=== PATIENT | female | born 1960 | race Caucasian/White ===

== ENCOUNTER 2017-08-11 00:04 | Emergency (ER) | payer MEDICAID ==
[~2017-08-11] VITALS: Ht 152.4 cm; Wt 43.5 kg
[~2017-08-11 00:04] MED LIST: FURO-150 PO; GLYB2.5T4 PO; INSU100C10 SQ; INSU100V9 SQ; LACT10SO PO; OXYB5TAB11 PO; PROP20TA6 PO; RIFA550T PO; SPIR50TA3 PO
[2017-08-11 00:32] VITALS: BP 148/92
== END 2017-08-11 01:18 | disposition left against medical advice (07) ==
LOC: ER 00:04
DX: M79.601 Pain in right arm (principal); Z53.21 Procedure and treatment not carried out due to patient leaving prior to being seen by health care provider
CPT/HCPCS: 82948

== ENCOUNTER 2017-08-17 10:17 | Day surgery (SDC) | payer MEDICAID ==
[2017-08-17] MEDS ORDERED: LIDOcaine 2% 5ml jelly ONE (11:03)
== END 2017-08-17 11:42 | disposition home or self-care (01) ==
LOC: WOUND CARE 10:17
PROVIDERS: ATTEND Surgery
DX: L98.491 Non-pressure chronic ulcer of skin of other sites limited to breakdown of skin (principal)
CPT/HCPCS: 97597; A6021; A6206; A6212

== ENCOUNTER 2017-08-20 11:16 | Day surgery (SDC) | payer MEDICAID ==
[2017-08-20] MEDS ORDERED: LIDOcaine 2% 5ml jelly ONE (12:01)
== END 2017-08-20 13:00 | disposition home or self-care (01) ==
LOC: WOUND CARE 11:16
PROVIDERS: ATTEND Surgery
DX: E11.622 Type 2 diabetes mellitus with other skin ulcer (principal); L98.491 Non-pressure chronic ulcer of skin of other sites limited to breakdown of skin; F17.200 Nicotine dependence, unspecified, uncomplicated
CPT/HCPCS: 36416; 82948; 97597; A6021; A6196; A6212; A6223

== ENCOUNTER 2017-08-24 10:18 | Outpatient (CLI) | payer MEDICAID ==
[2017-08-24] MEDS ORDERED: LIDOcaine 2% 5ml jelly ONE (11:26)
== END 2017-08-24 11:57 | disposition home or self-care (01) ==
LOC: WOUND CARE 10:18
PROVIDERS: ATTEND Surgery
DX: E11.622 Type 2 diabetes mellitus with other skin ulcer (principal); L98.491 Non-pressure chronic ulcer of skin of other sites limited to breakdown of skin; F17.200 Nicotine dependence, unspecified, uncomplicated
CPT/HCPCS: 36416; 82948; 99215; A6021; A6206; A6446

== ENCOUNTER 2017-08-31 10:43 | Day surgery (SDC) | payer MEDICAID ==
[2017-08-31] MEDS ORDERED: LIDOcaine 2% 5ml jelly ONE (11:14)
[2017-08-31] MEDS ORDERED: silver sulfadiazine cream 50gm TP ONE (11:29)
[2017-08-31] MEDS ORDERED: SILV20CR13 TOP (12:12)
== END 2017-08-31 12:35 | disposition home or self-care (01) ==
LOC: WOUND CARE 10:43
PROVIDERS: ATTEND Surgery
DX: E11.622 Type 2 diabetes mellitus with other skin ulcer (principal); L98.491 Non-pressure chronic ulcer of skin of other sites limited to breakdown of skin; L97.211 Non-pressure chronic ulcer of right calf limited to breakdown of skin; F17.200 Nicotine dependence, unspecified, uncomplicated
CPT/HCPCS: 17250; 36416; 82948; A6196; A6212; A6213

== ENCOUNTER 2017-09-14 20:43 | Emergency (ER) | payer MEDICAID ==
[~2017-09-14] VITALS: Ht 152.4 cm; Wt 43.0 kg
[~2017-09-14 20:43] MED LIST changes: +SILV20CR13 TOP
[2017-09-14] MEDS ORDERED: insulin regular, human 10 units/0.1 ml syringe SQ ONE (21:15)
[2017-09-14] MEDS ORDERED: normal saline 1000ML IV soln IVB ONE (21:15)
[2017-09-14 21:24] LABS: BASOPHILS % (AUTO) 0.7 % (0-1); EOSINOPHILS # (AUTO) 0.1 X10'3 (0-0.9); EOSINOPHILS % (AUTO) 1.5 % (0-6); HEMATOCRIT 39.7 % (35.0-45.0); HEMOGLOBIN 13.5 g/dl (12.0-16.0); LYMPHOCYTES % (AUTO) 21.3 % (21-51); MEAN CORPUSCULAR HEMOGLOBIN 28.8 PG (27.0-31.0); MEAN CORPUSCULAR HGB CONC 33.9 % (33.0-36.5); MEAN PLATELET VOLUME 9.8 FL (7.4-10.4); MONOCYTES # (AUTO) 0.2 X10'3 (0-0.9); MONOCYTES % (AUTO) 4.8 % (2-12); NEUTROPHILS # (AUTO) 3.3 X10'3 (1.8-7.7); NEUTROPHILS % (AUTO) 71.7 % (42-75); RED BLOOD COUNT 4.67 X10'6 (4.20-5.60); RED CELL DISTRIBUTION WIDTH 14.6 % (11.5-14.5); WHITE BLOOD COUNT 4.6 X10'3 (4.5-11.0)
[2017-09-14 21:32] LABS: PARTIAL THROMBOPLASTIN TIME 24 SECONDS (22-32); PROTHROMBIN TIME 10.4 SECONDS (9.0-12.0)
[2017-09-14 21:44] LABS: ALANINE AMINOTRANSFERASE 223 U/L (12-78); ALBUMIN 2.2 G/DL (3.4-5.0); ALBUMIN/GLOBULIN RATIO 0.4 (1.1-1.5); ALKALINE PHOSPHATASE 819 IU/L (46-116); ANION GAP 7 (8-16); ASPARTATE AMINO TRANSFERASE 159 U/L (10-37); BILIRUBIN,TOTAL 0.5 MG/DL (0.1-1.0); BLOOD UREA NITROGEN 18 MG/DL (7-18); BUN/CREATININE RATIO 23.4 (6.6-38.0); CALCIUM 8.8 MG/DL (8.5-10.1); CHLORIDE 95 MMOL/L (99-107); CREATININE 0.77 MG/DL (0.40-0.90); MAGNESIUM 1.5 MG/DL (1.5-2.4); POTASSIUM 4.6 MMOL/L (3.5-5.1); SODIUM 131 MMOL/L (135-145); TOTAL PROTEIN 7.4 G/DL (6.4-8.2); eGFR 77 ML/MIN
[2017-09-14 21:47] LABS: GLUCOSE 576 MG/DL (70-104)
[2017-09-14] MEDS ORDERED: metoclopramide 5 mg/ml inj IM ONE (22:55)
[2017-09-14 22:58] LABS: CLARITY,URINE CLEAR (Clear); COLOR,URINE YELLOW (Yellow); GLUCOSE, URINE >=1000 mg/dl (Neg); KETONES,URINE NEGATIVE (Neg); LEUKOCYTE ESTERASE ,URINE NEGATIVE (Neg); NITRITES, URINE NEGATIVE (Neg); OCCULT BLOOD,URINE TRACE-INTACT (Neg); PROTEIN,URINE 100 mg/dl (Neg)
[2017-09-14 23:00] LABS: UA COLLECTION TYPE CLN CATCH MIDSTREAM
[2017-09-14 23:03] VITALS: BP 152/95
[2017-09-14 23:04] LABS: BACTERIA,URINE 3+ /HPF (Neg); SQUAMOUS EPITHELIAL CELL,UR FEW /LPF (FEW); WBC,URINE 0-4 /HPF (0-4)
[2017-09-15 00:08] LABS: PLATELET COUNT 82 X10'3 (140-440)
== END 2017-09-14 23:47 | disposition home or self-care (01) ==
LOC: ER 20:44
DX: E11.65 Type 2 diabetes mellitus with hyperglycemia (principal); F15.90 Other stimulant use, unspecified, uncomplicated; R74.0 Nonspecific elevation of levels of transaminase and lactic acid dehydrogenase [LDH]; F17.200 Nicotine dependence, unspecified, uncomplicated; F11.10 Opioid abuse, uncomplicated; Z60.2 Problems related to living alone; Z56.0 Unemployment, unspecified; Z79.4 Long term (current) use of insulin
CPT/HCPCS: 36415; 71045; 80053; 81001; 82140; 82948; 83735; 85025; 85610; 85730; 96360; 96372; 99285; J1815; J2765; J7030

== ENCOUNTER 2017-12-05 16:53 | Emergency (ER) | payer MEDICAID ==
[~2017-12-05] VITALS: Ht 152.4 cm; Wt 60.9 kg
[2017-12-05 18:33] LABS: BASOPHILS % (AUTO) 0.4 % (0-1); EOSINOPHILS # (AUTO) 0.1 X10'3 (0-0.9); EOSINOPHILS % (AUTO) 1.6 % (0-6); HEMATOCRIT 38.2 % (35.0-45.0); HEMOGLOBIN 12.6 g/dl (12.0-16.0); LYMPHOCYTES # (AUTO) 0.9 X10'3 (1.1-4.8); LYMPHOCYTES % (AUTO) 10.5 % (21-51); MEAN CORPUSCULAR HEMOGLOBIN 26.9 PG (27.0-31.0); MEAN CORPUSCULAR HGB CONC 33.1 % (33.0-36.5); MEAN CORPUSCULAR VOLUME 81.4 FL (78-98); MEAN PLATELET VOLUME 7.7 FL (7.4-10.4); MONOCYTES # (AUTO) 0.2 X10'3 (0-0.9); MONOCYTES % (AUTO) 2.8 % (2-12); NEUTROPHILS % (AUTO) 84.7 % (42-75); PLATELET COUNT 241 X10'3 (140-440); RED BLOOD COUNT 4.69 X10'6 (4.20-5.60); WHITE BLOOD COUNT 8.3 X10'3 (4.5-11.0)
[2017-12-05 18:43] LABS: PARTIAL THROMBOPLASTIN TIME 24 SECONDS (22-32); PROTHROMBIN TIME 10.7 SECONDS (9.0-12.0)
[2017-12-05 19:00] LABS: ALANINE AMINOTRANSFERASE 48 U/L (12-78); ALBUMIN 2.2 G/DL (3.4-5.0); ALBUMIN/GLOBULIN RATIO 0.4 (1.1-1.5); ALKALINE PHOSPHATASE 439 IU/L (46-116); ANION GAP 8 (8-16); ASPARTATE AMINO TRANSFERASE 43 U/L (10-37); BILIRUBIN,TOTAL 0.4 MG/DL (0.1-1.0); BLOOD UREA NITROGEN 12 MG/DL (7-18); BUN/CREATININE RATIO 14.3 (6.6-38.0); CALCIUM 8.9 MG/DL (8.5-10.1); CHLORIDE 95 MMOL/L (99-107); CREATININE 0.84 MG/DL (0.40-0.90); LIPASE 238 U/L (73-393); POTASSIUM 3.7 MMOL/L (3.5-5.1); SODIUM 132 MMOL/L (135-145); TOTAL CARBON DIOXIDE 29.4 MMOL/L (24-32); TOTAL PROTEIN 7.7 G/DL (6.4-8.2); eGFR 70 ML/MIN
[2017-12-05 19:03] LABS: GLUCOSE 575 MG/DL (70-104)
[2017-12-05] MEDS ORDERED: albumin (human) 25% 100 ML IV solution IV ONE (19:45)
[2017-12-05] MEDS ORDERED: ketorolac tromethamine 15mg/ml inj. IM ONE (19:55)
[2017-12-05] MEDS ORDERED: BUPIVAcaine/PF 2.5 mg/ml (0.25%) 30ml vial IJ ONE (20:10)
[2017-12-05 20:45] LABS: BODY FLUID PH (NON-PLEURAL) 7.5
[2017-12-05 21:15] LABS: GLUCOSE,BODY FLUID 606 MG/DL
[2017-12-05 21:32] LABS: TOTAL PROTEIN,BODY FLUID < 2.0 G/DL
[2017-12-05 21:37] LABS: BFAPPEAR CLEAR
[2017-12-05 21:38] LABS: BF MESOTHELIAL CELLS FEW; BF RBC COUNT 64 /CU MM; BF WBC COUNT 130 /CU MM (0-1000); BFCOLOR STRAW; BFVOLUME 20 ML; LYMPHOCYTES,BODY FLUID 78 %; MONOCYTES,BODY FLUID 13 %; NEUTROPHILS,BODY FLUID 9 %
[2017-12-05] MEDS ORDERED: normal saline 1000ML IV soln IVB ONE (21:40)
[2017-12-05] MEDS ORDERED: insulin regular, human 10 units/0.1 ml syringe IV ONE (21:40)
[2017-12-06 00:09] VITALS: BP 151/78
== END 2017-12-06 00:16 | disposition home or self-care (01) ==
LOC: ER 16:54
DX: I10 Essential (primary) hypertension (principal); K74.69 Other cirrhosis of liver; B18.2 Chronic viral hepatitis C; E10.65 Type 1 diabetes mellitus with hyperglycemia; R18.8 Other ascites; F17.200 Nicotine dependence, unspecified, uncomplicated; F15.10 Other stimulant abuse, uncomplicated; F12.10 Cannabis abuse, uncomplicated; F11.10 Opioid abuse, uncomplicated; Z79.4 Long term (current) use of insulin; Z60.2 Problems related to living alone; Z56.0 Unemployment, unspecified; Z88.8 Allergy status to other drugs, medicaments and biological substances; Z79.899 Other long term (current) drug therapy
CPT/HCPCS: 36415; 49083; 80053; 82140; 82945; 82948; 83690; 83986; 84157; 85025; 85610; 85730; 87015; 87070; 89051; 96372; 96374; 96375; 99285; A6257; J1815; J1885; J3490; J7030; P9047

== ENCOUNTER 2017-12-27 15:51 | Inpatient (IN) | payer MEDICAID ==
[~2017-12-27] VITALS: Ht 152.4 cm; Wt 58.4 kg
[2017-12-27 16:34] LABS: BASOPHILS # (AUTO) 0.1 X10'3 (0-0.2); BASOPHILS % (AUTO) 0.7 % (0-1); EOSINOPHILS # (AUTO) 0.2 X10'3 (0-0.9); EOSINOPHILS % (AUTO) 2.1 % (0-6); HEMATOCRIT 23.2 % (35.0-45.0); HEMOGLOBIN 7.3 g/dl (12.0-16.0); LYMPHOCYTES % (AUTO) 27.8 % (21-51); MEAN CORPUSCULAR HEMOGLOBIN 24.3 PG (27.0-31.0); MEAN CORPUSCULAR HGB CONC 31.5 % (33.0-36.5); MEAN PLATELET VOLUME 8.4 FL (7.4-10.4); MONOCYTES # (AUTO) 0.4 X10'3 (0-0.9); MONOCYTES % (AUTO) 5.3 % (2-12); NEUTROPHILS # (AUTO) 4.6 X10'3 (1.8-7.7); NEUTROPHILS % (AUTO) 64.1 % (42-75); PLATELET COUNT 153 X10'3 (140-440); RED BLOOD COUNT 3.02 X10'6 (4.20-5.60); RED CELL DISTRIBUTION WIDTH 16.9 % (11.5-14.5); WHITE BLOOD COUNT 7.1 X10'3 (4.5-11.0)
[2017-12-27 16:43] LABS: PROTHROMBIN TIME 10.8 SECONDS (9.0-12.0)
[2017-12-27 16:58] LABS: ALANINE AMINOTRANSFERASE 52 U/L (12-78); ALBUMIN 2.1 G/DL (3.4-5.0); ALBUMIN/GLOBULIN RATIO 0.4 (1.1-1.5); ALKALINE PHOSPHATASE 309 IU/L (46-116); ANION GAP 7 (8-16); ASPARTATE AMINO TRANSFERASE 49 U/L (10-37); BILIRUBIN,TOTAL 0.3 MG/DL (0.1-1.0); BLOOD UREA NITROGEN 8 MG/DL (7-18); BUN/CREATININE RATIO 10.7 (6.6-38.0); CALCIUM 8.1 MG/DL (8.5-10.1); CHLORIDE 99 MMOL/L (99-107); CREATININE 0.75 MG/DL (0.40-0.90); MAGNESIUM 1.8 MG/DL (1.5-2.4); SODIUM 136 MMOL/L (135-145); TOTAL CARBON DIOXIDE 29.6 MMOL/L (24-32); TOTAL PROTEIN 7.1 G/DL (6.4-8.2); eGFR 79 ML/MIN
[2017-12-27 17:08] LABS: GLUCOSE 487 MG/DL (70-104)
[2017-12-27] MEDS ORDERED: pantoprazole 40 MG vial IV ONE (17:20)
[2017-12-27] MEDS ORDERED: normal saline 1000ML IV soln IVB ONE (17:20)
[2017-12-27] MEDS ORDERED: furosemide 10 MG/1 ML 10ml inj IV ONE (17:20)
[2017-12-27] MEDS ORDERED: lactulose 20gm/30ml cup PO PRN (17:30)
[2017-12-27] MEDS ORDERED: metoclopramide 5 mg/ml inj IV PRN (17:35)
[2017-12-27] MEDS ORDERED: diphenhydrAMINE 25mg capsule PO PRN (17:35)
[2017-12-27] MEDS ORDERED: mag hydrox/Alum hydrox/simeth 30ml oral suspension PO PRN (17:35)
[2017-12-27] MEDS ORDERED: ondansetron/PF 4mg/2ml inj IV PRN (17:35)
[2017-12-27] MEDS ORDERED: bisacodyl 10mg suppository rectal RC PRN (17:35)
[2017-12-27] MEDS ORDERED: magnesium hydroxide 30ml (MOM) UD suspension PO PRN (17:35)
[2017-12-27] MEDS ORDERED: diphenhydrAMINE 50 mg/ml inj IV PRN (17:35)
[2017-12-27] MEDS ORDERED: morphine 4 MG/ML inj SYRINge IV PRN ×2 (17:35)
[2017-12-27] MEDS ORDERED: acetaminophen 325mg tablet PO PRN ×2 (17:35)
[2017-12-27] MEDS ORDERED: acetaminophen 650mg rectal suppository RC PRN (17:35)
[2017-12-27] MEDS ORDERED: HYDROmorphone 1 mg/ml syringe IV PRN ×2 (17:35)
[2017-12-27] MEDS ORDERED: insulin Lispro (HumaLOG) vial - multi-dose SQ SCH (17:40)
[2017-12-27] MEDS ORDERED: dextrose ORAL solution 15 GM/59 ML bottle PO PRN (17:40)
[2017-12-27] MEDS ORDERED: MESSAGE TO PHARMACY PO ONE (17:40)
[2017-12-27] MEDS ORDERED: dextrose 50%-water 50ml dispensing syringe IV PRN ×2 (17:40)
[2017-12-27] MEDS ORDERED: glucagon, human recombinant 1mg kit SUBCUT PRN (17:40)
[2017-12-27 18:10] LABS: HEMOGLOBIN A1C 12.9 % (4.5-6.2)
[2017-12-27 18:20] LABS: LIPASE 190 U/L (73-393); PHOSPHORUS 3.2 MG/DL (2.3-4.5)
[2017-12-27] MEDS: CefTRIAXone/D5W-Rocephin 1gm 50 ML IV SCH (18:45)
[2017-12-27] MEDS: pantoprazole 40 MG vial IV SCH (18:45)
[2017-12-27] MEDS: spironolactone 50 MG tablet PO SCH (19:13)
[2017-12-27] MEDS: furosemide 10 MG/1 ML 10ml inj IV SCH (19:53)
[2017-12-27] MEDS: docusate sod 100mg capsule PO SCH (19:54)
[2017-12-27] MEDS: oxybutynin 5mg tablet PO SCH (19:54)
[2017-12-27] MEDS: rifaximin 550mg tablet PO SCH (19:54)
[2017-12-27] MEDS: propranolol 10mg tablet PO SCH (20:00)
[2017-12-27] MEDS ORDERED: temazepam 15mg capsule PO PRN (21:00)
[2017-12-27 21:10] VITALS: BP 126/79
[2017-12-27] MEDS ORDERED: insulin Lispro (HumaLOG) vial - multi-dose SQ ONE (21:55)
[2017-12-27 22:00] VITALS: BP 126/79
[2017-12-27] MEDS: insulin glargine (Lantus) pen - multi-dose SQ SCH (22:16)
[2017-12-27] MEDS: HYDROcodone/acetaminophen 10/325mg tab PO PRN (23:08)
[2017-12-27 23:23] VITALS: BP 128/76
[2017-12-27 23:38] LABS: CLARITY,URINE SLIGHTLY CLOUDY (Clear); COLOR,URINE STRAW (Yellow); GLUCOSE, URINE >=1000 mg/dl (Neg); KETONES,URINE NEGATIVE (Neg); LEUKOCYTE ESTERASE ,URINE LARGE (Neg); NITRITES, URINE NEGATIVE (Neg); OCCULT BLOOD,URINE TRACE-INTACT (Neg); PH,URINE 6.5 (4.8-8.0); PROTEIN,URINE NEGATIVE (Neg); UROBILINOGEN,URINE 0.2 E.U/dL (0.2-1.0)
[2017-12-27 23:45] VITALS: BP 125/73
[2017-12-27 23:47] LABS: UA COLLECTION TYPE CLN CATCH MIDSTREAM; URINE AMPHETAMINE SCREEN POSITIVE (Neg); URINE BARBITUATE SCREEN NEGATIVE (Neg); URINE BENZODIAZEPINES SCREEN NEGATIVE (Neg); URINE CANNABINOID SCREEN NEGATIVE (Neg); URINE COCAINE SCREEN NEGATIVE (Neg); URINE METHADONE SCREEN NEGATIVE (Neg); URINE OPIATE SCREEN POSITIVE (Neg); URINE PHENCYCLIDINE SCREEN NEGATIVE (Neg); WBC,URINE 30-50 /HPF (0-4)
[2017-12-27 23:48] LABS: BACTERIA,URINE 4+ /HPF (Neg); RBC,URINE 0-2 /HPF (0-2); SQUAMOUS EPITHELIAL CELL,UR NONE SEEN /LPF (FEW)
[2017-12-28] VITALS (17 sets, daily range): BP systolic 94–120; BP diastolic 43–76
[2017-12-28] MEDS: dextrose ORAL solution 15 GM/59 ML bottle PO PRN ×2 (04:23→04:39)
[2017-12-28 05:21] LABS: BASOPHILS # (AUTO) 0.1 X10'3 (0-0.2); BASOPHILS % (AUTO) 0.7 % (0-1); EOSINOPHILS # (AUTO) 0.5 X10'3 (0-0.9); EOSINOPHILS % (AUTO) 4.5 % (0-6); HEMATOCRIT 30.9 % (35.0-45.0); HEMOGLOBIN 9.9 g/dl (12.0-16.0); LYMPHOCYTES # (AUTO) 2.3 X10'3 (1.1-4.8); LYMPHOCYTES % (AUTO) 19.3 % (21-51); MEAN CORPUSCULAR HEMOGLOBIN 24.8 PG (27.0-31.0); MEAN CORPUSCULAR HGB CONC 32.1 % (33.0-36.5); MEAN CORPUSCULAR VOLUME 77.1 FL (78-98); MEAN PLATELET VOLUME 6.9 FL (7.4-10.4); MONOCYTES # (AUTO) 0.6 X10'3 (0-0.9); NEUTROPHILS # (AUTO) 8.2 X10'3 (1.8-7.7); NEUTROPHILS % (AUTO) 70.5 % (42-75); PLATELET COUNT 283 X10'3 (140-440); RED BLOOD COUNT 4.01 X10'6 (4.20-5.60); RED CELL DISTRIBUTION WIDTH 15.6 % (11.5-14.5); WHITE BLOOD COUNT 11.7 X10'3 (4.5-11.0)
[2017-12-28 05:49] LABS: ALANINE AMINOTRANSFERASE 49 U/L (12-78); ALBUMIN 1.9 G/DL (3.4-5.0); ALBUMIN/GLOBULIN RATIO 0.4 (1.1-1.5); ALKALINE PHOSPHATASE 253 IU/L (46-116); ANION GAP 6 (8-16); ASPARTATE AMINO TRANSFERASE 60 U/L (10-37); BILIRUBIN,TOTAL 0.6 MG/DL (0.1-1.0); BLOOD UREA NITROGEN 9 MG/DL (7-18); BUN/CREATININE RATIO 14.1 (6.6-38.0); CHLORIDE 102 MMOL/L (99-107); CREATININE 0.64 MG/DL (0.40-0.90); GLUCOSE 93 MG/DL (70-104); POTASSIUM 3.3 MMOL/L (3.5-5.1); SODIUM 138 MMOL/L (135-145); TOTAL CARBON DIOXIDE 29.6 MMOL/L (24-32); TOTAL PROTEIN 6.8 G/DL (6.4-8.2); eGFR > 90 ML/MIN
[2017-12-28] MEDS: pantoprazole 40 MG vial IV SCH (07:30)
[2017-12-28] MEDS: CefTRIAXone/D5W-Rocephin 1gm 50 ML IV SCH (07:30)
[2017-12-28] MEDS: oxybutynin 5mg tablet PO SCH ×2 (07:31→20:21)
[2017-12-28] MEDS: propranolol 10mg tablet PO SCH ×2 (07:31→20:21)
[2017-12-28] MEDS: furosemide 10 MG/1 ML 10ml inj IV SCH ×2 (07:31→20:21)
[2017-12-28] MEDS: rifaximin 550mg tablet PO SCH ×2 (07:31→20:21)
[2017-12-28] MEDS: spironolactone 50 MG tablet PO SCH (07:31)
[2017-12-28] MEDS: docusate sod 100mg capsule PO SCH ×2 (07:31→20:21)
[2017-12-28] MEDS: K and/or MAG REPLACEMENT MC SCH (09:40)
[2017-12-28] MEDS ORDERED: potassium Cl 20 mEq SR tablet PO PRN (09:40)
[2017-12-28] MEDS ORDERED: potassium Cl 40MEQ/NS 500ml 500 ML IV PRN ×2 (09:40)
[2017-12-28] MEDS: HYDROcodone/acetaminophen 10/325mg tab PO PRN ×2 (10:54→14:57)
[2017-12-28] MEDS: potassium Cl 20 mEq SR tablet PO PRN ×3 (10:54→20:24)
[2017-12-28] MEDS ORDERED: LIDOcaine 0.5% (5mg/ml) 50ml vial ONE (11:25)
[2017-12-28] MEDS ORDERED: albumin (human) 25% 100 ML IV solution IV ONE (12:30)
[2017-12-28] MEDS: insulin glargine (Lantus) pen - multi-dose SQ SCH (21:47)
[2017-12-28] MEDS: HYDROcodone/acetaminophen 5mg/325mg tablet PO PRN (22:23)
[2017-12-29 02:00] VITALS: BP 104/57
[2017-12-29 06:00] VITALS: BP 142/67
[2017-12-29 06:37] LABS: BASOPHILS # (AUTO) 0.1 X10'3 (0-0.2); BASOPHILS % (AUTO) 0.6 % (0-1); EOSINOPHILS # (AUTO) 0.3 X10'3 (0-0.9); EOSINOPHILS % (AUTO) 2.8 % (0-6); HEMATOCRIT 31.1 % (35.0-45.0); HEMOGLOBIN 9.8 g/dl (12.0-16.0); LYMPHOCYTES % (AUTO) 27.7 % (21-51); MEAN CORPUSCULAR HEMOGLOBIN 24.4 PG (27.0-31.0); MEAN CORPUSCULAR HGB CONC 31.6 % (33.0-36.5); MEAN CORPUSCULAR VOLUME 77.4 FL (78-98); MEAN PLATELET VOLUME 6.9 FL (7.4-10.4); MONOCYTES # (AUTO) 0.8 X10'3 (0-0.9); MONOCYTES % (AUTO) 7.1 % (2-12); NEUTROPHILS # (AUTO) 6.7 X10'3 (1.8-7.7); NEUTROPHILS % (AUTO) 61.8 % (42-75); PLATELET COUNT 314 X10'3 (140-440); RED BLOOD COUNT 4.02 X10'6 (4.20-5.60); RED CELL DISTRIBUTION WIDTH 16.5 % (11.5-14.5); WHITE BLOOD COUNT 10.8 X10'3 (4.5-11.0)
[2017-12-29 07:02] LABS: ALANINE AMINOTRANSFERASE 39 U/L (12-78); ALBUMIN 2.1 G/DL (3.4-5.0); ALBUMIN/GLOBULIN RATIO 0.5 (1.1-1.5); ALKALINE PHOSPHATASE 219 IU/L (46-116); ANION GAP 7 (8-16); ASPARTATE AMINO TRANSFERASE 48 U/L (10-37); BILIRUBIN,TOTAL 0.4 MG/DL (0.1-1.0); BLOOD UREA NITROGEN 15 MG/DL (7-18); BUN/CREATININE RATIO 23.1 (6.6-38.0); CHLORIDE 103 MMOL/L (99-107); CREATININE 0.65 MG/DL (0.40-0.90); POTASSIUM 3.5 MMOL/L (3.5-5.1); SODIUM 139 MMOL/L (135-145); TOTAL CARBON DIOXIDE 29.5 MMOL/L (24-32); TOTAL PROTEIN 6.6 G/DL (6.4-8.2); eGFR > 90 ML/MIN
[2017-12-29 07:04] LABS: GLUCOSE 46 MG/DL (70-104)
[2017-12-29] MEDS: K and/or MAG REPLACEMENT MC SCH (08:00)
[2017-12-29 10:00] VITALS: BP 114/66
[2017-12-29] MEDS: pantoprazole 40 MG vial IV SCH (10:06)
[2017-12-29] MEDS: furosemide 10 MG/1 ML 10ml inj IV SCH (10:06)
[2017-12-29] MEDS: docusate sod 100mg capsule PO SCH ×2 (10:07→20:26)
[2017-12-29] MEDS: spironolactone 50 MG tablet PO SCH (10:07)
[2017-12-29] MEDS: rifaximin 550mg tablet PO SCH ×2 (10:07→20:26)
[2017-12-29] MEDS: propranolol 10mg tablet PO SCH ×2 (10:07→20:26)
[2017-12-29] MEDS: oxybutynin 5mg tablet PO SCH ×2 (10:07→20:26)
[2017-12-29] MEDS: CefTRIAXone/D5W-Rocephin 1gm 50 ML IV SCH ×2 (10:07→20:25)
[2017-12-29] MEDS: HYDROcodone/acetaminophen 10/325mg tab PO PRN (10:08)
[2017-12-29] MEDS: HYDROcodone/acetaminophen 5mg/325mg tablet PO PRN ×2 (17:09→22:18)
[2017-12-29 18:00] VITALS: BP 125/76
[2017-12-29 22:00] VITALS: BP 125/71
[2017-12-29 22:09] LABS: CLARITY,URINE CLEAR (Clear); COLOR,URINE YELLOW (Yellow); GLUCOSE, URINE NEGATIVE (Neg); KETONES,URINE NEGATIVE (Neg); LEUKOCYTE ESTERASE ,URINE SMALL (Neg); NITRITES, URINE NEGATIVE (Neg); OCCULT BLOOD,URINE NEGATIVE (Neg); PH,URINE 7.5 (4.8-8.0); PROTEIN,URINE TRACE mg/dl (Neg)
[2017-12-29 22:10] LABS: UA COLLECTION TYPE CLN CATCH MIDSTREAM
[2017-12-29 22:23] LABS: BACTERIA,URINE FEW /HPF (Neg); MUCUS STRANDS FEW /LPF (Neg); SQUAMOUS EPITHELIAL CELL,UR FEW /LPF (FEW)
[2017-12-29 22:24] LABS: RBC,URINE NONE SEEN /HPF (0-2)
[2017-12-30] MEDS: HYDROcodone/acetaminophen 5mg/325mg tablet PO PRN ×2 (02:13→08:44)
[2017-12-30 06:00] VITALS: BP 113/52
[2017-12-30 06:32] LABS: BASOPHILS % (AUTO) 0.6 % (0-1); EOSINOPHILS # (AUTO) 0.1 X10'3 (0-0.9); EOSINOPHILS % (AUTO) 2.1 % (0-6); HEMATOCRIT 29.4 % (35.0-45.0); HEMOGLOBIN 9.4 g/dl (12.0-16.0); LYMPHOCYTES # (AUTO) 1.5 X10'3 (1.1-4.8); LYMPHOCYTES % (AUTO) 33.1 % (21-51); MEAN CORPUSCULAR HEMOGLOBIN 24.7 PG (27.0-31.0); MEAN CORPUSCULAR HGB CONC 32.2 % (33.0-36.5); MEAN CORPUSCULAR VOLUME 76.8 FL (78-98); MEAN PLATELET VOLUME 7.3 FL (7.4-10.4); MONOCYTES # (AUTO) 0.4 X10'3 (0-0.9); MONOCYTES % (AUTO) 7.9 % (2-12); NEUTROPHILS # (AUTO) 2.6 X10'3 (1.8-7.7); NEUTROPHILS % (AUTO) 56.3 % (42-75); PLATELET COUNT 169 X10'3 (140-440); RED BLOOD COUNT 3.82 X10'6 (4.20-5.60); RED CELL DISTRIBUTION WIDTH 16.5 % (11.5-14.5); WHITE BLOOD COUNT 4.6 X10'3 (4.5-11.0)
[2017-12-30 06:58] LABS: ALANINE AMINOTRANSFERASE 26 U/L (12-78); ALBUMIN 1.8 G/DL (3.4-5.0); ALBUMIN/GLOBULIN RATIO 0.4 (1.1-1.5); ALKALINE PHOSPHATASE 227 IU/L (46-116); ANION GAP 7 (8-16); ASPARTATE AMINO TRANSFERASE 38 U/L (10-37); BILIRUBIN,TOTAL 0.3 MG/DL (0.1-1.0); BLOOD UREA NITROGEN 18 MG/DL (7-18); BUN/CREATININE RATIO 21.2 (6.6-38.0); CALCIUM 7.8 MG/DL (8.5-10.1); CHLORIDE 100 MMOL/L (99-107); CREATININE 0.85 MG/DL (0.40-0.90); GLUCOSE 382 MG/DL (70-104); SODIUM 133 MMOL/L (135-145); TOTAL CARBON DIOXIDE 26.4 MMOL/L (24-32); TOTAL PROTEIN 6.1 G/DL (6.4-8.2); eGFR 69 ML/MIN
[2017-12-30] MEDS ORDERED: pantoprazole 40mg Tablet.DR PO SCH (07:30)
[2017-12-30] MEDS: K and/or MAG REPLACEMENT MC SCH (08:00)
[2017-12-30] MEDS ORDERED: NUT.TX.GLUC.INTOLER,LAC-FR,REG (BOOST GLUCOSE CONTROL) 237 ML PO SCH (08:00)
[2017-12-30] MEDS: propranolol 10mg tablet PO SCH (08:43)
[2017-12-30] MEDS: docusate sod 100mg capsule PO SCH (08:43)
[2017-12-30] MEDS: spironolactone 50 MG tablet PO SCH (08:43)
[2017-12-30] MEDS: rifaximin 550mg tablet PO SCH (08:44)
[2017-12-30] MEDS: CefTRIAXone/D5W-Rocephin 1gm 50 ML IV SCH (08:44)
[2017-12-30] MEDS: oxybutynin 5mg tablet PO SCH (08:44)
[2018-01-02 10:55] LABS: OCCULT BLOOD STOOL NEGATIVE (Neg)
== END 2017-12-30 12:44 | disposition home or self-care (01) ==
LOC: ER 15:52 → ED HOLD 17:35 → ORTHO 4S 20:48
PROVIDERS: ADMIT Family Medicine; ATTEND Family Medicine
PROC: 30233N1 Transfusion of Nonautologous Red Blood Cells into Peripheral Vein, Percutaneous Approach (ICD-10-PCS; 2017-12-27)
PROC: 0W9G3ZZ Drainage of Peritoneal Cavity, Percutaneous Approach (ICD-10-PCS; principal; 2017-12-28)
DX: K74.60 Unspecified cirrhosis of liver (principal); K76.6 Portal hypertension; R18.8 Other ascites; K72.90 Hepatic failure, unspecified without coma; E11.65 Type 2 diabetes mellitus with hyperglycemia; B19.20 Unspecified viral hepatitis C without hepatic coma; D64.9 Anemia, unspecified; N39.0 Urinary tract infection, site not specified; F11.90 Opioid use, unspecified, uncomplicated; F15.10 Other stimulant abuse, uncomplicated; Z87.11 Personal history of peptic ulcer disease; Z91.14 Patient's other noncompliance with medication regimen; Z87.01 Personal history of pneumonia (recurrent); Z88.8 Allergy status to other drugs, medicaments and biological substances; Z79.899 Other long term (current) drug therapy
CPT/HCPCS: 36415; 49083; 71045; 80053; 80305; 81001; 82140; 82272; 82948; 83036; 83605; 83690; 83735; 83880; 84100; 84443; 84484; 85025; 85610; 86885; 86900; 86901; 86920; 87040; 87070; 93005; 96374; 99285; A6212; C9113; J0696; J1815; J1940; J2001; J2270; J7030; P9016; P9047

== ENCOUNTER 2018-01-24 12:25 | Inpatient (IN) | payer MEDICAID ==
[~2018-01-24] VITALS: Ht 165.1 cm; Wt 48.5 kg
[2018-01-24] VITALS (8 sets, daily range): BP systolic 105–117; BP diastolic 40–69
[2018-01-24] MEDS: insulin glargine (Lantus) pen - multi-dose SQ SCH (00:40)
[~2018-01-24 12:25] MED LIST changes: -SPIR50TA3 PO; +SPIR50TA5 PO
[2018-01-24 13:34] LABS: BASOPHILS % (AUTO) 0.2 % (0-1); EOSINOPHILS % (AUTO) 0 % (0-6); LYMPHOCYTES % (AUTO) 19.2 % (21-51); MEAN CORPUSCULAR HGB CONC 32.2 % (33.0-36.5); MEAN CORPUSCULAR VOLUME 71.3 FL (78-98); MEAN PLATELET VOLUME 8.6 FL (7.4-10.4); MONOCYTES # (AUTO) 0.1 X10'3 (0-0.9); MONOCYTES % (AUTO) 1.8 % (2-12); NEUTROPHILS # (AUTO) 4.2 X10'3 (1.8-7.7); NEUTROPHILS % (AUTO) 78.8 % (42-75); PLATELET COUNT 230 X10'3 (140-440); RED CELL DISTRIBUTION WIDTH 19.1 % (11.5-14.5); WHITE BLOOD COUNT 5.3 X10'3 (4.5-11.0)
[2018-01-24 13:39] LABS: HEMATOCRIT 19.2 % (35.0-45.0); HEMOGLOBIN 6.2 g/dl (12.0-16.0)
[2018-01-24 13:44] LABS: INR 1.2 INR; PARTIAL THROMBOPLASTIN TIME 28 SECONDS (22-32); PROTHROMBIN TIME 11.9 SECONDS (9.0-12.0)
[2018-01-24 14:11] LABS: ALANINE AMINOTRANSFERASE 24 U/L (12-78); ALBUMIN 1.9 G/DL (3.4-5.0); ALBUMIN/GLOBULIN RATIO 0.4 (1.1-1.5); ALKALINE PHOSPHATASE 304 IU/L (46-116); ANION GAP 8 (8-16); ASPARTATE AMINO TRANSFERASE 31 U/L (10-37); BILIRUBIN,TOTAL 0.8 MG/DL (0.1-1.0); BLOOD UREA NITROGEN 17 MG/DL (7-18); BUN/CREATININE RATIO 16.5 (6.6-38.0); CALCIUM 7.8 MG/DL (8.5-10.1); CHLORIDE 94 MMOL/L (99-107); CREATININE 1.03 MG/DL (0.40-0.90); POTASSIUM 3.8 MMOL/L (3.5-5.1); SODIUM 127 MMOL/L (135-145); TOTAL CARBON DIOXIDE 24.7 MMOL/L (24-32); TOTAL PROTEIN 7.2 G/DL (6.4-8.2); eGFR 55 ML/MIN
[2018-01-24 14:14] LABS: GLUCOSE 499 MG/DL (70-104)
[2018-01-24] MEDS ORDERED: normal saline 1000ML IV soln IVB ONE (14:15)
[2018-01-24] MEDS ORDERED: vancomycin/NS 1 GM ADD-VANTAGE 250 ML X 1 DOSE IV ONE (14:25)
[2018-01-24] MEDS ORDERED: pantoprazole IV 80 MG in normal saline 100ml IV soln 100 ML IV ONE (15:20)
[2018-01-24] MEDS ORDERED: ondansetron/PF 4mg/2ml inj IV ONE (15:20)
[2018-01-24] MEDS ORDERED: pantoprazole 40 MG vial IV ONE (15:25)
[2018-01-24] MEDS: piperacillin/tazo 4.5gm/100ml 100 ML IV SCH ×2 (15:46→16:00)
[2018-01-24] MEDS: pantoprazole 40MG/NS 100ML BAG 100 ML IV SCH ×2 (16:00→20:33)
[2018-01-24] MEDS ORDERED: iohexol 300mg/ml 100ml inj. ONE (16:31)
[2018-01-24 17:32] LABS: CLARITY,URINE Cloudy (Clear); COLOR,URINE Yellow (Yellow); GLUCOSE, URINE >=1000 mg/dl (Neg); KETONES,URINE Negative (Neg); LEUKOCYTE ESTERASE ,URINE Trace (Neg); NITRITES, URINE Positive (Neg); OCCULT BLOOD,URINE Trace (Neg); PROTEIN,URINE 100 mg/dl (Neg); URINE AMPHETAMINE SCREEN POSITIVE (Neg); URINE BARBITUATE SCREEN NEGATIVE (Neg); URINE BENZODIAZEPINES SCREEN NEGATIVE (Neg); URINE CANNABINOID SCREEN POSITIVE (Neg); URINE COCAINE SCREEN NEGATIVE (Neg); URINE METHADONE SCREEN NEGATIVE (Neg); URINE OPIATE SCREEN NEGATIVE (Neg); URINE PHENCYCLIDINE SCREEN NEGATIVE (Neg)
[2018-01-24 17:34] LABS: UA COLLECTION TYPE CLN CATCH MIDSTREAM
[2018-01-24 17:40] LABS: BACTERIA,URINE 3+ /HPF (Neg); SQUAMOUS EPITHELIAL CELL,UR FEW /LPF (FEW); WBC CLUMPS,URINE FEW /HPF (NEGATIVE); WBC,URINE 50-100 /HPF (0-4)
[2018-01-24 17:41] LABS: RBC,URINE 0-2 /HPF (0-2)
[2018-01-24] MEDS ORDERED: LIDOcaine 1.5% w/epinephrine 1:200,000 5ml ampul IJ ONE (17:55)
[2018-01-24] MEDS ORDERED: octreotide inj. 1,250 MCG in normal saline 250ml IV soln 250 ML IV ONE (18:05)
[2018-01-24] MEDS ORDERED: insulin regular, human 10 units/0.1 ml syringe IV ONE (18:10)
[2018-01-24] MEDS ORDERED: acetaminophen 325mg tablet PO ONE (18:15)
[2018-01-24 18:51] LABS: ABG BASE EXCESS -2.8 mmol/L (-2.0-3.0); ABG HCO3 19.3 mmol/L (22.0-26.0); ABG OXYGEN SATURATION 91.1 % (95-98); ABG PCO2 (T) 24.2 mmHg (32.0-45.0); ABG PO2 (T) 57.3 mmHg (83-108); FCOHb 1.7 % (0.5-1.5); FMetHb 0.3 % (0.3-1.12); FO2Hb 89.3 % (94-100); PATIENT TEMPERATURE 37.5; RESPIRATORY RATE (OBSERVED) 24 b/min; TOTAL HEMOGLOBIN 7.6 G/dl (12.0-16.0)
[2018-01-24 19:24] LABS: CREATINE KINASE 125 U/L (26-192)
[2018-01-24 19:56] LABS: LYMPHOCYTES,BODY FLUID 77 %; MONOCYTES,BODY FLUID 11 %; NEUTROPHILS,BODY FLUID 12 %
[2018-01-24 19:57] LABS: BF MESOTHELIAL CELLS OCCASIONAL; BF RBC COUNT 153 /CU MM; BF WBC COUNT 23 /CU MM (0-1000); BFAPPEAR CLEAR; BFCOLOR STRAW; BFVOLUME 45 ML
[2018-01-24] MEDS ORDERED: dextrose 50%-water 50ml dispensing syringe IV PRN ×2 (20:55)
[2018-01-24] MEDS ORDERED: magnesium hydroxide 30ml (MOM) UD suspension PO PRN (20:55)
[2018-01-24] MEDS ORDERED: ondansetron/PF 4mg/2ml inj IV PRN (20:55)
[2018-01-24] MEDS ORDERED: dextrose ORAL solution 15 GM/59 ML bottle PO PRN ×2 (20:55)
[2018-01-24] MEDS ORDERED: MESSAGE TO PHARMACY PO ONE (20:55)
[2018-01-24] MEDS ORDERED: acetaminophen 650mg rectal suppository RC PRN (20:55)
[2018-01-24] MEDS ORDERED: acetaminophen 325mg tablet PO PRN ×2 (20:55)
[2018-01-24] MEDS ORDERED: potassium Cl 40MEQ/250ML bag 250 ML IV PRN ×2 (20:55)
[2018-01-24] MEDS ORDERED: glucagon, human recombinant 1mg kit SUBCUT PRN (20:55)
[2018-01-24] MEDS ORDERED: octreotide inj. 1,250 MCG in normal saline 250ml IV soln 243.75 ML IV SCH (21:15)
[2018-01-24] MEDS ORDERED: octreotide inj. 1,250 MCG in normal saline 250ml IV soln 250 ML IV SCH (21:32)
[2018-01-24] MEDS ORDERED: lactulose 20gm/30ml cup PO PRN (21:35)
[2018-01-24 22:31] LABS: BASOPHILS % (AUTO) 0.1 % (0-1); EOSINOPHILS % (AUTO) 0 % (0-6); HEMATOCRIT 25.5 % (35.0-45.0); HEMOGLOBIN 8.3 g/dl (12.0-16.0); LYMPHOCYTES # (AUTO) 0.9 X10'3 (1.1-4.8); LYMPHOCYTES % (AUTO) 20.9 % (21-51); MEAN CORPUSCULAR HEMOGLOBIN 25.2 PG (27.0-31.0); MEAN CORPUSCULAR HGB CONC 32.5 % (33.0-36.5); MEAN CORPUSCULAR VOLUME 77.3 FL (78-98); MEAN PLATELET VOLUME 7.5 FL (7.4-10.4); MONOCYTES # (AUTO) 0.1 X10'3 (0-0.9); MONOCYTES % (AUTO) 1.4 % (2-12); NEUTROPHILS # (AUTO) 3.2 X10'3 (1.8-7.7); NEUTROPHILS % (AUTO) 77.6 % (42-75); PLATELET COUNT 186 X10'3 (140-440); RED CELL DISTRIBUTION WIDTH 21.9 % (11.5-14.5); WHITE BLOOD COUNT 4.2 X10'3 (4.5-11.0)
[2018-01-24] MEDS ORDERED: vancomycin/NS 1 GM ADD-VANTAGE 250 ML IV SCH (23:00)
[2018-01-24 23:06] LABS: OCCULT BLOOD STOOL NEGATIVE (Neg)
[2018-01-24 23:12] LABS: ANISOCYTOSIS 3+; PLATELET ESTIMATE NORMAL
[2018-01-24 23:15] LABS: LARGE PLATELETS FEW; MICROCYTOSIS 2+; POLYCHROMASIA 1+
[2018-01-24] MEDS: normal saline 1000ml 1,000 ML IV SCH (23:31)
[2018-01-25] VITALS (25 sets, daily range): BP systolic 88–119; BP diastolic 43–75
[2018-01-25] MEDS ORDERED: morphine 2 MG/ML inj. syringe IV ONE (00:10)
[2018-01-25] MEDS ORDERED: insulin Lispro (HumaLOG) vial - multi-dose SQ ONE (00:17)
[2018-01-25] MEDS ORDERED: insulin glargine (Lantus) pen - multi-dose SQ ONE (00:18)
[2018-01-25] MEDS: TAZO IV ONE ×2 (00:19→00:23)
[2018-01-25] MEDS: PIPERACILLIN IV ONE ×2 (00:19→00:23)
[2018-01-25] MEDS: pantoprazole 40MG/NS 100ML BAG 100 ML IV SCH ×2 (00:30→06:04)
[2018-01-25] MEDS: piperacillin/tazo 3.375gm/50ml 50 ML IV SCH ×4 (00:41→19:49)
[2018-01-25] MEDS ORDERED: pantoprazole 40MG/NS 100ML BAG 100 ML IV SCH (01:00)
[2018-01-25 04:00] LABS: OXYGEN SATURATION (MIXED VEN) 63.4 % (60-80); PO2 MIXED VENOUS (TEMP COR) 32.4 mmHg (35-46)
[2018-01-25 05:55] LABS: INR 1.3 INR; PARTIAL THROMBOPLASTIN TIME 27 SECONDS (22-32); PROTHROMBIN TIME 13.5 SECONDS (9.0-12.0)
[2018-01-25 06:04] LABS: ALANINE AMINOTRANSFERASE 25 U/L (12-78); ALBUMIN 1.4 G/DL (3.4-5.0); ALBUMIN/GLOBULIN RATIO 0.3 (1.1-1.5); ALKALINE PHOSPHATASE 195 IU/L (46-116); ANION GAP 9 (8-16); ASPARTATE AMINO TRANSFERASE 58 U/L (10-37); BLOOD UREA NITROGEN 17 MG/DL (7-18); CALCIUM 7.1 MG/DL (8.5-10.1); CHLORIDE 103 MMOL/L (99-107); CREATININE 0.74 MG/DL (0.40-0.90); GLUCOSE 167 MG/DL (70-104); MAGNESIUM 1.4 MG/DL (1.5-2.4); PHOSPHORUS 2.6 MG/DL (2.3-4.5); POTASSIUM 3.1 MMOL/L (3.5-5.1); SODIUM 135 MMOL/L (135-145); TOTAL CARBON DIOXIDE 23.1 MMOL/L (24-32); TOTAL PROTEIN 5.9 G/DL (6.4-8.2); eGFR 81 ML/MIN
[2018-01-25 06:13] LABS: BASOPHILS % (AUTO) 0.2 % (0-1); EOSINOPHILS % (AUTO) 0.1 % (0-6); HEMATOCRIT 26.4 % (35.0-45.0); HEMOGLOBIN 8.4 g/dl (12.0-16.0); LYMPHOCYTES # (AUTO) 1.1 X10'3 (1.1-4.8); LYMPHOCYTES % (AUTO) 20.5 % (21-51); MEAN CORPUSCULAR HEMOGLOBIN 25.2 PG (27.0-31.0); MEAN CORPUSCULAR HGB CONC 31.9 % (33.0-36.5); MEAN PLATELET VOLUME 8.4 FL (7.4-10.4); MONOCYTES # (AUTO) 0.3 X10'3 (0-0.9); MONOCYTES % (AUTO) 4.7 % (2-12); NEUTROPHILS % (AUTO) 74.5 % (42-75); PLATELET COUNT 165 X10'3 (140-440); RED BLOOD COUNT 3.34 X10'6 (4.20-5.60); RED CELL DISTRIBUTION WIDTH 20.4 % (11.5-14.5); WHITE BLOOD COUNT 5.4 X10'3 (4.5-11.0)
[2018-01-25] MEDS: normal saline 1000ml 1,000 ML IV SCH ×2 (07:00→20:30)
[2018-01-25 09:13] LABS: HEMATOCRIT 28.1 % (35.0-45.0); HEMOGLOBIN 9.1 g/dl (12.0-16.0); MEAN CORPUSCULAR HEMOGLOBIN 25.6 PG (27.0-31.0); MEAN CORPUSCULAR HGB CONC 32.5 % (33.0-36.5); MEAN PLATELET VOLUME 8.3 FL (7.4-10.4); PLATELET COUNT 153 X10'3 (140-440); RED BLOOD COUNT 3.56 X10'6 (4.20-5.60); RED CELL DISTRIBUTION WIDTH 20.3 % (11.5-14.5); WHITE BLOOD COUNT 6.2 X10'3 (4.5-11.0)
[2018-01-25] MEDS ORDERED: fentaNYL/PF 50MCG/1 ML 2ML syringe ONE (09:14)
[2018-01-25] MEDS ORDERED: LIDOcaine Viscous 15ml cup ONE (09:15)
[2018-01-25] MEDS ORDERED: MIDAZolam 5mg/5ml vial ONE (09:15)
[2018-01-25 09:57] LABS: ANISOCYTOSIS 2+; PLATELET ESTIMATE NORMAL; TOTAL CELLS COUNTED 100
[2018-01-25 09:58] LABS: POLYCHROMASIA 2+
[2018-01-25] MEDS ORDERED: HYDROmorphone 2mg tablet PO ONE (14:25)
[2018-01-25] MEDS: pantoprazole 40mg Tablet.DR PO SCH ×2 (14:33→19:50)
[2018-01-25] MEDS: octreotide 100mcg/1 ml ampule SQ SCH (16:33)
[2018-01-25 16:59] LABS: HEMATOCRIT 28.5 % (35.0-45.0); HEMOGLOBIN 9.2 g/dl (12.0-16.0); MEAN CORPUSCULAR HEMOGLOBIN 25.1 PG (27.0-31.0); MEAN CORPUSCULAR HGB CONC 32.3 % (33.0-36.5); MEAN CORPUSCULAR VOLUME 77.9 FL (78-98); MEAN PLATELET VOLUME 8.3 FL (7.4-10.4); PLATELET COUNT 166 X10'3 (140-440); RED BLOOD COUNT 3.66 X10'6 (4.20-5.60); RED CELL DISTRIBUTION WIDTH 21.3 % (11.5-14.5); WHITE BLOOD COUNT 6.2 X10'3 (4.5-11.0)
[2018-01-25] MEDS: HYDROmorphone 2mg tablet PO PRN (19:50)
[2018-01-25] MEDS: insulin glargine (Lantus) pen - multi-dose SQ SCH ×2 (20:45→20:49)
[2018-01-25] MEDS: insulin Lispro (HumaLOG) vial - multi-dose SQ SCH ×2 (20:45→20:47)
[2018-01-25 21:46] LABS: HEMATOCRIT 27.8 % (35.0-45.0); MEAN CORPUSCULAR HEMOGLOBIN 25.3 PG (27.0-31.0); MEAN CORPUSCULAR HGB CONC 32.5 % (33.0-36.5); MEAN CORPUSCULAR VOLUME 77.7 FL (78-98); MEAN PLATELET VOLUME 8.2 FL (7.4-10.4); PLATELET COUNT 198 X10'3 (140-440); RED BLOOD COUNT 3.58 X10'6 (4.20-5.60); RED CELL DISTRIBUTION WIDTH 20.4 % (11.5-14.5); WHITE BLOOD COUNT 7.3 X10'3 (4.5-11.0)
[2018-01-26] VITALS (23 sets, daily range): BP systolic 93–119; BP diastolic 55–75
[2018-01-26] MEDS: octreotide 100mcg/1 ml ampule SQ SCH ×3 (00:26→16:05)
[2018-01-26] MEDS: normal saline 1000ml 1,000 ML IV SCH ×2 (02:53→12:53)
[2018-01-26] MEDS: piperacillin/tazo 3.375gm/50ml 50 ML IV SCH ×2 (03:06→07:41)
[2018-01-26] MEDS: pantoprazole 40mg Tablet.DR PO SCH ×2 (07:40→19:44)
[2018-01-26] MEDS: furosemide 20MG tablet PO SCH (07:40)
[2018-01-26] MEDS: HYDROmorphone 2mg tablet PO PRN ×3 (07:41→19:44)
[2018-01-26] MEDS: insulin Lispro (HumaLOG) vial - multi-dose SQ SCH ×3 (07:41→21:00)
[2018-01-26] MEDS ORDERED: glimepiride 1 MG tablet PO SCH (08:00)
[2018-01-26 09:19] LABS: BASOPHILS % (AUTO) 0.1 % (0-1); EOSINOPHILS % (AUTO) 0.4 % (0-6); HEMATOCRIT 26.1 % (35.0-45.0); HEMOGLOBIN 8.4 g/dl (12.0-16.0); LYMPHOCYTES # (AUTO) 1.1 X10'3 (1.1-4.8); MEAN CORPUSCULAR HGB CONC 32.4 % (33.0-36.5); MEAN CORPUSCULAR VOLUME 77.2 FL (78-98); MEAN PLATELET VOLUME 7.7 FL (7.4-10.4); MONOCYTES # (AUTO) 0.3 X10'3 (0-0.9); MONOCYTES % (AUTO) 3.4 % (2-12); NEUTROPHILS # (AUTO) 6.6 X10'3 (1.8-7.7); NEUTROPHILS % (AUTO) 82.1 % (42-75); PLATELET COUNT 204 X10'3 (140-440); RED BLOOD COUNT 3.38 X10'6 (4.20-5.60); RED CELL DISTRIBUTION WIDTH 21.6 % (11.5-14.5)
[2018-01-26 09:28] LABS: INR 1.2 INR; PARTIAL THROMBOPLASTIN TIME 31 SECONDS (22-32); PROTHROMBIN TIME 12.5 SECONDS (9.0-12.0)
[2018-01-26 09:32] LABS: ALANINE AMINOTRANSFERASE 39 U/L (12-78); ALBUMIN 1.2 G/DL (3.4-5.0); ALBUMIN/GLOBULIN RATIO 0.2 (1.1-1.5); ALKALINE PHOSPHATASE 211 IU/L (46-116); ANION GAP 5 (8-16); ASPARTATE AMINO TRANSFERASE 98 U/L (10-37); BLOOD UREA NITROGEN 13 MG/DL (7-18); BUN/CREATININE RATIO 19.4 (6.6-38.0); CHLORIDE 101 MMOL/L (99-107); CREATININE 0.67 MG/DL (0.40-0.90); GLUCOSE 199 MG/DL (70-104); MAGNESIUM 1.5 MG/DL (1.5-2.4); PHOSPHORUS 2.1 MG/DL (2.3-4.5); POTASSIUM 3.7 MMOL/L (3.5-5.1); SODIUM 132 MMOL/L (135-145); TOTAL CARBON DIOXIDE 25.8 MMOL/L (24-32); TOTAL PROTEIN 6.3 G/DL (6.4-8.2); VANCOMYCIN,RANDOM 3.9 UG/ML; eGFR 90 ML/MIN
[2018-01-26] MEDS: levoFLOXACIN-Levaquin 500mg/D5 100 ML IV SCH (11:32)
[2018-01-26] MEDS: vancomycin inj. 750 MG in normal saline 250ml IV soln 250 ML IV SCH (16:29)
[2018-01-26] MEDS: lactobacillus rhamnosus 10,000 MMU CELLS/CAPSULE PO SCH (19:43)
[2018-01-26] MEDS: insulin glargine (Lantus) pen - multi-dose SQ SCH ×2 (19:48→21:00)
[2018-01-27] VITALS (7 sets, daily range): BP systolic 108–113; BP diastolic 53–66
[2018-01-27] MEDS: octreotide 100mcg/1 ml ampule SQ SCH ×2 (00:14→08:05)
[2018-01-27] MEDS: vancomycin inj. 750 MG in normal saline 250ml IV soln 250 ML IV SCH ×2 (01:11→13:43)
[2018-01-27 05:44] LABS: BASOPHILS % (AUTO) 0.1 % (0-1); EOSINOPHILS # (AUTO) 0.1 X10'3 (0-0.9); EOSINOPHILS % (AUTO) 0.4 % (0-6); HEMATOCRIT 26.6 % (35.0-45.0); HEMOGLOBIN 8.6 g/dl (12.0-16.0); LYMPHOCYTES # (AUTO) 1.2 X10'3 (1.1-4.8); LYMPHOCYTES % (AUTO) 9.9 % (21-51); MEAN CORPUSCULAR HEMOGLOBIN 24.8 PG (27.0-31.0); MEAN CORPUSCULAR HGB CONC 32.3 % (33.0-36.5); MEAN CORPUSCULAR VOLUME 76.9 FL (78-98); MEAN PLATELET VOLUME 7.6 FL (7.4-10.4); MONOCYTES # (AUTO) 0.3 X10'3 (0-0.9); MONOCYTES % (AUTO) 2.2 % (2-12); NEUTROPHILS # (AUTO) 10.7 X10'3 (1.8-7.7); NEUTROPHILS % (AUTO) 87.4 % (42-75); PLATELET COUNT 222 X10'3 (140-440); RED BLOOD COUNT 3.46 X10'6 (4.20-5.60); WHITE BLOOD COUNT 12.2 X10'3 (4.5-11.0)
[2018-01-27 05:48] LABS: INR 1.2 INR; PROTHROMBIN TIME 12.2 SECONDS (9.0-12.0)
[2018-01-27 05:59] LABS: ALANINE AMINOTRANSFERASE 43 U/L (12-78); ALBUMIN 1.2 G/DL (3.4-5.0); ALBUMIN/GLOBULIN RATIO 0.2 (1.1-1.5); ALKALINE PHOSPHATASE 322 IU/L (46-116); ANION GAP 8 (8-16); ASPARTATE AMINO TRANSFERASE 88 U/L (10-37); BILIRUBIN,TOTAL 0.9 MG/DL (0.1-1.0); BLOOD UREA NITROGEN 14 MG/DL (7-18); BUN/CREATININE RATIO 23.7 (6.6-38.0); CALCIUM 7.4 MG/DL (8.5-10.1); CHLORIDE 101 MMOL/L (99-107); CREATININE 0.59 MG/DL (0.40-0.90); GLUCOSE 134 MG/DL (70-104); MAGNESIUM 1.5 MG/DL (1.5-2.4); PHOSPHORUS 2.5 MG/DL (2.3-4.5); POTASSIUM 3.6 MMOL/L (3.5-5.1); SODIUM 133 MMOL/L (135-145); TOTAL CARBON DIOXIDE 24.5 MMOL/L (24-32); TOTAL PROTEIN 6.1 G/DL (6.4-8.2); eGFR > 90 ML/MIN
[2018-01-27] MEDS: insulin Lispro (HumaLOG) vial - multi-dose SQ SCH ×3 (08:00→21:00)
[2018-01-27] MEDS: levoFLOXACIN-Levaquin 500mg/D5 100 ML IV SCH (08:08)
[2018-01-27] MEDS: furosemide 20MG tablet PO SCH (08:08)
[2018-01-27] MEDS: lactobacillus rhamnosus 10,000 MMU CELLS/CAPSULE PO SCH ×2 (08:09→19:33)
[2018-01-27] MEDS: pantoprazole 40mg Tablet.DR PO SCH ×2 (08:09→19:33)
[2018-01-27] MEDS: HYDROmorphone 2mg tablet PO PRN (11:41)
[2018-01-27] MEDS ORDERED: albuterol 2.5 MG/3 ML nebule NEB PRN (12:05)
[2018-01-27 12:50] LABS: ABG BASE EXCESS 1.2 mmol/L (-2.0-3.0); ABG HCO3 25.5 mmol/L (22.0-26.0); ABG PCO2 (T) 38.8 mmHg (32.0-45.0); ABG PH (T) 7.435 (7.350-7.450); ABG PO2 (T) 48.9 mmHg (83-108); ALLEN'S TEST Positive; FCOHb 0.8 % (0.5-1.5); FLOW 6 L/min; FMetHb 0.3 % (0.3-1.12); FO2Hb 85.1 % (94-100); TOTAL HEMOGLOBIN 9.5 G/dl (12.0-16.0)
[2018-01-27] MEDS: spironolactone 25 MG tablet PO SCH ×2 (13:43→19:33)
[2018-01-27] MEDS: furosemide 40mg/4ml inj IV SCH ×3 (13:43→19:33)
[2018-01-27] MEDS: insulin glargine (Lantus) pen - multi-dose SQ SCH ×2 (20:58→21:00)
[2018-01-28] MEDS ORDERED: VANCOMYCIN LEVEL IV ONE (01:30)
[2018-01-28] MEDS: furosemide 40mg/4ml inj IV SCH ×3 (02:11→13:47)
[2018-01-28] MEDS: vancomycin inj. 750 MG in normal saline 250ml IV soln 250 ML IV SCH (02:15)
[2018-01-28 03:11] VITALS: BP 109/61
[2018-01-28] MEDS: HYDROmorphone 2mg tablet PO PRN ×2 (05:49→19:01)
[2018-01-28 06:52] VITALS: BP 114/67
[2018-01-28] MEDS: insulin Lispro (HumaLOG) vial - multi-dose SQ SCH ×4 (08:00→13:49)
[2018-01-28] MEDS: pantoprazole 40mg Tablet.DR PO SCH ×2 (08:40→18:59)
[2018-01-28] MEDS: levoFLOXACIN-Levaquin 500mg/D5 100 ML IV SCH (08:40)
[2018-01-28] MEDS: furosemide 20MG tablet PO SCH (08:40)
[2018-01-28] MEDS: spironolactone 25 MG tablet PO SCH ×2 (08:40→13:47)
[2018-01-28] MEDS: lactobacillus rhamnosus 10,000 MMU CELLS/CAPSULE PO SCH ×2 (08:40→18:59)
[2018-01-28 11:52] VITALS: BP 100/60
[2018-01-28] MEDS ORDERED: vancomycin/NS 1 GM ADD-VANTAGE 250 ML IV SCH (14:00)
[2018-01-28] MEDS ORDERED: LACT1CAP26 PO (14:28)
[2018-01-28] MEDS ORDERED: HYDR2TAB7 PO (14:28)
[2018-01-28] MEDS ORDERED: VANC1PLA9 IV (14:28)
[2018-01-28] MEDS ORDERED: ALBU2.5V7 NEB (14:28)
[2018-01-28] MEDS ORDERED: SPIR25TA PO (14:28)
[2018-01-28] MEDS ORDERED: PANT40TA4 PO (14:28)
[2018-01-28] MEDS ORDERED: FURO20TA4 PO (14:28)
[2018-01-28] MEDS ORDERED: LEVO500T2 PO (14:28)
[2018-01-28 16:54] VITALS: BP 117/70
[2018-01-28] MEDS ORDERED: furosemide 20MG tablet PO SCH (20:00)
[2018-01-30] MEDS ORDERED: VANCOMYCIN LEVEL IV ONE (01:30)
== END 2018-01-28 19:35 | DRG 720 ==
LOC: ER 12:26 → ED HOLD 20:53 → CICU 2S 23:05 → PCU 3S 01-26 22:06
PROVIDERS: ADMIT Internal Medicine Critical Care Medicine; ATTEND Internal Medicine Critical Care Medicine
PROC: 30233N1 Transfusion of Nonautologous Red Blood Cells into Peripheral Vein, Percutaneous Approach (ICD-10-PCS; principal; 2018-01-24)
PROC: BQ2R1ZZ Computerized Tomography (CT Scan) of Right Lower Extremity using Low Osmolar Contrast (ICD-10-PCS; 2018-01-24)
PROC: 0W9G3ZZ Drainage of Peritoneal Cavity, Percutaneous Approach (ICD-10-PCS; 2018-01-24)
PROC: 02HV33Z Insertion of Infusion Device into Superior Vena Cava, Percutaneous Approach (ICD-10-PCS; 2018-01-24)
PROC: B548ZZA Ultrasonography of Superior Vena Cava, Guidance (ICD-10-PCS; 2018-01-24)
PROC: 0DJ08ZZ Inspection of Upper Intestinal Tract, Via Natural or Artificial Opening Endoscopic (ICD-10-PCS; 2018-01-25)
DX: A41.51 Sepsis due to Escherichia coli [E. coli] (principal); I85.00 Esophageal varices without bleeding; R18.8 Other ascites; E46 Unspecified protein-calorie malnutrition; K76.6 Portal hypertension; E11.65 Type 2 diabetes mellitus with hyperglycemia; D50.0 Iron deficiency anemia secondary to blood loss (chronic); F15.10 Other stimulant abuse, uncomplicated; N39.0 Urinary tract infection, site not specified; K74.60 Unspecified cirrhosis of liver; F12.90 Cannabis use, unspecified, uncomplicated; Z68.1 Body mass index [BMI] 19.9 or less, adult; K92.2 Gastrointestinal hemorrhage, unspecified; L03.115 Cellulitis of right lower limb; K31.89 Other diseases of stomach and duodenum; B19.20 Unspecified viral hepatitis C without hepatic coma; F11.90 Opioid use, unspecified, uncomplicated; Z60.2 Problems related to living alone; B96.20 Unspecified Escherichia coli [E. coli] as the cause of diseases classified elsewhere; Z88.8 Allergy status to other drugs, medicaments and biological substances; Z87.11 Personal history of peptic ulcer disease; Z56.0 Unemployment, unspecified; Z79.4 Long term (current) use of insulin; Z79.899 Other long term (current) drug therapy
CPT/HCPCS: 36415; 36600; 71045; 73701; 80053; 80202; 80305; 81001; 82140; 82272; 82550; 82803; 82810; 82948; 83605; 83735; 84100; 84145; 85018; 85025; 85027; 85610; 85730; 86885; 86900; 86901; 86920; 87040; 87070; 87077; 87088; 87186; 89051; 93005; 93926; 93971; 94760; 97110; 97162; 97530; A4353; A4620; A6213; A6257; A6449; C1751; C1758; C9113; G0500; J1815; J1940; J1956; J2250; J2270; J2354; J2405; J2543; J3010; J3370; J3480; J3490; J7030; P9016; Q9967

== ENCOUNTER 2018-02-13 04:03 | Emergency (ER) | payer MEDICAID ==
[~2018-02-13] VITALS: Ht 152.4 cm; Wt 44.5 kg
[~2018-02-13 04:03] MED LIST changes: +ALBU2.5V7 NEB; -FURO-150 PO; +FURO20TA4 PO; +HYDR2TAB7 PO; +LACT1CAP26 PO; -OXYB5TAB11 PO; +PANT40TA4 PO; -PROP20TA6 PO; -RIFA550T PO; -SILV20CR13 TOP; +SPIR25TA PO; -SPIR50TA5 PO; +VANC1PLA9 IV
[2018-02-13 07:31] VITALS: BP 127/73
== END 2018-02-13 07:36 | disposition left against medical advice (07) ==
LOC: ER 04:06
DX: R18.8 Other ascites (principal); E11.65 Type 2 diabetes mellitus with hyperglycemia; F17.200 Nicotine dependence, unspecified, uncomplicated; F15.90 Other stimulant use, unspecified, uncomplicated; F11.90 Opioid use, unspecified, uncomplicated; Z79.4 Long term (current) use of insulin; Z79.899 Other long term (current) drug therapy; Z88.8 Allergy status to other drugs, medicaments and biological substances; Z60.2 Problems related to living alone; Z56.0 Unemployment, unspecified
CPT/HCPCS: 82948; 99284

== ENCOUNTER 2018-02-26 22:14 | Emergency (ER) | payer MEDICAID ==
[~2018-02-26] VITALS: Ht 152.4 cm; Wt 41.6 kg
[~2018-02-26 22:14] MED LIST changes: +HYDR-3965 PO
[2018-02-26 23:09] LABS: BASOPHILS # (AUTO) 0.1 X10'3 (0-0.2); BASOPHILS % (AUTO) 0.9 % (0-1); EOSINOPHILS # (AUTO) 0.1 X10'3 (0-0.9); EOSINOPHILS % (AUTO) 1.7 % (0-6); HEMOGLOBIN 8.4 g/dl (12.0-16.0); LYMPHOCYTES # (AUTO) 1.5 X10'3 (1.1-4.8); LYMPHOCYTES % (AUTO) 24.6 % (21-51); MEAN CORPUSCULAR HEMOGLOBIN 22.1 PG (27.0-31.0); MEAN CORPUSCULAR HGB CONC 31.1 % (33.0-36.5); MEAN CORPUSCULAR VOLUME 71.1 FL (78-98); MEAN PLATELET VOLUME 7.1 FL (7.4-10.4); MONOCYTES # (AUTO) 0.4 X10'3 (0-0.9); NEUTROPHILS # (AUTO) 4.1 X10'3 (1.8-7.7); NEUTROPHILS % (AUTO) 65.8 % (42-75); PLATELET COUNT 317 X10'3 (140-440); RED CELL DISTRIBUTION WIDTH 20.3 % (11.5-14.5); WHITE BLOOD COUNT 6.3 X10'3 (4.5-11.0)
[2018-02-26 23:20] LABS: PROTHROMBIN TIME 10.6 SECONDS (9.0-12.0)
[2018-02-26 23:24] LABS: ALANINE AMINOTRANSFERASE 28 U/L (12-78); ALBUMIN/GLOBULIN RATIO 0.3 (1.1-1.5); ALKALINE PHOSPHATASE 482 IU/L (46-116); ANION GAP 8 (8-16); ASPARTATE AMINO TRANSFERASE 36 U/L (10-37); BILIRUBIN,TOTAL 0.2 MG/DL (0.1-1.0); BLOOD UREA NITROGEN 14 MG/DL (7-18); CHLORIDE 96 MMOL/L (99-107); GLUCOSE 419 MG/DL (70-104); POTASSIUM 3.6 MMOL/L (3.5-5.1); SODIUM 130 MMOL/L (135-145); TOTAL CARBON DIOXIDE 26.3 MMOL/L (24-32); TOTAL PROTEIN 8.2 G/DL (6.4-8.2); eGFR 86 ML/MIN
[2018-02-26 23:30] LABS: ANISOCYTOSIS 2+; HYPOCHROMASIA 1+; MICROCYTOSIS 1+; PLATELET ESTIMATE NORMAL; POLYCHROMASIA 1+
[2018-02-26 23:33] VITALS: BP 140/81
[2018-02-27] MEDS ORDERED: morphine 4 MG/ML inj SYRINge IM ONE (01:35)
== END 2018-02-27 02:10 | disposition home or self-care (01) ==
LOC: ER 22:14
DX: R18.8 Other ascites (principal); E11.65 Type 2 diabetes mellitus with hyperglycemia; F17.200 Nicotine dependence, unspecified, uncomplicated; F15.90 Other stimulant use, unspecified, uncomplicated; F11.90 Opioid use, unspecified, uncomplicated; Z88.8 Allergy status to other drugs, medicaments and biological substances; Z79.4 Long term (current) use of insulin; Z79.899 Other long term (current) drug therapy; Z56.0 Unemployment, unspecified; Z60.2 Problems related to living alone
CPT/HCPCS: 36415; 80053; 85025; 85610; 96372; 99284; J2270

== ENCOUNTER 2018-03-03 23:57 | Emergency (ER) | payer MEDICAID ==
[~2018-03-03] VITALS: Ht 152.4 cm; Wt 42.2 kg
[2018-03-04] MEDS ORDERED: LIDOcaine 1.5% w/epinephrine 1:200,000 5ml ampul IJ ONE (02:50)
[2018-03-04 02:56] VITALS: BP 129/70
[2018-03-04 02:56] LABS: BASOPHILS % (AUTO) 0.6 % (0-1); EOSINOPHILS # (AUTO) 0.1 X10'3 (0-0.9); EOSINOPHILS % (AUTO) 2.2 % (0-6); HEMOGLOBIN 8.4 g/dl (12.0-16.0); LYMPHOCYTES # (AUTO) 1.7 X10'3 (1.1-4.8); LYMPHOCYTES % (AUTO) 26.2 % (21-51); MEAN CORPUSCULAR HEMOGLOBIN 21.5 PG (27.0-31.0); MEAN CORPUSCULAR HGB CONC 31.3 % (33.0-36.5); MEAN CORPUSCULAR VOLUME 68.7 FL (78-98); MEAN PLATELET VOLUME 6.5 FL (7.4-10.4); MONOCYTES # (AUTO) 0.3 X10'3 (0-0.9); MONOCYTES % (AUTO) 4.4 % (2-12); NEUTROPHILS # (AUTO) 4.4 X10'3 (1.8-7.7); NEUTROPHILS % (AUTO) 66.6 % (42-75); PLATELET COUNT 329 X10'3 (140-440); RED BLOOD COUNT 3.93 X10'6 (4.20-5.60); RED CELL DISTRIBUTION WIDTH 19.5 % (11.5-14.5); WHITE BLOOD COUNT 6.6 X10'3 (4.5-11.0)
[2018-03-04 03:09] LABS: ALANINE AMINOTRANSFERASE 32 U/L (12-78); ALBUMIN 2.1 G/DL (3.4-5.0); ALBUMIN/GLOBULIN RATIO 0.4 (1.1-1.5); ALKALINE PHOSPHATASE 367 IU/L (46-116); ANION GAP 2 (8-16); ASPARTATE AMINO TRANSFERASE 41 U/L (10-37); BILIRUBIN,TOTAL 0.3 MG/DL (0.1-1.0); BLOOD UREA NITROGEN 9 MG/DL (7-18); BUN/CREATININE RATIO 12.9 (6.6-38.0); CALCIUM 8.2 MG/DL (8.5-10.1); CHLORIDE 98 MMOL/L (99-107); GLUCOSE 416 MG/DL (70-104); POTASSIUM 3.5 MMOL/L (3.5-5.1); SODIUM 129 MMOL/L (135-145); TOTAL CARBON DIOXIDE 28.6 MMOL/L (24-32); eGFR 86 ML/MIN
[2018-03-04 04:35] LABS: ANISOCYTOSIS 2+; HYPOCHROMASIA 1+; MICROCYTOSIS 2+; PLATELET ESTIMATE NORMAL; POLYCHROMASIA FEW; ROULEAUX 1+
== END 2018-03-04 04:10 | disposition home or self-care (01) ==
LOC: ER 23:58
DX: R18.8 Other ascites (principal); D64.9 Anemia, unspecified; R10.84 Generalized abdominal pain; E11.9 Type 2 diabetes mellitus without complications; F15.90 Other stimulant use, unspecified, uncomplicated; F11.90 Opioid use, unspecified, uncomplicated; Z86.19 Personal history of other infectious and parasitic diseases; Z60.2 Problems related to living alone; Z56.0 Unemployment, unspecified; Z88.8 Allergy status to other drugs, medicaments and biological substances; Z79.4 Long term (current) use of insulin; Z79.899 Other long term (current) drug therapy
CPT/HCPCS: 36415; 49083; 80053; 85025; 99285; J3490

== ENCOUNTER 2018-03-11 20:13 | Inpatient (IN) | payer MEDICAID ==
[~2018-03-11] VITALS: Ht 152.4 cm; Wt 44.6 kg
[~2018-03-11 20:13] MED LIST changes: +etomidate 2mg/ml inj. ONE; +rocuronium bromide 100mg/10ml (10mg/ml) injection IV ONE
[2018-03-11] MEDS ORDERED: normal saline 1000ML IV soln IVB ONE (20:50)
[2018-03-11] MEDS ORDERED: pantoprazole 40 MG vial IV ONE (21:00)
[2018-03-11] MEDS ORDERED: tranexamic acid inj. 500 MG in normal saline 100ml IV soln 95 ML IV ONE (21:00)
[2018-03-11 21:02] LABS: BASOPHILS % (AUTO) 0.5 % (0-1); EOSINOPHILS # (AUTO) 0.1 X10'3 (0-0.9); EOSINOPHILS % (AUTO) 1.7 % (0-6); LYMPHOCYTES # (AUTO) 1.4 X10'3 (1.1-4.8); LYMPHOCYTES % (AUTO) 25.8 % (21-51); MEAN CORPUSCULAR HEMOGLOBIN 21.4 PG (27.0-31.0); MEAN CORPUSCULAR HGB CONC 31.7 % (33.0-36.5); MEAN CORPUSCULAR VOLUME 67.5 FL (78-98); MEAN PLATELET VOLUME 7.8 FL (7.4-10.4); MONOCYTES # (AUTO) 0.4 X10'3 (0-0.9); MONOCYTES % (AUTO) 7.8 % (2-12); NEUTROPHILS # (AUTO) 3.4 X10'3 (1.8-7.7); NEUTROPHILS % (AUTO) 64.2 % (42-75); PLATELET COUNT 151 X10'3 (140-440); RED BLOOD COUNT 2.52 X10'6 (4.20-5.60); RED CELL DISTRIBUTION WIDTH 18.9 % (11.5-14.5); WHITE BLOOD COUNT 5.3 X10'3 (4.5-11.0)
[2018-03-11 21:06] LABS: HEMOGLOBIN 5.4 g/dl (12.0-16.0)
[2018-03-11 21:11] LABS: INR 1.1 INR; PROTHROMBIN TIME 11.8 SECONDS (9.0-12.0)
[2018-03-11 21:24] LABS: ALANINE AMINOTRANSFERASE 29 U/L (12-78); ALBUMIN 1.6 G/DL (3.4-5.0); ALBUMIN/GLOBULIN RATIO 0.4 (1.1-1.5); ALKALINE PHOSPHATASE 292 IU/L (46-116); ANION GAP 4 (8-16); ASPARTATE AMINO TRANSFERASE 40 U/L (10-37); BILIRUBIN,TOTAL 0.2 MG/DL (0.1-1.0); BLOOD UREA NITROGEN 37 MG/DL (7-18); CALCIUM 7.4 MG/DL (8.5-10.1); CHLORIDE 100 MMOL/L (99-107); CREATININE 0.74 MG/DL (0.40-0.90); MAGNESIUM 1.4 MG/DL (1.5-2.4); POTASSIUM 4.6 MMOL/L (3.5-5.1); SODIUM 132 MMOL/L (135-145); TOTAL PROTEIN 5.9 G/DL (6.4-8.2); eGFR 81 ML/MIN
[2018-03-11 21:30] LABS: GLUCOSE 476 MG/DL (70-104)
[2018-03-11] MEDS ORDERED: midazolam 2 mg/2 ml injection IV PRN (21:40)
[2018-03-11] MEDS ORDERED: fentaNYL/PF 50MCG/1 ML 2ML syringe IV PRN (21:40)
[2018-03-11] MEDS ORDERED: rocuronium 10mg/ml inj IV STA (21:48)
[2018-03-11] MEDS ORDERED: etomidate 2mg/ml inj. IV STA (21:48)
[2018-03-11] MEDS ORDERED: pantoprazole 40MG/NS 100ML BAG 100 ML IV ONE (21:50)
[2018-03-11] MEDS ORDERED: FENTANYL-0.9 % NACL/PF 100 ML IV PRN ×2 (21:50→22:19)
[2018-03-11] MEDS ORDERED: octreotide 100mcg/1 ml ampule IV ONE (21:50)
[2018-03-11] MEDS: octreotide inj. 1,250 MCG in normal saline 250ml IV soln 243.75 ML IV SCH (22:10)
[2018-03-11] MEDS ORDERED: MIDAZolam 5mg/5ml vial ONE ×2 (22:11)
[2018-03-11] MEDS ORDERED: fentaNYL/PF 50MCG/1 ML 2ML syringe ONE (22:11)
[2018-03-11] MEDS ORDERED: midazolam 100mg in NS 100ml 100 ML IV PRN (22:19)
[2018-03-11] MEDS: midazolam 100mg in NS 100ml 100 ML IV SCH (22:19)
[2018-03-11] MEDS ORDERED: potassium Cl 20 mEq SR tablet PO PRN ×2 (22:20)
[2018-03-11] MEDS ORDERED: morphine 4 MG/ML inj SYRINge IV PRN ×2 (22:20)
[2018-03-11] MEDS ORDERED: ondansetron/PF 4mg/2ml inj IV PRN (22:20)
[2018-03-11] MEDS ORDERED: ipratropium/albuterol 3ml nebule NEB PRN (22:20)
[2018-03-11] MEDS ORDERED: potassium Cl 40MEQ/250ML bag 250 ML IV SCH (22:20)
[2018-03-11] MEDS: K, MAG and/or Phos replacement - Verify level? MC SCH (22:20)
[2018-03-11] MEDS ORDERED: acetaminophen 325mg tablet PO PRN ×2 (22:20)
[2018-03-11] MEDS ORDERED: potassium Cl 40MEQ/250ML bag 250 ML IV PRN (22:20)
[2018-03-11 22:26] LABS: PO2 MIXED VENOUS (TEMP COR) 41.8 mmHg (35-46)
[2018-03-11 22:26] LABS: ABG BASE EXCESS -5.2 mmol/L (-2.0-3.0); ABG OXYGEN SATURATION 97.6 % (95-98); ABG PCO2 (T) 43.6 mmHg (32.0-45.0); ABG PH (T) 7.297 (7.350-7.450); ABG PO2 (T) 113.8 mmHg (83-108); ALLEN'S TEST Positive; FCOHb 2.5 % (0.5-1.5); FMetHb 0.3 % (0.3-1.12); FO2Hb 94.9 % (94-100); MINUTE VOLUME 5 L/min; PATIENT TEMPERATURE 36.3; PEEP 5 cm H2O; RESPIRATORY RATE 16 b/min; RESPIRATORY RATE (OBSERVED) 16 b/min; TIDAL VOLUME 350 mL; TOTAL HEMOGLOBIN 6.3 G/dl (12.0-16.0)
[2018-03-11 22:39] VITALS: BP 154/97
[2018-03-11 22:59] VITALS: BP 137/85
[2018-03-12] VITALS (27 sets, daily range): BP systolic 95–154; BP diastolic 59–95
[2018-03-12] MEDS ORDERED: calcium gluconate inj. 1 GM in normal saline 100ml IV soln 90 ML IV ONE (00:50)
[2018-03-12] MEDS ORDERED: dextrose 50%-water 50ml dispensing syringe IV PRN (00:55)
[2018-03-12] MEDS ORDERED: glucagon, human recombinant 1mg kit SUBCUT PRN (00:55)
[2018-03-12] MEDS: normal saline 1000ml 1,000 ML IV SCH ×2 (01:33→16:00)
[2018-03-12] MEDS: piperacillin/tazo 3.375gm/50ml 50 ML IV SCH ×3 (01:36→16:47)
[2018-03-12] MEDS: insulin regular, human vial - multi-dose SQ PRN ×3 (02:15→21:06)
[2018-03-12] MEDS: pantoprazole 40MG/NS 100ML BAG 100 ML IV SCH ×5 (02:42→23:26)
[2018-03-12 02:56] LABS: ABG BASE EXCESS -2.2 mmol/L (-2.0-3.0); ABG HCO3 22.7 mmol/L (22.0-26.0); ABG OXYGEN SATURATION 98.5 % (95-98); ABG PO2 (T) 127.8 mmHg (83-108); ALLEN'S TEST Positive; FCOHb 1.2 % (0.5-1.5); FMetHb 0.2 % (0.3-1.12); FO2Hb 97.1 % (94-100); MINUTE VOLUME 8 L/min; PATIENT TEMPERATURE 36.1; PEEP 5 cm H2O; RESPIRATORY RATE 20 b/min; RESPIRATORY RATE (OBSERVED) 20 b/min; TIDAL VOLUME 350 mL; TOTAL HEMOGLOBIN 11.2 G/dl (12.0-16.0)
[2018-03-12 05:17] LABS: BASOPHILS % (AUTO) 0.4 % (0-1); EOSINOPHILS # (AUTO) 0.2 X10'3 (0-0.9); EOSINOPHILS % (AUTO) 3.1 % (0-6); HEMATOCRIT 35.7 % (35.0-45.0); HEMOGLOBIN 11.9 g/dl (12.0-16.0); LYMPHOCYTES # (AUTO) 1.7 X10'3 (1.1-4.8); LYMPHOCYTES % (AUTO) 29.2 % (21-51); MEAN CORPUSCULAR HEMOGLOBIN 25.4 PG (27.0-31.0); MEAN CORPUSCULAR HGB CONC 33.3 % (33.0-36.5); MEAN CORPUSCULAR VOLUME 76.4 FL (78-98); MEAN PLATELET VOLUME 7.5 FL (7.4-10.4); MONOCYTES # (AUTO) 0.3 X10'3 (0-0.9); MONOCYTES % (AUTO) 4.6 % (2-12); NEUTROPHILS # (AUTO) 3.6 X10'3 (1.8-7.7); NEUTROPHILS % (AUTO) 62.7 % (42-75); PLATELET COUNT 167 X10'3 (140-440); RED BLOOD COUNT 4.67 X10'6 (4.20-5.60); RED CELL DISTRIBUTION WIDTH 20.6 % (11.5-14.5); WHITE BLOOD COUNT 5.7 X10'3 (4.5-11.0)
[2018-03-12 05:41] LABS: ALANINE AMINOTRANSFERASE 34 U/L (12-78); ALBUMIN/GLOBULIN RATIO 0.4 (1.1-1.5); ALKALINE PHOSPHATASE 265 IU/L (46-116); ANION GAP 7 (8-16); ASPARTATE AMINO TRANSFERASE 52 U/L (10-37); BILIRUBIN,TOTAL 1.9 MG/DL (0.1-1.0); BLOOD UREA NITROGEN 33 MG/DL (7-18); BUN/CREATININE RATIO 57.9 (6.6-38.0); CALCIUM 7.6 MG/DL (8.5-10.1); CHLORIDE 103 MMOL/L (99-107); CREATININE 0.57 MG/DL (0.40-0.90); GLUCOSE 342 MG/DL (70-104); MAGNESIUM 1.5 MG/DL (1.5-2.4); POTASSIUM 3.9 MMOL/L (3.5-5.1); SODIUM 134 MMOL/L (135-145); TOTAL CARBON DIOXIDE 24.3 MMOL/L (24-32); TOTAL PROTEIN 6.7 G/DL (6.4-8.2); eGFR > 90 ML/MIN
[2018-03-12 05:58] LABS: ANISOCYTOSIS 3+; HYPOCHROMASIA 1+; MICROCYTOSIS 1+; PLATELET ESTIMATE NORMAL
[2018-03-12] MEDS: K, MAG and/or Phos replacement - Verify level? MC SCH (07:08)
[2018-03-12 11:00] LABS: HEMATOCRIT 33.2 % (35.0-45.0); HEMOGLOBIN 11.1 g/dl (12.0-16.0); MEAN CORPUSCULAR HEMOGLOBIN 25.4 PG (27.0-31.0); MEAN CORPUSCULAR HGB CONC 33.5 % (33.0-36.5); MEAN CORPUSCULAR VOLUME 75.8 FL (78-98); MEAN PLATELET VOLUME 7.7 FL (7.4-10.4); PLATELET COUNT 133 X10'3 (140-440); RED BLOOD COUNT 4.38 X10'6 (4.20-5.60); WHITE BLOOD COUNT 5.7 X10'3 (4.5-11.0)
[2018-03-12] MEDS ORDERED: racepinephrine 11.25mg/0.5ml nebule NEB PRN (15:40)
[2018-03-12] MEDS ORDERED: ipratropium/albuterol 3ml nebule NEB PRN (15:40)
[2018-03-12 16:34] LABS: HEMATOCRIT 35.8 % (35.0-45.0); MEAN CORPUSCULAR HEMOGLOBIN 25.2 PG (27.0-31.0); MEAN CORPUSCULAR HGB CONC 33.5 % (33.0-36.5); MEAN CORPUSCULAR VOLUME 75.1 FL (78-98); MEAN PLATELET VOLUME 6.9 FL (7.4-10.4); PLATELET COUNT 185 X10'3 (140-440); RED BLOOD COUNT 4.77 X10'6 (4.20-5.60); RED CELL DISTRIBUTION WIDTH 20.2 % (11.5-14.5); WHITE BLOOD COUNT 6.9 X10'3 (4.5-11.0)
[2018-03-12] MEDS: midazolam 100mg in NS 100ml 100 ML IV SCH ×2 (19:20→19:22)
[2018-03-12] MEDS: mineral oil/petrolatum ophthal oint EACHEYE SCH (19:22)
[2018-03-12] MEDS: lactobacillus rhamnosus 10,000 MMU CELLS/CAPSULE PO SCH (20:00)
[2018-03-12] MEDS: ipratropium/albuterol 3ml nebule NEB SCH (20:56)
[2018-03-12] MEDS: insulin glargine (Lantus) pen - multi-dose SQ SCH (21:07)
[2018-03-12] MEDS: morphine 2 MG/ML inj. syringe IV PRN (21:28)
[2018-03-12 21:49] LABS: HEMATOCRIT 32.8 % (35.0-45.0); HEMOGLOBIN 10.7 g/dl (12.0-16.0); MEAN CORPUSCULAR HGB CONC 32.7 % (33.0-36.5); MEAN CORPUSCULAR VOLUME 76.3 FL (78-98); PLATELET COUNT 117 X10'3 (140-440); RED CELL DISTRIBUTION WIDTH 20.5 % (11.5-14.5); WHITE BLOOD COUNT 6.6 X10'3 (4.5-11.0)
[2018-03-12] MEDS: octreotide inj. 1,250 MCG in normal saline 250ml IV soln 243.75 ML IV SCH (22:50)
[2018-03-13] VITALS (23 sets, daily range): BP systolic 120–158; BP diastolic 67–98
[2018-03-13] MEDS ORDERED: octreotide inj. 1,250 MCG in normal saline 250ml IV soln 243.75 ML IV SCH (00:15)
[2018-03-13] MEDS: piperacillin/tazo 3.375gm/50ml 50 ML IV SCH ×3 (00:50→18:30)
[2018-03-13] MEDS: normal saline 1000ml 1,000 ML IV SCH (00:59)
[2018-03-13] MEDS: octreotide inj. 1,250 MCG in normal saline 250ml IV soln 243.75 ML IV SCH (01:20)
[2018-03-13] MEDS: morphine 2 MG/ML inj. syringe IV PRN ×7 (01:21→23:43)
[2018-03-13 03:44] LABS: BASOPHILS % (AUTO) 0.5 % (0-1); EOSINOPHILS # (AUTO) 0.2 X10'3 (0-0.9); EOSINOPHILS % (AUTO) 2.3 % (0-6); HEMATOCRIT 26.3 % (35.0-45.0); HEMOGLOBIN 8.6 g/dl (12.0-16.0); LYMPHOCYTES # (AUTO) 1.9 X10'3 (1.1-4.8); LYMPHOCYTES % (AUTO) 26.9 % (21-51); MEAN CORPUSCULAR HGB CONC 32.7 % (33.0-36.5); MEAN CORPUSCULAR VOLUME 76.4 FL (78-98); MEAN PLATELET VOLUME 6.4 FL (7.4-10.4); MONOCYTES # (AUTO) 0.4 X10'3 (0-0.9); MONOCYTES % (AUTO) 5.6 % (2-12); NEUTROPHILS # (AUTO) 4.6 X10'3 (1.8-7.7); NEUTROPHILS % (AUTO) 64.7 % (42-75); PLATELET COUNT 177 X10'3 (140-440); RED BLOOD COUNT 3.44 X10'6 (4.20-5.60); WHITE BLOOD COUNT 7.1 X10'3 (4.5-11.0)
[2018-03-13 03:59] LABS: ALANINE AMINOTRANSFERASE 35 U/L (12-78); ALBUMIN 1.5 G/DL (3.4-5.0); ALBUMIN/GLOBULIN RATIO 0.4 (1.1-1.5); ALKALINE PHOSPHATASE 223 IU/L (46-116); ANION GAP 8 (8-16); ASPARTATE AMINO TRANSFERASE 66 U/L (10-37); BILIRUBIN,TOTAL 0.6 MG/DL (0.1-1.0); BLOOD UREA NITROGEN 20 MG/DL (7-18); BUN/CREATININE RATIO 51.3 (6.6-38.0); CALCIUM 6.5 MG/DL (8.5-10.1); CHLORIDE 110 MMOL/L (99-107); CREATININE 0.39 MG/DL (0.40-0.90); MAGNESIUM 1.2 MG/DL (1.5-2.4); SODIUM 141 MMOL/L (135-145); TOTAL CARBON DIOXIDE 22.8 MMOL/L (24-32); TOTAL PROTEIN 5.4 G/DL (6.4-8.2); eGFR > 90 ML/MIN
[2018-03-13 04:05] LABS: GLUCOSE 43 MG/DL (70-104); POTASSIUM 2.6 MMOL/L (3.5-5.1)
[2018-03-13] MEDS: pantoprazole 40MG/NS 100ML BAG 100 ML IV SCH ×4 (05:16→20:22)
[2018-03-13] MEDS: ipratropium/albuterol 3ml nebule NEB SCH ×4 (05:16→21:01)
[2018-03-13] MEDS: lactobacillus rhamnosus 10,000 MMU CELLS/CAPSULE PO SCH ×2 (08:00→20:00)
[2018-03-13] MEDS: K, MAG and/or Phos replacement - Verify level? MC SCH (08:00)
[2018-03-13] MEDS: mineral oil/petrolatum ophthal oint EACHEYE SCH ×3 (08:00→20:00)
[2018-03-13] MEDS: dextrose 50%-water 50ml dispensing syringe IV PRN ×3 (08:17→15:39)
[2018-03-13] MEDS ORDERED: potassium Cl 20mEq/100mL bag 100 ML IV PRN ×3 (10:45)
[2018-03-13] MEDS: dextrose 5%-1/2 normal saline 1,000 ML IV SCH (11:15)
[2018-03-13] MEDS: spironolactone 25 MG tablet PO SCH ×2 (12:07→20:09)
[2018-03-13] MEDS ORDERED: INSULIN LISPRO 15 UNIT SQ SCH (13:00)
[2018-03-13] MEDS ORDERED: vancomycin/NS 1 GM ADD-VANTAGE 250 ML IV SCH (13:35)
[2018-03-13] MEDS ORDERED: lactulose 20gm/30ml cup PO PRN (14:00)
[2018-03-13] MEDS: VANCOMYCIN 750MG IV in NS 250 ML IV SCH (14:00)
[2018-03-13] MEDS ORDERED: LIDOcaine Viscous 15ml cup ONE (15:16)
[2018-03-13] MEDS ORDERED: MIDAZolam 5mg/5ml vial ONE (15:16)
[2018-03-13] MEDS ORDERED: fentaNYL/PF 50MCG/1 ML 2ML syringe ONE (15:16)
[2018-03-13] MEDS ORDERED: normal saline 1000ml 1,000 ML IV SCH (17:11)
[2018-03-13] MEDS ORDERED: MIDAZolam 5mg/5ml vial IV PRN (17:15)
[2018-03-13] MEDS ORDERED: fentaNYL/PF 50MCG/1 ML 2ML syringe IV PRN (17:15)
[2018-03-13] MEDS ORDERED: simethicone 40mg/0.6ml oral drops 30ml MC ONE (17:15)
[2018-03-13] MEDS ORDERED: LIDOcaine Viscous 15ml cup PO ONE (17:15)
[2018-03-13] MEDS ORDERED: pantoprazole 40mg Tablet.DR PO SCH (20:00)
[2018-03-13] MEDS: furosemide 20MG tablet PO SCH (20:00)
[2018-03-13] MEDS: propranolol 10mg tablet PO SCH (20:09)
[2018-03-13] MEDS: insulin glargine (Lantus) pen - multi-dose SQ SCH (20:09)
[2018-03-13 20:16] LABS: HEMOGLOBIN 11.4 g/dl (12.0-16.0); MEAN CORPUSCULAR HEMOGLOBIN 25.1 PG (27.0-31.0); MEAN CORPUSCULAR HGB CONC 32.7 % (33.0-36.5); MEAN CORPUSCULAR VOLUME 76.7 FL (78-98); MEAN PLATELET VOLUME 6.4 FL (7.4-10.4); PLATELET COUNT 200 X10'3 (140-440); RED BLOOD COUNT 4.56 X10'6 (4.20-5.60); RED CELL DISTRIBUTION WIDTH 20.4 % (11.5-14.5); WHITE BLOOD COUNT 5.2 X10'3 (4.5-11.0)
[2018-03-13 20:25] LABS: MAGNESIUM 1.4 MG/DL (1.5-2.4); POTASSIUM 3.7 MMOL/L (3.5-5.1)
[2018-03-13] MEDS ORDERED: INSULIN GLARGINE HUM REC ANLOG 30 UNIT SQ SCH (21:00)
[2018-03-13] MEDS: magnesium 4gm in 100ml NS 100 ML IV PRN ×2 (21:15→21:23)
[2018-03-14] VITALS (10 sets, daily range): BP systolic 131–162; BP diastolic 66–93
[2018-03-14] MEDS: piperacillin/tazo 3.375gm/50ml 50 ML IV SCH ×3 (00:01→17:49)
[2018-03-14] MEDS: dextrose 5%-1/2 normal saline 1,000 ML IV SCH ×2 (00:15→14:00)
[2018-03-14] MEDS: octreotide inj. 1,250 MCG in normal saline 250ml IV soln 243.75 ML IV SCH (01:09)
[2018-03-14] MEDS: mineral oil/petrolatum ophthal oint EACHEYE SCH ×4 (02:00→19:56)
[2018-03-14] MEDS: ipratropium/albuterol 3ml nebule NEB SCH ×2 (02:31→08:27)
[2018-03-14] MEDS: VANCOMYCIN 750MG IV in NS 250 ML IV SCH ×2 (02:44→13:54)
[2018-03-14] MEDS: morphine 2 MG/ML inj. syringe IV PRN ×3 (02:45→22:29)
[2018-03-14] MEDS: pantoprazole 40MG/NS 100ML BAG 100 ML IV SCH ×4 (02:47→13:55)
[2018-03-14 03:43] LABS: ALANINE AMINOTRANSFERASE 36 U/L (12-78); ALBUMIN 1.6 G/DL (3.4-5.0); ALBUMIN/GLOBULIN RATIO 0.4 (1.1-1.5); ALKALINE PHOSPHATASE 295 IU/L (46-116); ANION GAP 5 (8-16); ASPARTATE AMINO TRANSFERASE 80 U/L (10-37); BILIRUBIN,TOTAL 0.8 MG/DL (0.1-1.0); BLOOD UREA NITROGEN 14 MG/DL (7-18); BUN/CREATININE RATIO 25.9 (6.6-38.0); CHLORIDE 106 MMOL/L (99-107); CREATININE 0.54 MG/DL (0.40-0.90); GLUCOSE 94 MG/DL (70-104); MAGNESIUM 2.4 MG/DL (1.5-2.4); POTASSIUM 3.7 MMOL/L (3.5-5.1); SODIUM 136 MMOL/L (135-145); TOTAL PROTEIN 5.9 G/DL (6.4-8.2); eGFR > 90 ML/MIN
[2018-03-14 04:01] LABS: BASOPHILS % (AUTO) 0.9 % (0-1); EOSINOPHILS # (AUTO) 0.1 X10'3 (0-0.9); EOSINOPHILS % (AUTO) 2.5 % (0-6); HEMATOCRIT 33.7 % (35.0-45.0); HEMOGLOBIN 10.9 g/dl (12.0-16.0); LYMPHOCYTES # (AUTO) 1.4 X10'3 (1.1-4.8); LYMPHOCYTES % (AUTO) 26.1 % (21-51); MEAN CORPUSCULAR HEMOGLOBIN 24.7 PG (27.0-31.0); MEAN CORPUSCULAR HGB CONC 32.2 % (33.0-36.5); MEAN CORPUSCULAR VOLUME 76.7 FL (78-98); MEAN PLATELET VOLUME 6.9 FL (7.4-10.4); MONOCYTES # (AUTO) 0.3 X10'3 (0-0.9); MONOCYTES % (AUTO) 6.4 % (2-12); NEUTROPHILS # (AUTO) 3.4 X10'3 (1.8-7.7); NEUTROPHILS % (AUTO) 64.1 % (42-75); PLATELET COUNT 181 X10'3 (140-440); RED CELL DISTRIBUTION WIDTH 21.1 % (11.5-14.5); WHITE BLOOD COUNT 5.3 X10'3 (4.5-11.0)
[2018-03-14] MEDS: K, MAG and/or Phos replacement - Verify level? MC SCH (08:00)
[2018-03-14] MEDS: furosemide 20MG tablet PO SCH ×2 (08:00→20:25)
[2018-03-14] MEDS: propranolol 10mg tablet PO SCH ×3 (08:00→20:26)
[2018-03-14] MEDS: spironolactone 25 MG tablet PO SCH ×3 (08:00→20:26)
[2018-03-14] MEDS ORDERED: non-formulary drug (Glyburide 1 TAB) PO SCH (08:00)
[2018-03-14] MEDS: lactobacillus rhamnosus 10,000 MMU CELLS/CAPSULE PO SCH ×2 (08:00→20:25)
[2018-03-14] MEDS ORDERED: iohexol 300mg/ml 100ml inj. ONE (13:16)
[2018-03-14 14:05] LABS: HEMOGLOBIN A1C 8.5 % (4.5-6.2)
[2018-03-14] MEDS ORDERED: metoclopramide 5 mg/ml inj IV ONE (14:25)
[2018-03-14] MEDS ORDERED: MIDAZolam 5mg/5ml vial ONE (14:50)
[2018-03-14] MEDS ORDERED: fentaNYL/PF 50MCG/1 ML 2ML syringe ONE (14:50)
[2018-03-14] MEDS ORDERED: LIDOcaine Viscous 15ml cup ONE (14:51)
[2018-03-14] MEDS: pantoprazole 40 MG vial IV SCH (20:25)
[2018-03-14] MEDS: insulin glargine (Lantus) pen - multi-dose SQ SCH (21:00)
[2018-03-15] VITALS (13 sets, daily range): BP systolic 108–143; BP diastolic 50–72
[2018-03-15] MEDS: piperacillin/tazo 3.375gm/50ml 50 ML IV SCH ×3 (00:45→15:56)
[2018-03-15] MEDS ORDERED: VANCOMYCIN LEVEL IV NR (01:30)
[2018-03-15] MEDS: mineral oil/petrolatum ophthal oint EACHEYE SCH ×2 (02:00→08:00)
[2018-03-15] MEDS: morphine 2 MG/ML inj. syringe IV PRN ×6 (02:17→20:41)
[2018-03-15 02:44] LABS: BASOPHILS % (AUTO) 0.4 % (0-1); EOSINOPHILS # (AUTO) 0.1 X10'3 (0-0.9); EOSINOPHILS % (AUTO) 1.5 % (0-6); HEMATOCRIT 35.3 % (35.0-45.0); HEMOGLOBIN 11.7 g/dl (12.0-16.0); LYMPHOCYTES # (AUTO) 1.2 X10'3 (1.1-4.8); LYMPHOCYTES % (AUTO) 23.5 % (21-51); MEAN CORPUSCULAR HEMOGLOBIN 25.2 PG (27.0-31.0); MEAN CORPUSCULAR HGB CONC 33.2 % (33.0-36.5); MEAN CORPUSCULAR VOLUME 75.7 FL (78-98); MEAN PLATELET VOLUME 6.8 FL (7.4-10.4); MONOCYTES # (AUTO) 0.4 X10'3 (0-0.9); MONOCYTES % (AUTO) 7.5 % (2-12); NEUTROPHILS # (AUTO) 3.4 X10'3 (1.8-7.7); NEUTROPHILS % (AUTO) 67.1 % (42-75); PLATELET COUNT 202 X10'3 (140-440); RED BLOOD COUNT 4.66 X10'6 (4.20-5.60); RED CELL DISTRIBUTION WIDTH 21.1 % (11.5-14.5); WHITE BLOOD COUNT 5.1 X10'3 (4.5-11.0)
[2018-03-15 03:00] LABS: ALANINE AMINOTRANSFERASE 37 U/L (12-78); ALBUMIN 1.7 G/DL (3.4-5.0); ALBUMIN/GLOBULIN RATIO 0.4 (1.1-1.5); ALKALINE PHOSPHATASE 307 IU/L (46-116); ANION GAP 5 (8-16); ASPARTATE AMINO TRANSFERASE 53 U/L (10-37); BILIRUBIN,TOTAL 0.8 MG/DL (0.1-1.0); BLOOD UREA NITROGEN 12 MG/DL (7-18); BUN/CREATININE RATIO 15.2 (6.6-38.0); CALCIUM 7.2 MG/DL (8.5-10.1); CHLORIDE 100 MMOL/L (99-107); CREATININE 0.79 MG/DL (0.40-0.90); MAGNESIUM 1.5 MG/DL (1.5-2.4); POTASSIUM 4.2 MMOL/L (3.5-5.1); SODIUM 131 MMOL/L (135-145); TOTAL CARBON DIOXIDE 25.7 MMOL/L (24-32); TOTAL PROTEIN 6.4 G/DL (6.4-8.2); VANCOMYCIN,TROUGH 8.3 UG/ML (6.0-14.0); eGFR 75 ML/MIN
[2018-03-15 03:11] LABS: GLUCOSE 473 MG/DL (70-104)
[2018-03-15] MEDS: insulin regular, human vial - multi-dose SQ PRN (03:49)
[2018-03-15] MEDS: VANCOMYCIN 750MG IV in NS 250 ML IV SCH (05:39)
[2018-03-15] MEDS: propranolol 10mg tablet PO SCH ×3 (07:31→20:41)
[2018-03-15] MEDS: lactobacillus rhamnosus 10,000 MMU CELLS/CAPSULE PO SCH ×2 (07:31→20:41)
[2018-03-15] MEDS: furosemide 20MG tablet PO SCH ×2 (07:39→20:41)
[2018-03-15] MEDS: pantoprazole 40 MG vial IV SCH (07:39)
[2018-03-15] MEDS: K, MAG and/or Phos replacement - Verify level? MC SCH (08:00)
[2018-03-15] MEDS: insulin Lispro (HumaLOG) vial - multi-dose SQ SCH ×3 (08:15→18:29)
[2018-03-15] MEDS: ipratropium/albuterol 3ml nebule NEB SCH ×3 (09:00→21:00)
[2018-03-15] MEDS: spironolactone 25 MG tablet PO SCH ×3 (09:09→20:41)
[2018-03-15] MEDS ORDERED: albumin (human) 25% 100 ML IV solution IV ONE (10:20)
[2018-03-15] MEDS: pantoprazole 40mg Tablet.DR PO SCH ×2 (15:20→20:41)
[2018-03-15] MEDS: vancomycin/NS 1 GM ADD-VANTAGE 250 ML IV SCH (16:53)
[2018-03-15] MEDS: insulin glargine (Lantus) pen - multi-dose SQ SCH (21:44)
[2018-03-16] MEDS: piperacillin/tazo 3.375gm/50ml 50 ML IV SCH ×3 (00:37→15:56)
[2018-03-16] MEDS: ipratropium/albuterol 3ml nebule NEB SCH ×4 (02:43→21:00)
[2018-03-16 03:00] VITALS: BP 118/60
[2018-03-16 04:59] LABS: BASOPHILS % (AUTO) 0.7 % (0-1); EOSINOPHILS # (AUTO) 0.1 X10'3 (0-0.9); EOSINOPHILS % (AUTO) 1.8 % (0-6); HEMATOCRIT 37.2 % (35.0-45.0); HEMOGLOBIN 12.3 g/dl (12.0-16.0); LYMPHOCYTES # (AUTO) 1.3 X10'3 (1.1-4.8); LYMPHOCYTES % (AUTO) 28.9 % (21-51); MEAN CORPUSCULAR HEMOGLOBIN 25.5 PG (27.0-31.0); MEAN CORPUSCULAR HGB CONC 32.9 % (33.0-36.5); MEAN CORPUSCULAR VOLUME 77.2 FL (78-98); MEAN PLATELET VOLUME 7.3 FL (7.4-10.4); MONOCYTES # (AUTO) 0.4 X10'3 (0-0.9); MONOCYTES % (AUTO) 8.9 % (2-12); NEUTROPHILS # (AUTO) 2.8 X10'3 (1.8-7.7); NEUTROPHILS % (AUTO) 59.7 % (42-75); PLATELET COUNT 172 X10'3 (140-440); RED BLOOD COUNT 4.82 X10'6 (4.20-5.60); RED CELL DISTRIBUTION WIDTH 20.2 % (11.5-14.5); WHITE BLOOD COUNT 4.6 X10'3 (4.5-11.0)
[2018-03-16] MEDS: vancomycin/NS 1 GM ADD-VANTAGE 250 ML IV SCH ×2 (05:22→17:08)
[2018-03-16 05:31] LABS: ALANINE AMINOTRANSFERASE 35 U/L (12-78); ALBUMIN/GLOBULIN RATIO 0.4 (1.1-1.5); ALKALINE PHOSPHATASE 284 IU/L (46-116); ANION GAP 4 (8-16); ASPARTATE AMINO TRANSFERASE 48 U/L (10-37); BILIRUBIN,TOTAL 0.5 MG/DL (0.1-1.0); BLOOD UREA NITROGEN 18 MG/DL (7-18); BUN/CREATININE RATIO 24.7 (6.6-38.0); CALCIUM 7.6 MG/DL (8.5-10.1); CHLORIDE 94 MMOL/L (99-107); CREATININE 0.73 MG/DL (0.40-0.90); GLUCOSE 329 MG/DL (70-104); MAGNESIUM 1.2 MG/DL (1.5-2.4); POTASSIUM 3.6 MMOL/L (3.5-5.1); SODIUM 128 MMOL/L (135-145); TOTAL CARBON DIOXIDE 30.5 MMOL/L (24-32); TOTAL PROTEIN 6.5 G/DL (6.4-8.2); eGFR 82 ML/MIN
[2018-03-16 07:59] VITALS: BP 138/73
[2018-03-16] MEDS: K, MAG and/or Phos replacement - Verify level? MC SCH (08:00)
[2018-03-16] MEDS: insulin Lispro (HumaLOG) vial - multi-dose SQ SCH ×3 (08:40→18:40)
[2018-03-16] MEDS: propranolol 10mg tablet PO SCH ×3 (08:44→20:36)
[2018-03-16] MEDS: pantoprazole 40mg Tablet.DR PO SCH ×2 (08:45→20:36)
[2018-03-16] MEDS: lactobacillus rhamnosus 10,000 MMU CELLS/CAPSULE PO SCH ×2 (08:45→20:36)
[2018-03-16] MEDS: spironolactone 25 MG tablet PO SCH ×3 (08:45→20:36)
[2018-03-16] MEDS: furosemide 20MG tablet PO SCH ×2 (08:46→20:36)
[2018-03-16] MEDS: morphine 2 MG/ML inj. syringe IV PRN ×5 (08:47→20:44)
[2018-03-16] MEDS ORDERED: magnesium 4gm in 100ml NS 100 ML IV PRN (09:15)
[2018-03-16] MEDS: magnesium Cl slow-release 64mg tablet PO PRN ×2 (10:26→20:36)
[2018-03-16 10:37] LABS: CLARITY,URINE Clear (Clear); COLOR,URINE Yellow (Yellow); GLUCOSE, URINE >=1000 mg/dl (Neg); KETONES,URINE Negative (Neg); LEUKOCYTE ESTERASE ,URINE Trace (Neg); NITRITES, URINE Negative (Neg); OCCULT BLOOD,URINE Small (Neg); PROTEIN,URINE 100 mg/dl (Neg)
[2018-03-16 10:42] LABS: UA COLLECTION TYPE NON-SPECIFIED
[2018-03-16 11:00] VITALS: BP 95/54
[2018-03-16 11:08] LABS: WBC,URINE 0-4 /HPF (0-4)
[2018-03-16 11:09] LABS: BACTERIA,URINE FEW /HPF (Neg); MUCUS STRANDS NONE SEEN /LPF (Neg); SQUAMOUS EPITHELIAL CELL,UR NONE SEEN /LPF (FEW); TRANSITIONAL EPI CELLS,URINE FEW /HPF; YEAST MODERATE /HPF (NEGATIVE)
[2018-03-16 15:00] VITALS: BP 109/70
[2018-03-16 19:00] VITALS: BP 106/60
[2018-03-16] MEDS: insulin glargine (Lantus) pen - multi-dose SQ SCH (20:40)
[2018-03-16 23:00] VITALS: BP 138/76
[2018-03-17] MEDS: piperacillin/tazo 3.375gm/50ml 50 ML IV SCH ×2 (00:07→07:16)
[2018-03-17] MEDS: morphine 2 MG/ML inj. syringe IV PRN ×3 (02:58→11:01)
[2018-03-17 03:00] VITALS: BP 87/55
[2018-03-17] MEDS: ipratropium/albuterol 3ml nebule NEB SCH ×3 (03:00→15:00)
[2018-03-17] MEDS ORDERED: VANCOMYCIN LEVEL IV ONE (04:30)
[2018-03-17] MEDS: vancomycin/NS 1 GM ADD-VANTAGE 250 ML IV SCH (05:19)
[2018-03-17 05:24] LABS: BASOPHILS % (AUTO) 0.3 % (0-1); EOSINOPHILS # (AUTO) 0.1 X10'3 (0-0.9); EOSINOPHILS % (AUTO) 1.7 % (0-6); HEMATOCRIT 37.1 % (35.0-45.0); HEMOGLOBIN 12.2 g/dl (12.0-16.0); LYMPHOCYTES # (AUTO) 1.4 X10'3 (1.1-4.8); LYMPHOCYTES % (AUTO) 22.9 % (21-51); MEAN CORPUSCULAR HEMOGLOBIN 25.3 PG (27.0-31.0); MEAN CORPUSCULAR HGB CONC 32.9 % (33.0-36.5); MEAN PLATELET VOLUME 7.6 FL (7.4-10.4); MONOCYTES # (AUTO) 0.3 X10'3 (0-0.9); MONOCYTES % (AUTO) 4.5 % (2-12); NEUTROPHILS # (AUTO) 4.3 X10'3 (1.8-7.7); NEUTROPHILS % (AUTO) 70.6 % (42-75); PLATELET COUNT 162 X10'3 (140-440); RED BLOOD COUNT 4.82 X10'6 (4.20-5.60); RED CELL DISTRIBUTION WIDTH 20.5 % (11.5-14.5); WHITE BLOOD COUNT 6.1 X10'3 (4.5-11.0)
[2018-03-17 05:42] LABS: ALANINE AMINOTRANSFERASE 39 U/L (12-78); ALBUMIN/GLOBULIN RATIO 0.4 (1.1-1.5); ALKALINE PHOSPHATASE 329 IU/L (46-116); ANION GAP 4 (8-16); ASPARTATE AMINO TRANSFERASE 70 U/L (10-37); BILIRUBIN,TOTAL 0.3 MG/DL (0.1-1.0); BLOOD UREA NITROGEN 22 MG/DL (7-18); BUN/CREATININE RATIO 37.9 (6.6-38.0); CHLORIDE 98 MMOL/L (99-107); CREATININE 0.58 MG/DL (0.40-0.90); GLUCOSE 167 MG/DL (70-104); POTASSIUM 3.9 MMOL/L (3.5-5.1); SODIUM 133 MMOL/L (135-145); TOTAL CARBON DIOXIDE 31.3 MMOL/L (24-32); TOTAL PROTEIN 6.6 G/DL (6.4-8.2); eGFR > 90 ML/MIN
[2018-03-17 05:46] LABS: MAGNESIUM 1.6 MG/DL (1.5-2.4); VANCOMYCIN,TROUGH 17.2 UG/ML (6.0-14.0)
[2018-03-17 07:00] VITALS: BP 105/61
[2018-03-17] MEDS: spironolactone 25 MG tablet PO SCH ×2 (07:12→12:49)
[2018-03-17] MEDS: pantoprazole 40mg Tablet.DR PO SCH (07:13)
[2018-03-17] MEDS: propranolol 10mg tablet PO SCH ×2 (07:13→12:50)
[2018-03-17] MEDS: lactobacillus rhamnosus 10,000 MMU CELLS/CAPSULE PO SCH (07:13)
[2018-03-17] MEDS: furosemide 20MG tablet PO SCH (07:13)
[2018-03-17] MEDS: K, MAG and/or Phos replacement - Verify level? MC SCH (08:00)
[2018-03-17] MEDS: insulin Lispro (HumaLOG) vial - multi-dose SQ SCH (08:27)
[2018-03-17 11:00] VITALS: BP 107/61
[2018-03-17] MEDS ORDERED: INSU100C10 SQ (14:29)
[2018-03-17] MEDS ORDERED: PROP10TA10 PO (14:29)
[2018-03-17] MEDS ORDERED: CEPH-572 PO (14:33)
[2018-03-17 15:00] VITALS: BP 106/58
== END 2018-03-17 16:50 | disposition home or self-care (01) | DRG 133 ==
LOC: ER 20:13 → ED HOLD 22:19 → ICU 2S 23:43 → PCU 3S 03-13 22:23
PROVIDERS: ADMIT Internal Medicine Critical Care Medicine; ATTEND Internal Medicine Critical Care Medicine
PROC: 0BH17EZ Insertion of Endotracheal Airway into Trachea, Via Natural or Artificial Opening (ICD-10-PCS; principal; 2018-03-11)
PROC: 5A1935Z Respiratory Ventilation, Less than 24 Consecutive Hours (ICD-10-PCS; 2018-03-11)
PROC: 30233L1 Transfusion of Nonautologous Fresh Plasma into Peripheral Vein, Percutaneous Approach (ICD-10-PCS; 2018-03-11)
PROC: 30233N1 Transfusion of Nonautologous Red Blood Cells into Peripheral Vein, Percutaneous Approach (ICD-10-PCS; 2018-03-11)
PROC: 30233K1 Transfusion of Nonautologous Frozen Plasma into Peripheral Vein, Percutaneous Approach (ICD-10-PCS; 2018-03-11)
PROC: 05H533Z Insertion of Infusion Device into Right Subclavian Vein, Percutaneous Approach (ICD-10-PCS; 2018-03-11)
PROC: 0DJ08ZZ Inspection of Upper Intestinal Tract, Via Natural or Artificial Opening Endoscopic (ICD-10-PCS; 2018-03-11)
PROC: 0DJ08ZZ Inspection of Upper Intestinal Tract, Via Natural or Artificial Opening Endoscopic (ICD-10-PCS; 2018-03-13)
PROC: BW211ZZ Computerized Tomography (CT Scan) of Abdomen and Pelvis using Low Osmolar Contrast (ICD-10-PCS; 2018-03-14)
PROC: 0DJ08ZZ Inspection of Upper Intestinal Tract, Via Natural or Artificial Opening Endoscopic (ICD-10-PCS; 2018-03-14)
PROC: 0W9G3ZZ Drainage of Peritoneal Cavity, Percutaneous Approach (ICD-10-PCS; 2018-03-15)
DX: J96.00 Acute respiratory failure, unspecified whether with hypoxia or hypercapnia (principal); I85.00 Esophageal varices without bleeding; R18.8 Other ascites; K92.2 Gastrointestinal hemorrhage, unspecified; K76.6 Portal hypertension; L02.414 Cutaneous abscess of left upper limb; E11.9 Type 2 diabetes mellitus without complications; K74.60 Unspecified cirrhosis of liver; Z60.2 Problems related to living alone; K31.89 Other diseases of stomach and duodenum; F11.90 Opioid use, unspecified, uncomplicated; D64.9 Anemia, unspecified; F15.90 Other stimulant use, unspecified, uncomplicated; B19.20 Unspecified viral hepatitis C without hepatic coma; Z87.11 Personal history of peptic ulcer disease; Z88.8 Allergy status to other drugs, medicaments and biological substances; Z68.1 Body mass index [BMI] 19.9 or less, adult; Z79.4 Long term (current) use of insulin; Z56.0 Unemployment, unspecified
CPT/HCPCS: 36415; 36556; 36600; 49083; 71045; 74177; 80053; 80202; 81001; 82140; 82803; 82810; 82948; 83036; 83605; 83735; 83880; 84132; 84484; 85018; 85025; 85027; 85610; 86301; 86885; 86900; 86901; 86920; 87070; 87075; 87088; 87102; 92616; 93005; 94002; 94003; 94640; 94760; 96365; 96375; 99291; A4620; A4649; A6209; A6212; A6213; A6250; A6258; A6266; C1751; C1758; C1894; C9113; G0500; J0610; J1815; J2250; J2270; J2354; J2543; J2765; J3010; J3370; J3475; J3480; J3490; J7030; P9016; P9047; P9059; Q9967

== ENCOUNTER 2018-03-21 10:33 | Day surgery (SDC) | payer MEDICAID ==
[~2018-03-21 10:33] MED LIST changes: -ALBU2.5V7 NEB; +CEPH-572 PO; -GLYB2.5T4 PO; -HYDR-3965 PO; -HYDR2TAB7 PO; -INSU100V9 SQ; +PROP10TA10 PO; -VANC1PLA9 IV; -etomidate 2mg/ml inj. ONE; -rocuronium bromide 100mg/10ml (10mg/ml) injection IV ONE
== END 2018-03-21 13:00 | disposition home or self-care (01) ==
LOC: WOUND CARE 10:33
PROVIDERS: ATTEND Surgery
DX: E11.622 Type 2 diabetes mellitus with other skin ulcer (principal); L98.492 Non-pressure chronic ulcer of skin of other sites with fat layer exposed; E11.65 Type 2 diabetes mellitus with hyperglycemia; F17.200 Nicotine dependence, unspecified, uncomplicated; F11.90 Opioid use, unspecified, uncomplicated; F15.10 Other stimulant abuse, uncomplicated; F12.90 Cannabis use, unspecified, uncomplicated; Z79.4 Long term (current) use of insulin; Z86.19 Personal history of other infectious and parasitic diseases; Z79.899 Other long term (current) drug therapy
CPT/HCPCS: 97597; A6021; A6206; A6212

== ENCOUNTER 2018-03-28 10:40 | Outpatient (CLI) | payer MEDICAID ==
[~2018-03-28 10:40] MED LIST changes: -CEPH-572 PO
[2018-03-28] MEDS ORDERED: LIDOcaine 2% 5ml jelly ONE (11:43)
[2018-04-01] MEDS ORDERED: PANT40TA4 PO (12:33)
[2018-04-01] MEDS ORDERED: FURO40TA4 PO (12:33)
[2018-04-01] MEDS ORDERED: SPIR50TA5 PO (12:33)
[2018-04-01] MEDS ORDERED: LACT10SO PO (12:33)
[2018-04-01] MEDS ORDERED: PROP10TA10 PO (12:33)
[2018-04-01] MEDS ORDERED: INSU100V11 SQ (12:34)
== END 2018-03-28 12:26 | disposition home or self-care (01) ==
LOC: WOUND CARE 10:40
PROVIDERS: ATTEND Surgery
DX: T81.89XD Other complications of procedures, not elsewhere classified, subsequent encounter (principal); E11.622 Type 2 diabetes mellitus with other skin ulcer; L98.492 Non-pressure chronic ulcer of skin of other sites with fat layer exposed; E11.65 Type 2 diabetes mellitus with hyperglycemia; F17.200 Nicotine dependence, unspecified, uncomplicated; F11.90 Opioid use, unspecified, uncomplicated; F15.10 Other stimulant abuse, uncomplicated; F12.90 Cannabis use, unspecified, uncomplicated; Z79.4 Long term (current) use of insulin; Z86.19 Personal history of other infectious and parasitic diseases; Z79.899 Other long term (current) drug therapy; Y83.8 Other surgical procedures as the cause of abnormal reaction of the patient, or of later complication, without mention of misadventure at the time of the procedure
CPT/HCPCS: 99215; A6212

== ENCOUNTER 2018-04-23 12:23 | Emergency (ER) | payer MEDICAID ==
[~2018-04-23] VITALS: Ht 154.9 cm; Wt 49.0 kg
[~2018-04-23 12:23] MED LIST changes: -FURO20TA4 PO; +FURO40TA4 PO; -INSU100C10 SQ; +INSU100V11 SQ; -SPIR25TA PO; +SPIR50TA5 PO
[2018-04-23 12:27] VITALS: BP 162/95
[2018-04-23] MEDS ORDERED: ondansetron 4mg rapidly disintigrating tab PO ONE (13:50)
[2018-04-23] MEDS ORDERED: HYDROmorphone 1 mg/ml syringe IM ONE (13:50)
[2018-04-23] MEDS ORDERED: HYDR-565 PO (14:55)
== END 2018-04-23 15:36 | disposition home or self-care (01) ==
LOC: ER 12:24
DX: R18.8 Other ascites (principal); E11.9 Type 2 diabetes mellitus without complications; F15.90 Other stimulant use, unspecified, uncomplicated; F11.90 Opioid use, unspecified, uncomplicated; Z88.8 Allergy status to other drugs, medicaments and biological substances; Z79.4 Long term (current) use of insulin; Z79.899 Other long term (current) drug therapy; Z60.2 Problems related to living alone; Z56.0 Unemployment, unspecified
CPT/HCPCS: 96372; 99283; J1170

== ENCOUNTER 2018-04-25 08:14 | Day surgery (SDC) | payer MEDICAID ==
[~2018-04-25] VITALS: Ht 152.4 cm; Wt 43.0 kg
[~2018-04-25 08:14] MED LIST changes: +HYDR-565 PO
[2018-04-25 08:30] VITALS: BP 147/89
[2018-04-25] MEDS ORDERED: HYDR-565 PO (08:36)
[2018-04-25] MEDS ORDERED: GABA-532 PO (08:37)
[2018-04-25] MEDS ORDERED: normal saline 1000ml 1,000 ML IV PRN (08:40)
[2018-04-25] MEDS ORDERED: albumin (human) 25% 100 ML IV solution IV PRN (08:40)
[2018-04-25] MEDS ORDERED: LIDOcaine 1% (10mg/ml)w/preservative injection 20ml MDV SQ ONE (08:40)
[2018-04-25 09:14] VITALS: BP 150/95
[2018-04-25 09:16] VITALS: BP 145/89
[2018-04-25 09:30] VITALS: BP 134/84
[2018-04-25 09:40] VITALS: BP 153/94
[2018-04-25 10:00] VITALS: BP 146/83
== END 2018-04-25 10:10 | disposition home or self-care (01) ==
LOC: SSTAY O 08:14
PROVIDERS: ATTEND Radiology Diagnostic Radiology
DX: R18.8 Other ascites (principal); E11.9 Type 2 diabetes mellitus without complications; F17.210 Nicotine dependence, cigarettes, uncomplicated; F32.9 Major depressive disorder, single episode, unspecified; F41.8 Other specified anxiety disorders; F15.21 Other stimulant dependence, in remission; Z90.49 Acquired absence of other specified parts of digestive tract; Z87.440 Personal history of urinary (tract) infections; Z98.51 Tubal ligation status; Z87.01 Personal history of pneumonia (recurrent); Z87.11 Personal history of peptic ulcer disease; Z86.19 Personal history of other infectious and parasitic diseases; Z79.891 Long term (current) use of opiate analgesic; Z79.4 Long term (current) use of insulin; Z98.890 Other specified postprocedural states; Z79.899 Other long term (current) drug therapy; Z88.8 Allergy status to other drugs, medicaments and biological substances
CPT/HCPCS: 49083; A6257; J2001; J7030

== ENCOUNTER 2018-05-02 14:59 | Emergency (ER) | payer MEDICAID ==
[~2018-05-02] VITALS: Ht 152.4 cm; Wt 46.0 kg
[~2018-05-02 14:59] MED LIST changes: +GABA-532 PO; -LACT1CAP26 PO; -PANT40TA4 PO; -PROP10TA10 PO
[2018-05-02 15:33] LABS: BASOPHILS % (AUTO) 0.4 % (0-1); EOSINOPHILS # (AUTO) 0.1 X10'3 (0-0.9); EOSINOPHILS % (AUTO) 1.8 % (0-6); HEMATOCRIT 32.7 % (35.0-45.0); HEMOGLOBIN 10.9 g/dl (12.0-16.0); LYMPHOCYTES # (AUTO) 1.1 X10'3 (1.1-4.8); LYMPHOCYTES % (AUTO) 17.6 % (21-51); MEAN CORPUSCULAR HEMOGLOBIN 27.7 PG (27.0-31.0); MEAN CORPUSCULAR HGB CONC 33.5 % (33.0-36.5); MEAN CORPUSCULAR VOLUME 82.6 FL (78-98); MEAN PLATELET VOLUME 7.1 FL (7.4-10.4); MONOCYTES # (AUTO) 0.3 X10'3 (0-0.9); MONOCYTES % (AUTO) 4.3 % (2-12); NEUTROPHILS # (AUTO) 4.8 X10'3 (1.8-7.7); NEUTROPHILS % (AUTO) 75.9 % (42-75); PLATELET COUNT 233 X10'3 (140-440); RED BLOOD COUNT 3.95 X10'6 (4.20-5.60); RED CELL DISTRIBUTION WIDTH 16.4 % (11.5-14.5); WHITE BLOOD COUNT 6.3 X10'3 (4.5-11.0)
[2018-05-02] MEDS ORDERED: LIDOcaine 1.5% w/epinephrine 1:200,000 5ml ampul IJ ONE (15:35)
[2018-05-02 15:42] LABS: PROTHROMBIN TIME 10.7 SECONDS (9.0-12.0)
[2018-05-02 15:47] LABS: ALANINE AMINOTRANSFERASE 55 U/L (12-78); ALBUMIN/GLOBULIN RATIO 0.4 (1.1-1.5); ALKALINE PHOSPHATASE 512 IU/L (46-116); ANION GAP 6 (8-16); ASPARTATE AMINO TRANSFERASE 60 U/L (10-37); BILIRUBIN,TOTAL 0.5 MG/DL (0.1-1.0); BLOOD UREA NITROGEN 23 MG/DL (7-18); BUN/CREATININE RATIO 34.3 (6.6-38.0); CALCIUM 8.2 MG/DL (8.5-10.1); CHLORIDE 100 MMOL/L (99-107); CREATININE 0.67 MG/DL (0.40-0.90); POTASSIUM 4.1 MMOL/L (3.5-5.1); SODIUM 133 MMOL/L (135-145); TOTAL CARBON DIOXIDE 26.6 MMOL/L (24-32); TOTAL PROTEIN 6.7 G/DL (6.4-8.2); eGFR 90 ML/MIN
[2018-05-02 15:49] LABS: GLUCOSE 454 MG/DL (70-104)
[2018-05-02] MEDS ORDERED: fentaNYL/PF 50MCG/1 ML 2ML syringe IM ONE ×2 (16:05→16:50)
[2018-05-02] MEDS ORDERED: insulin regular, human 10 units/0.1 ml syringe SQ ONE (16:05)
[2018-05-02] MEDS ORDERED: fentaNYL/PF 50MCG/1 ML 2ML syringe IV ONE (16:35)
[2018-05-02 16:56] VITALS: BP 155/78
[2018-05-02 17:15] LABS: LYMPHOCYTES,BODY FLUID 70 %; MONOCYTES,BODY FLUID 26 %; NEUTROPHILS,BODY FLUID 4 %
[2018-05-02 17:16] LABS: BF RBC COUNT 3975 /CU MM; BF WBC COUNT 93 /CU MM (0-1000); BFAPPEAR CLOUDY; BFCOLOR YELLOW; BFVOLUME 20 ML
== END 2018-05-02 16:59 | disposition home or self-care (01) ==
LOC: ER 15:00
DX: R18.8 Other ascites (principal); E11.65 Type 2 diabetes mellitus with hyperglycemia; F15.90 Other stimulant use, unspecified, uncomplicated; F11.90 Opioid use, unspecified, uncomplicated; Z60.2 Problems related to living alone; Z56.0 Unemployment, unspecified; Z86.19 Personal history of other infectious and parasitic diseases; Z88.8 Allergy status to other drugs, medicaments and biological substances; Z79.4 Long term (current) use of insulin; Z79.899 Other long term (current) drug therapy
CPT/HCPCS: 36415; 49083; 80053; 85025; 85610; 87070; 89051; 96372; 99285; J3010; J3490; 99284; J7030

== ENCOUNTER 2018-05-06 08:03 | Day surgery (SDC) | payer MEDICAID ==
[~2018-05-06] VITALS: Ht 152.4 cm; Wt 43.3 kg
[~2018-05-06 08:03] MED LIST changes: +LIDOcaine 1% (10mg/ml)w/preservative injection 20ml MDV SQ ONE
[2018-05-06 08:31] VITALS: BP 170/97
[2018-05-06] MEDS ORDERED: normal saline 1000ml 1,000 ML IV PRN (08:40)
[2018-05-06] MEDS ORDERED: albumin (human) 25% 100 ML IV solution IV PRN (08:40)
[2018-05-06] MEDS ORDERED: CEPH500C5 PO (11:10)
== END 2018-05-06 09:05 | disposition home or self-care (01) ==
LOC: SSTAY O 08:03
PROVIDERS: ATTEND Radiology Diagnostic Radiology
DX: R18.8 Other ascites (principal); E11.9 Type 2 diabetes mellitus without complications; F17.210 Nicotine dependence, cigarettes, uncomplicated; F32.9 Major depressive disorder, single episode, unspecified; F41.8 Other specified anxiety disorders; F15.11 Other stimulant abuse, in remission; Z98.51 Tubal ligation status; Z79.2 Long term (current) use of antibiotics; Z79.4 Long term (current) use of insulin; Z87.01 Personal history of pneumonia (recurrent); Z87.11 Personal history of peptic ulcer disease; Z86.19 Personal history of other infectious and parasitic diseases; Z79.891 Long term (current) use of opiate analgesic; Z90.49 Acquired absence of other specified parts of digestive tract; Z98.890 Other specified postprocedural states; Z79.899 Other long term (current) drug therapy; Z88.8 Allergy status to other drugs, medicaments and biological substances
CPT/HCPCS: 76705; A6257; J2001; J7030

== ENCOUNTER 2018-05-06 09:12 | Emergency (ER) | payer MEDICAID ==
[~2018-05-06] VITALS: Ht 157.5 cm; Wt 43.2 kg
[~2018-05-06 09:12] MED LIST changes: -LIDOcaine 1% (10mg/ml)w/preservative injection 20ml MDV SQ ONE
[2018-05-06] MEDS ORDERED: normal saline 1000ML IV soln IVB ONE (09:25)
[2018-05-06] MEDS ORDERED: morphine 4 MG/ML inj SYRINge IM ONE (10:05)
[2018-05-06 10:16] LABS: CLARITY,URINE SLIGHTLY CLOUDY (Clear); COLOR,URINE YELLOW (Yellow); GLUCOSE, URINE >=1000 mg/dl (Neg); KETONES,URINE NEGATIVE (Neg); LEUKOCYTE ESTERASE ,URINE NEGATIVE (Neg); NITRITES, URINE POSITIVE (Neg); OCCULT BLOOD,URINE MODERATE (Neg); PROTEIN,URINE 30 mg/dl (Neg); UROBILINOGEN,URINE 0.2 E.U/dL (0.2-1.0)
[2018-05-06 10:28] LABS: UA COLLECTION TYPE STRAIGHT CATH
[2018-05-06 10:29] LABS: WBC,URINE 50-100 /HPF (0-4)
[2018-05-06 10:30] LABS: BACTERIA,URINE 4+ /HPF (Neg); SQUAMOUS EPITHELIAL CELL,UR NONE SEEN /LPF (FEW)
[2018-05-06 10:31] LABS: WBC CLUMPS,URINE MODERATE /HPF (NEGATIVE)
[2018-05-06 10:38] LABS: BASOPHILS # (AUTO) 0.1 X10'3 (0-0.2); BASOPHILS % (AUTO) 1.4 % (0-1); EOSINOPHILS # (AUTO) 0.1 X10'3 (0-0.9); EOSINOPHILS % (AUTO) 2.4 % (0-6); HEMATOCRIT 37.6 % (35.0-45.0); HEMOGLOBIN 12.3 g/dl (12.0-16.0); LYMPHOCYTES % (AUTO) 23.6 % (21-51); MEAN CORPUSCULAR HEMOGLOBIN 27.1 PG (27.0-31.0); MEAN CORPUSCULAR HGB CONC 32.7 % (33.0-36.5); MEAN CORPUSCULAR VOLUME 83.1 FL (78-98); MEAN PLATELET VOLUME 7.3 FL (7.4-10.4); MONOCYTES # (AUTO) 0.3 X10'3 (0-0.9); MONOCYTES % (AUTO) 6.4 % (2-12); NEUTROPHILS # (AUTO) 2.9 X10'3 (1.8-7.7); NEUTROPHILS % (AUTO) 66.2 % (42-75); PLATELET COUNT 210 X10'3 (140-440); RED BLOOD COUNT 4.52 X10'6 (4.20-5.60); RED CELL DISTRIBUTION WIDTH 16.5 % (11.5-14.5); WHITE BLOOD COUNT 4.4 X10'3 (4.5-11.0)
[2018-05-06 10:47] LABS: ALANINE AMINOTRANSFERASE 61 U/L (12-78); ALBUMIN 2.1 G/DL (3.4-5.0); ALBUMIN/GLOBULIN RATIO 0.4 (1.1-1.5); ALKALINE PHOSPHATASE 667 IU/L (46-116); ANION GAP 7 (8-16); ASPARTATE AMINO TRANSFERASE 61 U/L (10-37); BILIRUBIN,TOTAL 0.4 MG/DL (0.1-1.0); BLOOD UREA NITROGEN 19 MG/DL (7-18); BUN/CREATININE RATIO 30.6 (6.6-38.0); CALCIUM 8.5 MG/DL (8.5-10.1); CHLORIDE 101 MMOL/L (99-107); CREATININE 0.62 MG/DL (0.40-0.90); GLUCOSE 392 MG/DL (70-104); POTASSIUM 4.4 MMOL/L (3.5-5.1); SODIUM 135 MMOL/L (135-145); TOTAL CARBON DIOXIDE 27.5 MMOL/L (24-32); TOTAL PROTEIN 7.5 G/DL (6.4-8.2); eGFR > 90 ML/MIN
[2018-05-06] MEDS ORDERED: cephalexin 500mg capsule PO ONE (11:05)
[2018-05-06] MEDS ORDERED: CEPH500C5 PO (11:10)
[2018-05-06 11:27] VITALS: BP 160/94
== END 2018-05-06 11:30 | disposition home or self-care (01) ==
LOC: ER 09:12
DX: R33.9 Retention of urine, unspecified (principal); N39.0 Urinary tract infection, site not specified; R18.8 Other ascites; E11.9 Type 2 diabetes mellitus without complications; F15.90 Other stimulant use, unspecified, uncomplicated; F11.90 Opioid use, unspecified, uncomplicated; Z88.8 Allergy status to other drugs, medicaments and biological substances; Z79.4 Long term (current) use of insulin; Z79.2 Long term (current) use of antibiotics; Z79.899 Other long term (current) drug therapy; Z56.0 Unemployment, unspecified; Z60.2 Problems related to living alone
CPT/HCPCS: 36415; 51702; 80053; 81001; 85025; 87088; 96372; 99284; A6258; J2270; 87186

== ENCOUNTER 2018-06-03 08:04 | Day surgery (SDC) | payer MEDICAID ==
[~2018-06-03] VITALS: Ht 152.4 cm; Wt 49.8 kg
[~2018-06-03 08:04] MED LIST changes: +CEPH500C5 PO; -HYDR-565 PO; +LIDOcaine 1% 30ml preserv. free vial SQ STA
[2018-06-03] MEDS ORDERED: albumin (human) 25% 100 ML IV solution IV PRN (08:20)
[2018-06-03] MEDS ORDERED: normal saline 1000ml 1,000 ML IV PRN (08:20)
[2018-06-03 08:23] VITALS: BP 148/102
[2018-06-03 08:45] VITALS: BP 158/90
[2018-06-03 08:50] VITALS: BP 152/90
[2018-06-03 09:00] VITALS: BP_SYST 152; BP_SYST 158; BP_SYST 161; BP_DIAS 89; BP_DIAS 90
[2018-06-03 09:15] VITALS: BP_SYST 161; BP_SYST 162; BP_DIAS 89; BP_DIAS 93
== END 2018-06-03 09:23 | disposition home or self-care (01) ==
LOC: SSTAY O 08:04
PROVIDERS: ATTEND Radiology Vascular & Interventional Radiology
DX: K70.31 Alcoholic cirrhosis of liver with ascites (principal); E11.9 Type 2 diabetes mellitus without complications; F17.210 Nicotine dependence, cigarettes, uncomplicated; F41.8 Other specified anxiety disorders; F32.9 Major depressive disorder, single episode, unspecified; F15.21 Other stimulant dependence, in remission; Z98.51 Tubal ligation status; Z90.49 Acquired absence of other specified parts of digestive tract; Z87.440 Personal history of urinary (tract) infections; Z79.891 Long term (current) use of opiate analgesic; Z79.4 Long term (current) use of insulin; Z87.19 Personal history of other diseases of the digestive system; Z87.01 Personal history of pneumonia (recurrent); Z86.19 Personal history of other infectious and parasitic diseases; Z87.11 Personal history of peptic ulcer disease; Z79.899 Other long term (current) drug therapy; Z88.8 Allergy status to other drugs, medicaments and biological substances; Z98.890 Other specified postprocedural states
CPT/HCPCS: 49083; J3490; J7030

== ENCOUNTER 2018-06-13 07:53 | Day surgery (SDC) | payer MEDICAID ==
[~2018-06-13] VITALS: Ht 152.4 cm; Wt 53.4 kg
[~2018-06-13 07:53] MED LIST changes: -CEPH500C5 PO; -LIDOcaine 1% 30ml preserv. free vial SQ STA
[2018-06-13 08:00] VITALS: BP 164/92
[2018-06-13] MEDS ORDERED: normal saline 1000ml 1,000 ML IV PRN (08:25)
[2018-06-13] MEDS ORDERED: albumin (human) 25% 100 ML IV solution IV PRN (08:25)
[2018-06-13 08:50] VITALS: BP 170/86
[2018-06-13] MEDS ORDERED: LIDOcaine 1% 30ml preserv. free vial SQ ONE (09:00)
[2018-06-13 09:05] VITALS: BP 147/83
[2018-06-13 09:20] VITALS: BP 144/66
[2018-06-13 09:25] VITALS: BP 140/88
== END 2018-06-13 09:30 | disposition home or self-care (01) ==
LOC: SSTAY O 07:53
PROVIDERS: ATTEND Radiology Diagnostic Radiology
DX: R18.8 Other ascites (principal); K76.9 Liver disease, unspecified; K74.60 Unspecified cirrhosis of liver; E11.9 Type 2 diabetes mellitus without complications; Z87.11 Personal history of peptic ulcer disease; Z87.01 Personal history of pneumonia (recurrent); Z86.19 Personal history of other infectious and parasitic diseases; Z88.8 Allergy status to other drugs, medicaments and biological substances; Z79.899 Other long term (current) drug therapy
CPT/HCPCS: 49083; J3490; J7030

== ENCOUNTER → 2018-06-24 | Day surgery (SDC) | payer MEDICAID ==
[~2018-06-24] VITALS: Ht 152.4 cm; Wt 58.3 kg
[~2018-06-24] MED LIST changes: +LIDOcaine 1% 30ml preserv. free vial SQ STA; +albumin (human) 25% 100 ML IV solution IV PRN; +normal saline 1000ml 1,000 ML IV PRN
[2018-06-24 08:02] VITALS: BP 153/102
[2018-06-24 08:30] VITALS: BP 153/86
[2018-06-24 08:45] VITALS: BP 151/84
[2018-06-24 09:00] VITALS: BP 156/86
[2018-06-24 09:15] VITALS: BP_SYST 155; BP_SYST 159; BP_DIAS 86; BP_DIAS 91
[2018-06-24 09:30] VITALS: BP 158/88
== END | disposition home or self-care (01) ==
LOC: SSTAY O 07:41
PROVIDERS: ATTEND Radiology Vascular & Interventional Radiology
DX: R18.8 Other ascites (principal); K74.69 Other cirrhosis of liver; E11.9 Type 2 diabetes mellitus without complications; F17.210 Nicotine dependence, cigarettes, uncomplicated; F32.9 Major depressive disorder, single episode, unspecified; F41.8 Other specified anxiety disorders; F15.11 Other stimulant abuse, in remission; F11.11 Opioid abuse, in remission; Z98.51 Tubal ligation status; Z87.01 Personal history of pneumonia (recurrent); Z87.11 Personal history of peptic ulcer disease; Z87.19 Personal history of other diseases of the digestive system; Z86.19 Personal history of other infectious and parasitic diseases; Z79.891 Long term (current) use of opiate analgesic; Z79.4 Long term (current) use of insulin; Z90.49 Acquired absence of other specified parts of digestive tract; Z87.440 Personal history of urinary (tract) infections; Z88.8 Allergy status to other drugs, medicaments and biological substances; Z98.890 Other specified postprocedural states; Z79.899 Other long term (current) drug therapy
CPT/HCPCS: 49083; J3490; J7030

== ENCOUNTER 2018-07-04 16:39 | Emergency (ER) | payer MEDICAID ==
[~2018-07-04 16:39] MED LIST changes: -LIDOcaine 1% 30ml preserv. free vial SQ STA; -albumin (human) 25% 100 ML IV solution IV PRN; -normal saline 1000ml 1,000 ML IV PRN
== END 2018-07-04 17:08 | disposition left against medical advice (07) ==
LOC: ER 16:39
DX: M54.9 Dorsalgia, unspecified (principal); Z53.21 Procedure and treatment not carried out due to patient leaving prior to being seen by health care provider

== ENCOUNTER 2018-07-05 08:27 | Day surgery (SDC) | payer MEDICAID ==
[~2018-07-05] VITALS: Ht 152.4 cm; Wt 58.4 kg
[~2018-07-05 08:27] MED LIST changes: +LIDOcaine 1% 30ml preserv. free vial SQ STA
[2018-07-05 08:45] VITALS: BP 139/102
[2018-07-05] MEDS ORDERED: albumin (human) 25% 100 ML IV solution IV PRN (09:05)
[2018-07-05 09:16] VITALS: BP 132/108
[2018-07-05 09:30] VITALS: BP 163/97
[2018-07-05 09:45] VITALS: BP 136/60
[2018-07-05 09:46] VITALS: BP 146/78
== END 2018-07-05 09:55 | disposition home or self-care (01) ==
LOC: SSTAY O 08:27
PROVIDERS: ATTEND Radiology Diagnostic Radiology
DX: R18.8 Other ascites (principal); K74.69 Other cirrhosis of liver; E11.9 Type 2 diabetes mellitus without complications; F43.10 Post-traumatic stress disorder, unspecified; B18.2 Chronic viral hepatitis C; N28.89 Other specified disorders of kidney and ureter; F17.210 Nicotine dependence, cigarettes, uncomplicated; F19.21 Other psychoactive substance dependence, in remission; F32.9 Major depressive disorder, single episode, unspecified; F41.8 Other specified anxiety disorders; Z79.4 Long term (current) use of insulin; Z79.891 Long term (current) use of opiate analgesic; Z87.01 Personal history of pneumonia (recurrent); Z87.11 Personal history of peptic ulcer disease; Z87.19 Personal history of other diseases of the digestive system; Z90.49 Acquired absence of other specified parts of digestive tract; Z87.440 Personal history of urinary (tract) infections; Z98.51 Tubal ligation status; Z88.8 Allergy status to other drugs, medicaments and biological substances; Z98.890 Other specified postprocedural states; Z79.899 Other long term (current) drug therapy
CPT/HCPCS: 49083; J3490

== ENCOUNTER 2018-07-16 08:23 | Day surgery (SDC) | payer MEDICAID ==
[2018-07-16] VITALS (7 sets, daily range): BP systolic 133–164; BP diastolic 91–102
[~2018-07-16] VITALS: Ht 152.4 cm; Wt 60.8 kg
[~2018-07-16 08:23] MED LIST changes: -LIDOcaine 1% 30ml preserv. free vial SQ STA
[2018-07-16] MEDS ORDERED: LIDOcaine 1% 30ml preserv. free vial SQ ONE (09:00)
[2018-07-16] MEDS ORDERED: albumin (human) 25% 100 ML IV solution IV PRN (09:10)
[2018-07-16] MEDS ORDERED: normal saline 1000ml 1,000 ML IV PRN (09:10)
== END 2018-07-16 10:00 | disposition home or self-care (01) ==
LOC: SSTAY O 08:23
PROVIDERS: ATTEND Radiology Diagnostic Radiology
DX: R18.8 Other ascites (principal); K74.69 Other cirrhosis of liver; K76.89 Other specified diseases of liver; E11.9 Type 2 diabetes mellitus without complications; F17.210 Nicotine dependence, cigarettes, uncomplicated; N19 Unspecified kidney failure; F32.9 Major depressive disorder, single episode, unspecified; F15.21 Other stimulant dependence, in remission; F11.21 Opioid dependence, in remission; Z79.4 Long term (current) use of insulin; F41.8 Other specified anxiety disorders; Z90.49 Acquired absence of other specified parts of digestive tract; Z87.440 Personal history of urinary (tract) infections; Z98.51 Tubal ligation status; Z86.19 Personal history of other infectious and parasitic diseases; Z87.11 Personal history of peptic ulcer disease; Z87.19 Personal history of other diseases of the digestive system; Z87.01 Personal history of pneumonia (recurrent); Z88.8 Allergy status to other drugs, medicaments and biological substances; Z98.890 Other specified postprocedural states; Z79.899 Other long term (current) drug therapy
CPT/HCPCS: 49083; J3490; J7030

== ENCOUNTER 2018-07-26 07:53 | Day surgery (SDC) | payer MEDICAID ==
[2018-07-26] VITALS (9 sets, daily range): BP systolic 134–164; BP diastolic 57–108
[~2018-07-26] VITALS: Ht 152.4 cm; Wt 60.1 kg
[~2018-07-26 07:53] MED LIST changes: +LIDOcaine 1% 30ml preserv. free vial SQ STA
[2018-07-26] MEDS ORDERED: albumin (human) 25% 100 ML IV solution IV PRN (08:15)
[2018-07-26] MEDS ORDERED: normal saline 1000ml 1,000 ML IV PRN (08:15)
== END 2018-07-26 10:11 | disposition home or self-care (01) ==
LOC: SSTAY O 07:53
PROVIDERS: ATTEND Radiology Diagnostic Radiology
DX: R18.8 Other ascites (principal); K74.69 Other cirrhosis of liver; E11.9 Type 2 diabetes mellitus without complications; N19 Unspecified kidney failure; F17.210 Nicotine dependence, cigarettes, uncomplicated; F32.9 Major depressive disorder, single episode, unspecified; F41.8 Other specified anxiety disorders; F15.21 Other stimulant dependence, in remission; Z79.891 Long term (current) use of opiate analgesic; Z90.49 Acquired absence of other specified parts of digestive tract; Z87.440 Personal history of urinary (tract) infections; Z98.51 Tubal ligation status; Z79.4 Long term (current) use of insulin; Z87.01 Personal history of pneumonia (recurrent); Z86.19 Personal history of other infectious and parasitic diseases; Z87.11 Personal history of peptic ulcer disease; Z79.899 Other long term (current) drug therapy; Z88.8 Allergy status to other drugs, medicaments and biological substances; Z98.890 Other specified postprocedural states
CPT/HCPCS: 49083; J3490; J7030

== ENCOUNTER 2018-08-02 08:07 | Day surgery (SDC) | payer MEDICAID ==
[~2018-08-02] VITALS: Ht 152.4 cm; Wt 57.4 kg
[2018-08-02 08:15] VITALS: BP 156/93
[2018-08-02] MEDS ORDERED: MORP30TA PO (08:19)
[2018-08-02 08:25] VITALS: BP 167/91
[2018-08-02] MEDS ORDERED: albumin (human) 25% 100 ML IV solution IV PRN (08:25)
[2018-08-02] MEDS ORDERED: normal saline 1000ml 1,000 ML IV PRN (08:25)
[2018-08-02 08:30] VITALS: BP 148/91
[2018-08-02 08:45] VITALS: BP 139/78
[2018-08-02 09:00] VITALS: BP 147/77
[2018-08-02 09:04] VITALS: BP 140/98
== END 2018-08-02 09:15 | disposition home or self-care (01) ==
LOC: SSTAY O 08:07
PROVIDERS: ATTEND Radiology Vascular & Interventional Radiology
DX: R18.8 Other ascites (principal); K74.69 Other cirrhosis of liver; N19 Unspecified kidney failure; E11.9 Type 2 diabetes mellitus without complications; F32.9 Major depressive disorder, single episode, unspecified; F17.210 Nicotine dependence, cigarettes, uncomplicated; F41.8 Other specified anxiety disorders; F19.11 Other psychoactive substance abuse, in remission; Z87.39 Personal history of other diseases of the musculoskeletal system and connective tissue; Z87.01 Personal history of pneumonia (recurrent); Z79.1 Long term (current) use of non-steroidal anti-inflammatories (NSAID); Z87.11 Personal history of peptic ulcer disease; Z86.19 Personal history of other infectious and parasitic diseases; Z90.49 Acquired absence of other specified parts of digestive tract; Z87.440 Personal history of urinary (tract) infections; Z79.891 Long term (current) use of opiate analgesic; Z79.4 Long term (current) use of insulin; Z98.51 Tubal ligation status; Z98.890 Other specified postprocedural states; Z88.8 Allergy status to other drugs, medicaments and biological substances; Z79.899 Other long term (current) drug therapy
CPT/HCPCS: 49083; J3490; J7030

== ENCOUNTER 2018-08-13 13:53 | Emergency (ER) | payer MEDICAID ==
[~2018-08-13] VITALS: Ht 152.4 cm; Wt 59.1 kg
[~2018-08-13 13:53] MED LIST changes: -LIDOcaine 1% 30ml preserv. free vial SQ STA; +MORP30TA PO
[2018-08-13 14:31] LABS: BASOPHILS % (AUTO) 0.1 % (0-1); EOSINOPHILS # (AUTO) 0.1 X10'3 (0-0.9); EOSINOPHILS % (AUTO) 1.1 % (0-6); HEMATOCRIT 39.2 % (35.0-45.0); HEMOGLOBIN 12.3 g/dl (12.0-16.0); LYMPHOCYTES # (AUTO) 1.2 X10'3 (1.1-4.8); LYMPHOCYTES % (AUTO) 15.3 % (21-51); MEAN CORPUSCULAR HEMOGLOBIN 23.3 PG (27.0-31.0); MEAN CORPUSCULAR HGB CONC 31.4 % (33.0-36.5); MEAN CORPUSCULAR VOLUME 74.3 FL (78-98); MEAN PLATELET VOLUME 6.8 FL (7.4-10.4); MONOCYTES # (AUTO) 0.2 X10'3 (0-0.9); MONOCYTES % (AUTO) 2.9 % (2-12); NEUTROPHILS # (AUTO) 6.4 X10'3 (1.8-7.7); NEUTROPHILS % (AUTO) 80.6 % (42-75); PLATELET COUNT 296 X10'3 (140-440); RED BLOOD COUNT 5.27 X10'6 (4.20-5.60); RED CELL DISTRIBUTION WIDTH 17.2 % (11.5-14.5); WHITE BLOOD COUNT 7.9 X10'3 (4.5-11.0)
[2018-08-13 14:50] LABS: ALANINE AMINOTRANSFERASE 30 U/L (12-78); ALBUMIN/GLOBULIN RATIO 0.4 (1.1-1.5); ALKALINE PHOSPHATASE 277 IU/L (46-116); ANION GAP 7 (8-16); ASPARTATE AMINO TRANSFERASE 40 U/L (10-37); BILIRUBIN,TOTAL 0.3 MG/DL (0.1-1.0); BLOOD UREA NITROGEN 19 MG/DL (7-18); CALCIUM 8.1 MG/DL (8.5-10.1); CHLORIDE 104 MMOL/L (99-107); CREATININE 0.76 MG/DL (0.40-0.90); GLUCOSE 198 MG/DL (70-104); LIPASE 119 U/L (73-393); POTASSIUM 3.4 MMOL/L (3.5-5.1); SODIUM 140 MMOL/L (135-145); TOTAL CARBON DIOXIDE 28.7 MMOL/L (24-32); TOTAL PROTEIN 7.3 G/DL (6.4-8.2); eGFR 78 ML/MIN
[2018-08-13] MEDS ORDERED: LIDOcaine 1.5% w/epinephrine 1:200,000 5ml ampul IJ ONE (15:05)
[2018-08-13] MEDS ORDERED: LIDOcaine 1% w/epiNEPHrine 1:200,000 30ml vial IJ ONE (15:10)
[2018-08-13 16:11] LABS: PROTHROMBIN TIME 10.4 SECONDS (9.0-12.0)
--- NOTE | 2018-08-13 16:19 | NUR ---
PT HAS DRAINED 5.5L FROM ABDOMENT, DR LEON NOTIFIED. ORDERED ADDITION 2L TO BE DRAINED Addendum: 08/13/18 at 1632 by MEL ADDITIONAL 2L DRAINED FROM ABDOMEN. TAP CATHETER REMOVED AND SITE DRESSED WITH 4X4 AND OPSITE APPLIED TO SITE
[2018-08-13 17:03] VITALS: BP 114/105
== END 2018-08-13 17:08 | disposition home or self-care (01) ==
LOC: ER 13:54
DX: R18.8 Other ascites (principal); R64 Cachexia; E11.9 Type 2 diabetes mellitus without complications; F15.90 Other stimulant use, unspecified, uncomplicated; F11.90 Opioid use, unspecified, uncomplicated; Z87.19 Personal history of other diseases of the digestive system; Z88.8 Allergy status to other drugs, medicaments and biological substances; Z56.0 Unemployment, unspecified; Z60.2 Problems related to living alone; Z87.11 Personal history of peptic ulcer disease
CPT/HCPCS: 36415; 49083; 80053; 83690; 85025; 85610; 99285; J3490

== ENCOUNTER 2018-08-16 08:57 | Day surgery (SDC) | payer MEDICAID ==
[~2018-08-16] VITALS: Ht 152.4 cm; Wt 52.8 kg
[2018-08-16] VITALS (7 sets, daily range): BP systolic 120–137; BP diastolic 62–82
[~2018-08-16 08:57] MED LIST changes: +LIDOcaine 1% 30ml preserv. free vial SQ STA
[2018-08-16] MEDS ORDERED: albumin 25% 50mL bottle X 2 BOTTLES IV ONE (09:15)
== END 2018-08-16 10:45 | disposition home or self-care (01) ==
LOC: SSTAY O 08:57
PROVIDERS: ATTEND Radiology Vascular & Interventional Radiology
DX: R18.8 Other ascites (principal); K72.90 Hepatic failure, unspecified without coma; K74.60 Unspecified cirrhosis of liver; F17.210 Nicotine dependence, cigarettes, uncomplicated; E11.9 Type 2 diabetes mellitus without complications; F10.21 Alcohol dependence, in remission; F32.9 Major depressive disorder, single episode, unspecified; F41.8 Other specified anxiety disorders; F19.11 Other psychoactive substance abuse, in remission; N19 Unspecified kidney failure; Z87.01 Personal history of pneumonia (recurrent); Z98.51 Tubal ligation status; Z87.11 Personal history of peptic ulcer disease; Z86.19 Personal history of other infectious and parasitic diseases; Z90.49 Acquired absence of other specified parts of digestive tract; Z87.440 Personal history of urinary (tract) infections; Z79.891 Long term (current) use of opiate analgesic; Z79.4 Long term (current) use of insulin; Z79.899 Other long term (current) drug therapy; Z88.8 Allergy status to other drugs, medicaments and biological substances; Z98.890 Other specified postprocedural states
CPT/HCPCS: 49083; J3490

== ENCOUNTER 2018-09-07 08:04 | Emergency (ER) | payer MEDICAID ==
[~2018-09-07] VITALS: Ht 152.4 cm; Wt 47.0 kg
[~2018-09-07 08:04] MED LIST changes: -LIDOcaine 1% 30ml preserv. free vial SQ STA
[2018-09-07] MEDS ORDERED: LIDOcaine 1% w/epiNEPHrine 1:200,000 30ml vial IM ONE (09:00)
[2018-09-07] MEDS ORDERED: povidone-iodine 120ml topical solution TP ONE (09:00)
--- NOTE | 2018-09-07 10:00 | NUR ---
PARA SET UP,GEORGINA MADE AWARE.
[2018-09-07 10:02] LABS: ALANINE AMINOTRANSFERASE 220 U/L (12-78); ALBUMIN 1.6 G/DL (3.4-5.0); ALBUMIN/GLOBULIN RATIO 0.3 (1.1-1.5); ALKALINE PHOSPHATASE 394 IU/L (46-116); ANION GAP 7 (8-16); ASPARTATE AMINO TRANSFERASE 120 U/L (10-37); BILIRUBIN,TOTAL 0.7 MG/DL (0.1-1.0); BLOOD UREA NITROGEN 21 MG/DL (7-18); BUN/CREATININE RATIO 31.8 (6.6-38.0); CALCIUM 7.8 MG/DL (8.5-10.1); CHLORIDE 99 MMOL/L (99-107); CREATININE 0.66 MG/DL (0.40-0.90); GLUCOSE 360 MG/DL (70-104); POTASSIUM 4.2 MMOL/L (3.5-5.1); SODIUM 130 MMOL/L (135-145); TOTAL CARBON DIOXIDE 24.2 MMOL/L (24-32); TOTAL PROTEIN 6.6 G/DL (6.4-8.2); eGFR > 90 ML/MIN
[2018-09-07 10:03] LABS: INR 1.2 INR; PARTIAL THROMBOPLASTIN TIME 27 SECONDS (22-32); PROTHROMBIN TIME 11.7 SECONDS (9.0-12.0)
[2018-09-07 10:05] LABS: BASOPHILS % (AUTO) 0.3 % (0-1); EOSINOPHILS # (AUTO) 0.1 X10'3 (0-0.9); EOSINOPHILS % (AUTO) 1.2 % (0-6); HEMATOCRIT 29.9 % (35.0-45.0); HEMOGLOBIN 9.8 g/dl (12.0-16.0); LYMPHOCYTES # (AUTO) 0.9 X10'3 (1.1-4.8); LYMPHOCYTES % (AUTO) 11.2 % (21-51); MEAN CORPUSCULAR HEMOGLOBIN 24.2 PG (27.0-31.0); MEAN CORPUSCULAR HGB CONC 32.8 g/dL (33.0-36.5); MEAN CORPUSCULAR VOLUME 73.9 FL (78-98); MEAN PLATELET VOLUME 7.1 FL (7.4-10.4); MONOCYTES # (AUTO) 0.4 X10'3 (0-0.9); MONOCYTES % (AUTO) 4.5 % (2-12); NEUTROPHILS # (AUTO) 6.5 X10'3 (1.8-7.7); NEUTROPHILS % (AUTO) 82.8 % (42-75); PLATELET COUNT 93 X10'3 (140-440); RED BLOOD COUNT 4.04 X10'6 (4.20-5.60); WHITE BLOOD COUNT 7.8 X10'3 (4.5-11.0)
--- NOTE | 2018-09-07 10:21 | NUR ---
dr. echeverria and aline thompson at bedside.
[2018-09-07 10:52] LABS: ANISOCYTOSIS 2+; HYPOCHROMASIA 1+; MICROCYTOSIS 1+; PLATELET ESTIMATE DECREASED; POLYCHROMASIA 1+
[2018-09-07 10:53] LABS: ROULEAUX 1+
--- NOTE | 2018-09-07 11:00 | NUR ---
5,100 PERITONIAL FLUID OUT.
--- NOTE | 2018-09-07 11:14 | NUR ---
PERITONIAL CATHETER OUT, DRESSING PLACED,PRESSURE APPLIED.
[2018-09-07 11:43] VITALS: BP 136/77
== END 2018-09-07 12:52 | disposition home or self-care (01) ==
LOC: ER 08:04
DX: R18.8 Other ascites (principal); K74.60 Unspecified cirrhosis of liver; M25.551 Pain in right hip; E11.9 Type 2 diabetes mellitus without complications; F15.10 Other stimulant abuse, uncomplicated; F11.10 Opioid abuse, uncomplicated; Z56.0 Unemployment, unspecified; Z88.8 Allergy status to other drugs, medicaments and biological substances; Z79.4 Long term (current) use of insulin
CPT/HCPCS: 36415; 49083; 73502; 80053; 85025; 85610; 85730; 99285; J3490

== ENCOUNTER 2018-09-11 08:32 | Day surgery (SDC) | payer MEDICAID ==
[~2018-09-11] VITALS: Ht 152.4 cm; Wt 46.6 kg
[2018-09-11 08:50] VITALS: BP 139/81
[2018-09-11] MEDS ORDERED: albumin 25% 50mL bottle X 2 BOTTLES IV ONE (09:10)
[2018-09-11 09:15] VITALS: BP 130/78
[2018-09-11 09:20] VITALS: BP 129/70
[2018-09-11 09:30] VITALS: BP 129/72
[2018-09-11 09:45] VITALS: BP 138/79
[2018-09-11 09:56] VITALS: BP 134/77
== END 2018-09-11 10:00 | disposition home or self-care (01) ==
LOC: SSTAY O 08:32
PROVIDERS: ATTEND Radiology Diagnostic Radiology
DX: R18.8 Other ascites (principal); K74.60 Unspecified cirrhosis of liver; E11.9 Type 2 diabetes mellitus without complications; F17.210 Nicotine dependence, cigarettes, uncomplicated; F41.8 Other specified anxiety disorders; F32.9 Major depressive disorder, single episode, unspecified; F15.11 Other stimulant abuse, in remission; F11.11 Opioid abuse, in remission; F10.21 Alcohol dependence, in remission; Z98.51 Tubal ligation status; Z87.448 Personal history of other diseases of urinary system; Z90.49 Acquired absence of other specified parts of digestive tract; Z87.440 Personal history of urinary (tract) infections; Z87.39 Personal history of other diseases of the musculoskeletal system and connective tissue; Z87.2 Personal history of diseases of the skin and subcutaneous tissue; Z87.19 Personal history of other diseases of the digestive system; Z87.01 Personal history of pneumonia (recurrent); Z86.19 Personal history of other infectious and parasitic diseases; Z87.11 Personal history of peptic ulcer disease; Z79.891 Long term (current) use of opiate analgesic; Z79.4 Long term (current) use of insulin; Z95.5 Presence of coronary angioplasty implant and graft; Z88.8 Allergy status to other drugs, medicaments and biological substances; Z79.899 Other long term (current) drug therapy; Z98.890 Other specified postprocedural states
CPT/HCPCS: 49083; C1729

== ENCOUNTER 2018-09-20 09:27 | Emergency (ER) | payer MEDICAID ==
[~2018-09-20] VITALS: Ht 152.4 cm; Wt 53.0 kg
[2018-09-20 09:45] VITALS: BP 127/88
--- NOTE | 2018-09-20 11:15 | NUR ---
NOTIFIED BY SHORT STAY THAT THEY WILL BEING TAKING PT AND PERFORMING PERICENTESIS AND DISCHARGING FROM SHORT STAY, PT DISCHARGE FROM ED, PT WAS STILL IN ED LOBBY AT THIS TIME.
== END 2018-09-20 11:17 | disposition left against medical advice (07) ==
LOC: ER 09:27
DX: R10.9 Unspecified abdominal pain (principal); Z53.21 Procedure and treatment not carried out due to patient leaving prior to being seen by health care provider

== ENCOUNTER 2018-09-20 11:28 | Day surgery (SDC) | payer MEDICAID ==
[2018-09-20] VITALS (8 sets, daily range): BP systolic 120–147; BP diastolic 69–90
[~2018-09-20] VITALS: Ht 152.4 cm; Wt 54.3 kg
[2018-09-20] MEDS ORDERED: LIDOcaine 1% 30ml preserv. free vial IJ STA (11:51)
[2018-09-20] MEDS: albumin 25% 50mL bottle 100 ML IV PRN ×4 (13:25→13:59)
== END 2018-09-20 14:15 | disposition home or self-care (01) ==
LOC: SSTAY O 11:28
PROVIDERS: ATTEND Radiology Diagnostic Radiology
DX: R18.8 Other ascites (principal); K74.60 Unspecified cirrhosis of liver; E11.9 Type 2 diabetes mellitus without complications; Z87.01 Personal history of pneumonia (recurrent); Z79.4 Long term (current) use of insulin; Z87.11 Personal history of peptic ulcer disease; F11.90 Opioid use, unspecified, uncomplicated; F15.90 Other stimulant use, unspecified, uncomplicated; Z88.8 Allergy status to other drugs, medicaments and biological substances; Z79.899 Other long term (current) drug therapy; Z86.19 Personal history of other infectious and parasitic diseases
CPT/HCPCS: 49083; C1729; J3490; P9047

== ENCOUNTER 2018-09-25 08:15 | Day surgery (SDC) | payer MEDICAID ==
[2018-09-25] VITALS (8 sets, daily range): BP systolic 112–129; BP diastolic 71–82
[~2018-09-25] VITALS: Ht 152.4 cm; Wt 54.8 kg
[2018-09-25] MEDS ORDERED: normal saline 1000ml 1,000 ML IV PRN (08:40)
[2018-09-25] MEDS ORDERED: albumin 25% 50mL bottle X 2 BOTTLES IV ONE (08:40)
[2018-09-25] MEDS ORDERED: LIDOcaine 1% 30ml preserv. free vial SQ ONE (09:00)
[2018-09-25] MEDS ORDERED: albumin (human) 25% 100 ML IV solution IV ONE (09:55)
== END 2018-09-25 11:10 | disposition home or self-care (01) ==
LOC: SSTAY O 08:15
PROVIDERS: ATTEND Radiology Vascular & Interventional Radiology
DX: R18.8 Other ascites (principal); K74.60 Unspecified cirrhosis of liver; E11.9 Type 2 diabetes mellitus without complications; Z98.890 Other specified postprocedural states; Z87.11 Personal history of peptic ulcer disease; Z87.01 Personal history of pneumonia (recurrent); Z86.19 Personal history of other infectious and parasitic diseases; F11.90 Opioid use, unspecified, uncomplicated; F15.90 Other stimulant use, unspecified, uncomplicated; Z79.899 Other long term (current) drug therapy
CPT/HCPCS: 49083; C1729; J3490; J7030; P9047

== ENCOUNTER 2018-10-04 08:13 | Day surgery (SDC) | payer MEDICAID ==
[2018-10-04] VITALS (10 sets, daily range): BP systolic 111–142; BP diastolic 66–95
[~2018-10-04] VITALS: Ht 152.4 cm; Wt 56.7 kg
[2018-10-04] MEDS ORDERED: LIDOcaine 1% 30ml preserv. free vial SQ ONE (08:30)
[2018-10-04] MEDS ORDERED: POTA10TA36 PO (08:33)
[2018-10-04] MEDS ORDERED: normal saline 1000ml 1,000 ML IV PRN (08:35)
[2018-10-04] MEDS ORDERED: albumin 25% 50mL bottle X 2 BOTTLES IV ONE (08:35)
[2018-10-04] MEDS: albumin (human) 25% 100 ML IV solution IV PRN ×2 (09:08→10:01)
== END 2018-10-04 10:58 | disposition home or self-care (01) ==
LOC: SSTAY O 08:13
PROVIDERS: ATTEND Radiology Diagnostic Radiology
DX: R18.8 Other ascites (principal); K74.60 Unspecified cirrhosis of liver; Z88.8 Allergy status to other drugs, medicaments and biological substances; Z87.01 Personal history of pneumonia (recurrent)
CPT/HCPCS: 49083; C1729; J3490; J7030; P9047

== ENCOUNTER 2018-10-14 08:47 | Day surgery (SDC) | payer MEDICAID ==
[~2018-10-14] VITALS: Ht 152.4 cm; Wt 51.6 kg
[2018-10-14] VITALS (8 sets, daily range): BP systolic 130–162; BP diastolic 71–99
[~2018-10-14 08:47] MED LIST changes: +LIDOcaine 1% 30ml preserv. free vial SQ STA; +POTA10TA36 PO
[2018-10-14] MEDS ORDERED: albumin 25% 50mL bottle X 2 BOTTLES IV ONE ×2 (09:10→10:30)
== END 2018-10-14 11:00 | disposition home or self-care (01) ==
LOC: SSTAY O 08:47
PROVIDERS: ATTEND Radiology Diagnostic Radiology
DX: K74.69 Other cirrhosis of liver (principal); R18.8 Other ascites; Z88.8 Allergy status to other drugs, medicaments and biological substances
CPT/HCPCS: 49083; J3490; P9047

== ENCOUNTER 2018-10-22 08:57 | Day surgery (SDC) | payer MEDICAID ==
[2018-10-22] VITALS (9 sets, daily range): BP systolic 101–144; BP diastolic 63–87
[~2018-10-22] VITALS: Ht 152.4 cm; Wt 53.8 kg
[2018-10-22] MEDS ORDERED: albumin (human) 25% 100 ML IV solution IV ONE ×2 (09:20→10:45)
== END 2018-10-22 11:45 | disposition home or self-care (01) ==
LOC: SSTAY O 08:57
PROVIDERS: ATTEND Radiology Vascular & Interventional Radiology
DX: R18.8 Other ascites (principal); K74.60 Unspecified cirrhosis of liver; E11.9 Type 2 diabetes mellitus without complications; Z87.01 Personal history of pneumonia (recurrent); Z86.19 Personal history of other infectious and parasitic diseases; F15.90 Other stimulant use, unspecified, uncomplicated; F14.90 Cocaine use, unspecified, uncomplicated; Z79.4 Long term (current) use of insulin; Z79.899 Other long term (current) drug therapy; Z87.11 Personal history of peptic ulcer disease
CPT/HCPCS: 49083; C1729; J3490; P9047

== ENCOUNTER 2018-10-29 08:25 | Day surgery (SDC) | payer MEDICAID ==
[~2018-10-29] VITALS: Ht 152.4 cm; Wt 52.9 kg
[2018-10-29] VITALS (9 sets, daily range): BP systolic 126–147; BP diastolic 67–84
[2018-10-29] MEDS ORDERED: normal saline 1000ml 1,000 ML IV PRN (08:45)
[2018-10-29] MEDS ORDERED: albumin 25% 100mL bottle x 1 IV ONE (08:45)
== END 2018-10-29 10:45 | disposition home or self-care (01) ==
LOC: SSTAY O 08:25
PROVIDERS: ATTEND Radiology Diagnostic Radiology
DX: R18.8 Other ascites (principal); K74.60 Unspecified cirrhosis of liver; E11.9 Type 2 diabetes mellitus without complications; Z87.01 Personal history of pneumonia (recurrent); Z86.19 Personal history of other infectious and parasitic diseases; Z87.11 Personal history of peptic ulcer disease; F15.90 Other stimulant use, unspecified, uncomplicated; F11.90 Opioid use, unspecified, uncomplicated; Z79.899 Other long term (current) drug therapy
CPT/HCPCS: 49083; J3490; J7030; P9047

== ENCOUNTER 2018-11-04 08:47 | Day surgery (SDC) | payer MEDICAID ==
[~2018-11-04] VITALS: Ht 152.4 cm; Wt 53.6 kg
[~2018-11-04 08:47] MED LIST changes: -LIDOcaine 1% 30ml preserv. free vial SQ STA
[2018-11-04 08:55] VITALS: BP 146/118
[2018-11-04] MEDS ORDERED: INSU100V9 SQ (09:03)
[2018-11-04] MEDS ORDERED: RIFA550T PO (09:03)
[2018-11-04] MEDS ORDERED: GABA-532 PO (09:04)
[2018-11-04] MEDS ORDERED: fentaNYL/PF 50MCG/1 ML 2ML syringe ONE (09:28)
[2018-11-04] MEDS ORDERED: MIDAZolam 5mg/5ml vial ONE (09:29)
[2018-11-04] MEDS ORDERED: LIDOcaine Viscous 15ml cup ONE (09:29)
[2018-11-04 10:15] VITALS: BP 112/62
[2018-11-04 10:25] VITALS: BP 105/61
[2018-11-04 10:35] VITALS: BP 101/67
[2018-11-04 10:45] VITALS: BP 109/68
== END 2018-11-04 11:10 | disposition home or self-care (01) ==
LOC: GI LAB 08:47
PROVIDERS: ATTEND Internal Medicine Gastroenterology
DX: I85.00 Esophageal varices without bleeding (principal); K76.6 Portal hypertension; K31.89 Other diseases of stomach and duodenum
CPT/HCPCS: 43235; 99152; J2250; J3010; J7030; A4620

== ENCOUNTER 2018-11-06 08:16 | Day surgery (SDC) | payer MEDICAID ==
[~2018-11-06] VITALS: Ht 152.4 cm; Wt 56.1 kg
[~2018-11-06 08:16] MED LIST changes: +INSU100V9 SQ; +LIDOcaine 1% 30ml preserv. free vial SQ STA; +RIFA550T PO
[2018-11-06 08:38] VITALS: BP 146/98
[2018-11-06 08:45] VITALS: BP 145/90
[2018-11-06 09:00] VITALS: BP 170/89
[2018-11-06] MEDS ORDERED: albumin 25% 100mL bottle x 1 IV ONE (09:10)
[2018-11-06] MEDS ORDERED: normal saline 1000ml 1,000 ML IV PRN (09:10)
[2018-11-06 09:15] VITALS: BP 131/75
== END 2018-11-06 09:30 | disposition home or self-care (01) ==
LOC: SSTAY O 08:16
PROVIDERS: ATTEND Radiology Diagnostic Radiology
DX: R18.8 Other ascites (principal); K74.60 Unspecified cirrhosis of liver; E11.9 Type 2 diabetes mellitus without complications; Z87.01 Personal history of pneumonia (recurrent); F15.90 Other stimulant use, unspecified, uncomplicated; F14.90 Cocaine use, unspecified, uncomplicated; Z79.899 Other long term (current) drug therapy; Z79.4 Long term (current) use of insulin; Z88.8 Allergy status to other drugs, medicaments and biological substances; Z86.19 Personal history of other infectious and parasitic diseases
CPT/HCPCS: 49083; C1729; J3490; J7030

== ENCOUNTER 2018-11-12 10:00 | Outpatient (CLI) | payer MEDICAID ==
[~2018-11-12 10:00] MED LIST changes: -LIDOcaine 1% 30ml preserv. free vial SQ STA
[2018-11-12] MEDS ORDERED: silver sulfadiazine cream 50gm TP ONE (11:01)
--- NOTE | 2018-11-12 11:30 | NUR ---
Patient ambulated independently from [facility] accompanied by her daughter and was admitted to outpatient wound care for physician visit with Leonel Grant MD. Dressing removed, wound cleansed. Patient assessed for changes in conditions, medications and medical history. 1054 - Dr. Grant at bedside accompanied by RN. Wound assessed by MD, orders written. Plan of care discussed with patient. Dressings placed per MD orders. Patient instructed on the signs and symptoms of infection and to call the Wound Center if any occur or to go to the ED if we are closed: Increased pain in wound Increase in drainage from the wound Redness in the skin surrounding the wound Bleeding from the wound Temperature of 101 or greater Patient instructed that the weight of their body puts a large amount of pressure on their wounds. This pressure keeps the new tissue from growing and inhibits new blood vessels from forming. Explained that, if they continue to bear weight on a body part that has a wound, the time it takes to heal the wound increases, the wound may get worse or the wound may not heal at all. Patient verbalized understanding of all discharge instructions and plan of care and ambulated independently out to [facility] in stable condition with no sign or symptom of distress at time of discharge.
== END 2018-11-12 11:12 | disposition home or self-care (01) ==
LOC: WOUND CARE 10:00
PROVIDERS: ATTEND Surgery
DX: E11.622 Type 2 diabetes mellitus with other skin ulcer (principal); L98.491 Non-pressure chronic ulcer of skin of other sites limited to breakdown of skin; K74.60 Unspecified cirrhosis of liver; F11.90 Opioid use, unspecified, uncomplicated; F15.10 Other stimulant abuse, uncomplicated; Z86.19 Personal history of other infectious and parasitic diseases; Z87.891 Personal history of nicotine dependence; Z79.4 Long term (current) use of insulin; Z79.899 Other long term (current) drug therapy
CPT/HCPCS: A6223; G0463; A6446

== ENCOUNTER 2018-11-19 10:05 | Outpatient (CLI) | payer MEDICAID ==
--- NOTE | 2018-11-19 12:30 | NUR ---
Patient arrived via wheelchair from [facility] and was admitted to outpatient wound care for physician visit with Leonel Grant MD. Dressing removed, wound cleansed. Patient assessed for changes in conditions, medications and medical history. 1054 - blood glucose 211. Patient instructed that elevated blood sugars delay healing of the wound and can cause further complications including but not limited to amputation of toes or feet. 1202 - Dr. Grant at bedside accompanied by RN. Wound assessed by MD, orders written. Plan of care discussed with patient. Dressings placed per MD orders. Patient is discharged from the outpatient wound clinic to follow up on an as needed basis. Patient instructed on the signs and symptoms of infection and to call the Wound Center if any occur or to go to the ED if we are closed: Increased pain in wound Increase in drainage from the wound Redness in the skin surrounding the wound Bleeding from the wound Temperature of 101 or greater Patient instructed that the weight of their body puts a large amount of pressure on their wounds. This pressure keeps the new tissue from growing and inhibits new blood vessels from forming. Explained that, if they continue to bear weight on a body part that has a wound, the time it takes to heal the wound increases, the wound may get worse or the wound may not heal at all. Patient verbalized understanding of all discharge instructions and plan of care and is driven up to bench at hospital entrance where she will wait for her ride via wheelchair by RN in stable condition with no sign or symptom of distress at time of discharge.
== END 2018-11-19 12:10 | disposition home or self-care (01) ==
LOC: WOUND CARE 10:05
PROVIDERS: ATTEND Surgery
DX: E11.622 Type 2 diabetes mellitus with other skin ulcer (principal); L98.491 Non-pressure chronic ulcer of skin of other sites limited to breakdown of skin; E11.65 Type 2 diabetes mellitus with hyperglycemia; K74.60 Unspecified cirrhosis of liver; F11.90 Opioid use, unspecified, uncomplicated; F15.10 Other stimulant abuse, uncomplicated; Z86.19 Personal history of other infectious and parasitic diseases; Z87.891 Personal history of nicotine dependence; Z79.4 Long term (current) use of insulin; Z79.899 Other long term (current) drug therapy
CPT/HCPCS: 82948; A6223; G0463; A6021; A6446

== ENCOUNTER 2018-11-20 07:55 | Day surgery (SDC) | payer MEDICAID ==
[2018-11-20] VITALS (7 sets, daily range): BP systolic 109–142; BP diastolic 76–89
[~2018-11-20] VITALS: Ht 152.4 cm; Wt 52.7 kg
[~2018-11-20 07:55] MED LIST changes: +LIDOcaine 1% 30ml preserv. free vial SQ STA
[2018-11-20] MEDS ORDERED: normal saline 1000ml 1,000 ML IV PRN (08:15)
[2018-11-20] MEDS ORDERED: albumin 25% 100mL bottle x 1 IV PRN (08:15)
== END 2018-11-20 10:25 | disposition home or self-care (01) ==
LOC: SSTAY O 07:55
PROVIDERS: ATTEND Radiology Diagnostic Radiology
DX: R18.8 Other ascites (principal); K74.60 Unspecified cirrhosis of liver; E11.9 Type 2 diabetes mellitus without complications; Z87.01 Personal history of pneumonia (recurrent); Z87.11 Personal history of peptic ulcer disease; Z86.19 Personal history of other infectious and parasitic diseases; F15.90 Other stimulant use, unspecified, uncomplicated; F12.90 Cannabis use, unspecified, uncomplicated; Z79.4 Long term (current) use of insulin; Z79.899 Other long term (current) drug therapy
CPT/HCPCS: 49083; C1729; J3490; J7030; P9047

== ENCOUNTER 2018-11-28 07:57 | Day surgery (SDC) | payer MEDICAID ==
[2018-11-28] VITALS (9 sets, daily range): BP systolic 120–144; BP diastolic 68–95
[~2018-11-28] VITALS: Ht 152.4 cm; Wt 51.0 kg
[~2018-11-28 07:57] MED LIST changes: -LIDOcaine 1% 30ml preserv. free vial SQ STA
[2018-11-28] MEDS ORDERED: albumin 25% 100mL bottle x 1 IV PRN (08:20)
[2018-11-28] MEDS ORDERED: normal saline 1000ml 1,000 ML IV SCH (08:20)
[2018-11-28] MEDS ORDERED: LIDOcaine 1% 30ml preserv. free vial SQ ONE (09:00)
== END 2018-11-28 10:10 | disposition home or self-care (01) ==
LOC: SSTAY O 07:57
PROVIDERS: ATTEND Radiology Vascular & Interventional Radiology
DX: R18.8 Other ascites (principal); K74.60 Unspecified cirrhosis of liver; E11.9 Type 2 diabetes mellitus without complications; Z87.11 Personal history of peptic ulcer disease; Z86.19 Personal history of other infectious and parasitic diseases; Z87.01 Personal history of pneumonia (recurrent); F15.90 Other stimulant use, unspecified, uncomplicated; F12.90 Cannabis use, unspecified, uncomplicated; Z79.899 Other long term (current) drug therapy; Z79.4 Long term (current) use of insulin
CPT/HCPCS: 49083; C1729; J3490; P9047; J7030

== ENCOUNTER 2018-12-09 08:08 | Day surgery (SDC) | payer MEDICAID ==
[~2018-12-09] VITALS: Ht 152.4 cm; Wt 52.2 kg
[~2018-12-09 08:08] MED LIST changes: +LIDOcaine 1% 30ml preserv. free vial SQ STA
[2018-12-09 08:21] VITALS: BP 149/90
[2018-12-09] MEDS ORDERED: albumin 25% 100mL bottle x 1 IV PRN (08:25)
[2018-12-09 09:09] VITALS: BP 147/71
[2018-12-09 09:24] VITALS: BP 121/77
[2018-12-09 10:00] VITALS: BP 132/77
[2018-12-09 10:15] VITALS: BP 130/79
== END 2018-12-09 10:25 | disposition home or self-care (01) ==
LOC: SSTAY O 08:08
PROVIDERS: ATTEND Radiology Vascular & Interventional Radiology
DX: R18.8 Other ascites (principal); K74.60 Unspecified cirrhosis of liver
CPT/HCPCS: 49083; C1729; J3490; P9047

== ENCOUNTER 2018-12-18 08:09 | Day surgery (SDC) | payer MEDICAID ==
[2018-12-18] VITALS (8 sets, daily range): BP systolic 118–156; BP diastolic 58–91
[~2018-12-18] VITALS: Ht 152.4 cm; Wt 55.1 kg
[2018-12-18] MEDS ORDERED: normal saline 1000ml 1,000 ML IV PRN (08:35)
[2018-12-18] MEDS ORDERED: albumin 25% 100mL bottle x 1 IV PRN (08:35)
== END 2018-12-18 10:40 | disposition home or self-care (01) ==
LOC: SSTAY O 08:09
PROVIDERS: ATTEND Radiology Vascular & Interventional Radiology
DX: R18.8 Other ascites (principal); K74.60 Unspecified cirrhosis of liver; E11.9 Type 2 diabetes mellitus without complications; Z87.01 Personal history of pneumonia (recurrent); Z87.11 Personal history of peptic ulcer disease; Z86.19 Personal history of other infectious and parasitic diseases; Z88.8 Allergy status to other drugs, medicaments and biological substances; F15.90 Other stimulant use, unspecified, uncomplicated; F12.90 Cannabis use, unspecified, uncomplicated; Z79.899 Other long term (current) drug therapy; Z79.4 Long term (current) use of insulin
CPT/HCPCS: 49083; C1729; J7030; P9047

== ENCOUNTER 2018-12-26 08:10 | Day surgery (SDC) | payer MEDICAID ==
[~2018-12-26] VITALS: Ht 152.4 cm; Wt 58.0 kg
[2018-12-26] VITALS (7 sets, daily range): BP systolic 80–154; BP diastolic 51–86
[~2018-12-26 08:10] MED LIST changes: +LIDOcaine Viscous 15ml cup ONE; +MIDAZolam 5mg/5ml vial ONE; +fentaNYL/PF 50MCG/1 ML 2ML syringe ONE; +glucagon, human recombinant 1mg kit ONE; +iohexol 300 MG/1 ML 50ml polymer ONE; +levoFLOXACIN-Levaquin 500mg/D5 100 ML IV ONE
[2018-12-26] MEDS ORDERED: normal saline 1000ml 1,000 ML IV PRN (08:30)
[2018-12-26] MEDS: albumin 25% 100mL bottle x 1 IV PRN ×2 (09:24→09:56)
== END 2018-12-26 10:30 | disposition home or self-care (01) ==
LOC: SSTAY O 08:10
PROVIDERS: ATTEND Radiology Vascular & Interventional Radiology
DX: R18.8 Other ascites (principal); K74.60 Unspecified cirrhosis of liver
CPT/HCPCS: 49083; C1729; J1610; J1956; J2250; J3010; J7030; P9047; Q9967

== ENCOUNTER 2019-01-02 08:44 | Day surgery (SDC) | payer MEDICAID ==
[2019-01-02] VITALS (10 sets, daily range): BP systolic 116–136; BP diastolic 64–99
[~2019-01-02] VITALS: Ht 152.4 cm; Wt 55.0 kg
[~2019-01-02 08:44] MED LIST changes: -LIDOcaine 1% 30ml preserv. free vial SQ STA; -LIDOcaine Viscous 15ml cup ONE; -MIDAZolam 5mg/5ml vial ONE; -fentaNYL/PF 50MCG/1 ML 2ML syringe ONE; -glucagon, human recombinant 1mg kit ONE; -iohexol 300 MG/1 ML 50ml polymer ONE; -levoFLOXACIN-Levaquin 500mg/D5 100 ML IV ONE
[2019-01-02] MEDS ORDERED: albumin 25% 100mL bottle x 1 IV PRN (09:05)
[2019-01-02] MEDS ORDERED: LANTUS SQ (09:07)
[2019-01-09] MEDS ORDERED: INSU200I SQ (08:32)
== END 2019-01-02 11:07 | disposition home or self-care (01) ==
LOC: SSTAY O 08:44
PROVIDERS: ATTEND Radiology Diagnostic Radiology
DX: R18.8 Other ascites (principal); K74.60 Unspecified cirrhosis of liver; Z87.01 Personal history of pneumonia (recurrent); E11.9 Type 2 diabetes mellitus without complications; Z87.11 Personal history of peptic ulcer disease; Z79.4 Long term (current) use of insulin; Z79.899 Other long term (current) drug therapy; Z72.89 Other problems related to lifestyle; F12.90 Cannabis use, unspecified, uncomplicated; F11.90 Opioid use, unspecified, uncomplicated
CPT/HCPCS: 49083; C1729; P9047

== ENCOUNTER 2019-01-16 08:35 | Day surgery (SDC) | payer MEDICAID ==
[2019-01-16] VITALS (7 sets, daily range): BP systolic 139–162; BP diastolic 82–89
[~2019-01-16] VITALS: Ht 165.1 cm; Wt 52.6 kg
[~2019-01-16 08:35] MED LIST changes: -INSU100V11 SQ; +INSU200I SQ; +LANTUS SQ
[2019-01-16] MEDS ORDERED: albumin 25% 100mL bottle x 1 IV PRN (09:35)
[2019-01-16] MEDS ORDERED: normal saline 1000ml 1,000 ML IV PRN (09:35)
== END 2019-01-16 10:20 | disposition home or self-care (01) ==
LOC: SSTAY O 08:35
PROVIDERS: ATTEND Radiology Diagnostic Radiology
DX: R18.8 Other ascites (principal)
CPT/HCPCS: 49083; C1729; J2001; J7030; P9047

== ENCOUNTER 2019-02-13 07:36 | Day surgery (SDC) | payer MEDICAID ==
[~2019-02-13] VITALS: Ht 152.4 cm; Wt 49.3 kg
[~2019-02-13 07:36] MED LIST changes: -LANTUS SQ
[2019-02-13] MEDS ORDERED: normal saline 1000ml 1,000 ML IV PRN (07:55)
[2019-02-13] MEDS ORDERED: albumin 25% 100mL bottle x 1 IV PRN (07:55)
[2019-02-13 08:01] VITALS: BP 128/75
[2019-02-13 09:20] VITALS: BP 143/76
[2019-02-13 09:35] VITALS: BP 134/76
[2019-02-13 09:50] VITALS: BP 136/73
[2019-02-13 10:00] VITALS: BP 120/71
== END 2019-02-13 10:05 | disposition home or self-care (01) ==
LOC: SSTAY O 07:36
PROVIDERS: ATTEND Radiology Diagnostic Radiology
DX: R18.8 Other ascites (principal); K74.60 Unspecified cirrhosis of liver
CPT/HCPCS: 49083; C1729; J7030

== ENCOUNTER 2019-02-21 10:15 | Day surgery (SDC) | payer MEDICAID ==
--- NOTE | 2019-02-21 15:22 | NUR ---
Patient ambulated independently from [facility] and was admitted to outpatient wound care for physician visit with Leonel Grant MD. Dressing removed, wound cleansed and lidocaine applied per order. Patient assessed for changes in conditions, medications and medical history. Dr. Grant at bedside accompanied by RN. Wound assessed, time out performed by MD/RN. Wound debrided as detailed in the physician progress/procedure note. Plan of care discussed with patient. Dressings placed per MD orders. Patient instructed on the signs and symptoms of infection and to call the Wound Center if any occur or to go to the ED if we are closed: Increased pain in wound Increase in drainage from the wound Redness in the skin surrounding the wound Bleeding from the wound Temperature of 101 or greater Patient instructed that the weight of their body puts a large amount of pressure on their wounds. This pressure keeps the new tissue from growing and inhibits new blood vessels from forming. Explained that, if they continue to bear weight on a body part that has a wound, the time it takes to heal the wound increases, the wound may get worse or the wound may not heal at all. Patient verbalized understanding of all discharge instructions and plan of care and ambulated independently out to [facility] in stable condition with no sign or symptom of distress at time of discharge. Addendum: 02/21/19 at 1535 by Vicenta Byrd RN Amended: Links added.
== END 2019-02-21 11:51 | disposition home or self-care (01) ==
LOC: WOUND CARE 10:15
PROVIDERS: ATTEND Surgery
DX: E11.622 Type 2 diabetes mellitus with other skin ulcer (principal); L98.491 Non-pressure chronic ulcer of skin of other sites limited to breakdown of skin; E11.65 Type 2 diabetes mellitus with hyperglycemia; L03.116 Cellulitis of left lower limb; F12.10 Cannabis abuse, uncomplicated; F11.90 Opioid use, unspecified, uncomplicated; F15.90 Other stimulant use, unspecified, uncomplicated; Z79.899 Other long term (current) drug therapy; Z79.4 Long term (current) use of insulin; Z86.19 Personal history of other infectious and parasitic diseases
CPT/HCPCS: 97597; A6222; A4663; A6021

== ENCOUNTER 2019-02-28 09:03 | Outpatient (CLI) | payer MEDICAID ==
[2019-02-28] MEDS ORDERED: silver sulfadiazine cream 50gm TP ONE (09:59)
--- NOTE | 2019-02-28 12:20 | NUR ---
Patient arrived safely into [facility] via ambulation. Patient admitted to outpatient wound care clinic for visit with Leonel Grant MD. Dressing removed, wound cleansed and lidocaine applied per order. Patient assessed and medications and medical history reviewed. Dr. Grant at bedside accompanied by RN. Wound assessed, time out performed by MD/RN. Wound debrided as detailed in the physician progress/procedure note. Plan of care discussed with patient. Dressings placed per MD orders. Patient instructed on the signs and symptoms of infection and to call the Wound Center if any occur or to go to the ED if we are closed: Increased pain in wound Increase in drainage from the wound Redness in the skin surrounding the wound Bleeding from the wound Temperature of 101 or greater Patient instructed that the weight of their body puts a large amount of pressure on their wounds. This pressure keeps the new tissue from growing and inhibits new blood vessels from forming. Explained that, if they continue to bear weight on a body part that has a wound, the time it takes to heal the wound increases, the wound may get worse or the wound may not heal at all. Patient verbalized understanding of all discharge instructions and plan of care. Patient left in stable condition with no sign or symptom of distress at time of discharge. Addendum: 02/28/19 at 1220 by Fortino Tyson RN Amended: Links added.
== END 2019-02-28 11:30 | disposition home or self-care (01) ==
LOC: WOUND CARE 09:03 → EDSTATUS 10:30 → WOUND CARE 11:30
PROVIDERS: ATTEND Surgery
DX: E11.622 Type 2 diabetes mellitus with other skin ulcer (principal); L98.491 Non-pressure chronic ulcer of skin of other sites limited to breakdown of skin; E11.65 Type 2 diabetes mellitus with hyperglycemia; L03.116 Cellulitis of left lower limb; F12.10 Cannabis abuse, uncomplicated; F11.90 Opioid use, unspecified, uncomplicated; F15.90 Other stimulant use, unspecified, uncomplicated; Z79.899 Other long term (current) drug therapy; Z79.4 Long term (current) use of insulin; Z86.19 Personal history of other infectious and parasitic diseases
CPT/HCPCS: 36416; 82948; G0463; A4663

== ENCOUNTER 2019-03-04 08:27 | Day surgery (SDC) | payer MEDICAID ==
[~2019-03-04] VITALS: Ht 152.4 cm; Wt 57.7 kg
[2019-03-04] MEDS ORDERED: albumin 25% 100mL bottle x 1 IV PRN (08:50)
[2019-03-04] MEDS ORDERED: normal saline 1000ml 1,000 ML IV PRN (08:50)
[2019-03-04 09:00] VITALS: BP 135/81
[2019-03-04 09:20] VITALS: BP 135/81
[2019-03-04 09:25] VITALS: BP 124/80
[2019-03-04 09:40] VITALS: BP 103/58
[2019-03-04 09:55] VITALS: BP 104/62
[2019-03-04 10:24] VITALS: BP 111/65
== END 2019-03-04 10:25 | disposition home or self-care (01) ==
LOC: SSTAY O 08:27
PROVIDERS: ATTEND Radiology Vascular & Interventional Radiology
DX: R18.8 Other ascites (principal); E11.9 Type 2 diabetes mellitus without complications; K74.60 Unspecified cirrhosis of liver; Z87.01 Personal history of pneumonia (recurrent); Z87.11 Personal history of peptic ulcer disease; F12.90 Cannabis use, unspecified, uncomplicated; F15.90 Other stimulant use, unspecified, uncomplicated; Z79.899 Other long term (current) drug therapy; Z79.4 Long term (current) use of insulin
CPT/HCPCS: 49083; C1729; J7030; P9047

== ENCOUNTER 2019-03-11 08:02 | Day surgery (SDC) | payer MEDICAID ==
[2019-03-11] VITALS (15 sets, daily range): BP systolic 101–136; BP diastolic 57–81
[~2019-03-11] VITALS: Ht 152.4 cm; Wt 50.1 kg
[2019-03-11] MEDS ORDERED: albumin 25% 100mL bottle x 1 IV PRN (08:25)
[2019-03-11] MEDS ORDERED: normal saline 1000ml 1,000 ML IV PRN (08:25)
== END 2019-03-11 12:55 | disposition home or self-care (01) ==
LOC: SSTAY O 08:02
PROVIDERS: ATTEND Radiology Vascular & Interventional Radiology
DX: R18.8 Other ascites (principal); K74.60 Unspecified cirrhosis of liver; E11.9 Type 2 diabetes mellitus without complications; F12.90 Cannabis use, unspecified, uncomplicated; F15.90 Other stimulant use, unspecified, uncomplicated; Z87.19 Personal history of other diseases of the digestive system; Z87.01 Personal history of pneumonia (recurrent); Z88.8 Allergy status to other drugs, medicaments and biological substances; Z79.4 Long term (current) use of insulin; Z79.899 Other long term (current) drug therapy; Z86.19 Personal history of other infectious and parasitic diseases
CPT/HCPCS: 49083; C1729; J7030; P9047

== ENCOUNTER 2019-03-19 07:59 | Day surgery (SDC) | payer MEDICAID ==
[2019-03-19] VITALS (10 sets, daily range): BP systolic 99–124; BP diastolic 59–77
[~2019-03-19] VITALS: Ht 152.4 cm; Wt 51.6 kg
[2019-03-19] MEDS ORDERED: normal saline 1000ml 1,000 ML IV PRN (08:30)
[2019-03-19] MEDS: albumin 25% 100mL bottle x 1 IV PRN ×2 (11:06→11:37)
== END 2019-03-19 12:20 | disposition home or self-care (01) ==
LOC: SSTAY O 07:59
PROVIDERS: ATTEND Radiology Diagnostic Radiology
DX: R18.8 Other ascites (principal); E11.9 Type 2 diabetes mellitus without complications; K74.60 Unspecified cirrhosis of liver; Z87.01 Personal history of pneumonia (recurrent); Z87.11 Personal history of peptic ulcer disease; F15.90 Other stimulant use, unspecified, uncomplicated; F11.90 Opioid use, unspecified, uncomplicated; Z88.8 Allergy status to other drugs, medicaments and biological substances; Z79.899 Other long term (current) drug therapy; Z79.4 Long term (current) use of insulin
CPT/HCPCS: 49083; C1729; J7030; P9047

== ENCOUNTER 2019-03-27 08:25 | Day surgery (SDC) | payer MEDICAID ==
[~2019-03-27] VITALS: Ht 152.4 cm; Wt 50.6 kg
[2019-03-27] VITALS (9 sets, daily range): BP systolic 102–124; BP diastolic 65–79
[2019-03-27] MEDS ORDERED: normal saline 1000ml 1,000 ML IV PRN (09:05)
[2019-03-27] MEDS ORDERED: albumin 25% 100mL bottle x 1 IV PRN ×2 (09:05→10:40)
== END 2019-03-27 11:35 | disposition home or self-care (01) ==
LOC: SSTAY O 08:25
PROVIDERS: ATTEND Radiology Diagnostic Radiology
DX: R18.8 Other ascites (principal); E11.9 Type 2 diabetes mellitus without complications; K74.60 Unspecified cirrhosis of liver; Z87.01 Personal history of pneumonia (recurrent); Z87.11 Personal history of peptic ulcer disease; F15.90 Other stimulant use, unspecified, uncomplicated; F11.90 Opioid use, unspecified, uncomplicated; Z86.19 Personal history of other infectious and parasitic diseases; Z88.8 Allergy status to other drugs, medicaments and biological substances; Z79.899 Other long term (current) drug therapy
CPT/HCPCS: 49083; C1729; J7030; 76937; P9047

== ENCOUNTER 2019-04-02 07:56 | Day surgery (SDC) | payer MEDICAID ==
[~2019-04-02] VITALS: Ht 152.4 cm; Wt 49.7 kg
[2019-04-02 08:38] VITALS: BP 123/69
[2019-04-02 09:00] VITALS: BP 117/70
[2019-04-02 09:46] VITALS: BP 119/77
[2019-04-02 10:00] VITALS: BP 106/62
[2019-04-02 10:15] VITALS: BP 130/71
[2019-04-02] MEDS ORDERED: albumin 25% 100mL bottle x 1 IV PRN (10:15)
[2019-04-02] MEDS ORDERED: normal saline 1000ml 1,000 ML IV PRN (10:15)
[2019-04-02 10:30] VITALS: BP_SYST 120; BP_SYST 121; BP_DIAS 65; BP_DIAS 67
== END 2019-04-02 11:20 | disposition home or self-care (01) ==
LOC: SSTAY O 07:56
PROVIDERS: ATTEND Radiology Diagnostic Radiology
DX: R18.8 Other ascites (principal); K74.60 Unspecified cirrhosis of liver; E11.9 Type 2 diabetes mellitus without complications; Z87.01 Personal history of pneumonia (recurrent); Z86.19 Personal history of other infectious and parasitic diseases; Z87.11 Personal history of peptic ulcer disease; F15.90 Other stimulant use, unspecified, uncomplicated; F11.90 Opioid use, unspecified, uncomplicated; Z79.899 Other long term (current) drug therapy; Z79.4 Long term (current) use of insulin; Z88.8 Allergy status to other drugs, medicaments and biological substances
CPT/HCPCS: 49083; C1729; J7030; P9047

== ENCOUNTER 2019-04-10 07:58 | Day surgery (SDC) | payer MEDICAID ==
[~2019-04-10] VITALS: Ht 152.4 cm; Wt 51.5 kg
[2019-04-10] VITALS (8 sets, daily range): BP systolic 109–126; BP diastolic 59–78
[2019-04-10] MEDS ORDERED: normal saline 1000ml 1,000 ML IV PRN (08:30)
[2019-04-10] MEDS: albumin 25% 100mL bottle x 1 IV PRN ×2 (09:42→10:23)
== END 2019-04-10 10:55 | disposition home or self-care (01) ==
LOC: SSTAY O 07:58
PROVIDERS: ATTEND Radiology Diagnostic Radiology
DX: R18.8 Other ascites (principal); K74.60 Unspecified cirrhosis of liver; Z86.19 Personal history of other infectious and parasitic diseases; E11.9 Type 2 diabetes mellitus without complications; F15.90 Other stimulant use, unspecified, uncomplicated; F11.90 Opioid use, unspecified, uncomplicated; Z88.8 Allergy status to other drugs, medicaments and biological substances; Z79.899 Other long term (current) drug therapy; Z79.4 Long term (current) use of insulin
CPT/HCPCS: 49083; C1729; J7030; P9047; 76937

== ENCOUNTER 2019-04-16 07:52 | Day surgery (SDC) | payer MEDICAID ==
[~2019-04-16] VITALS: Ht 152.4 cm; Wt 49.2 kg
[2019-04-16 08:03] VITALS: BP 124/72
[2019-04-16] MEDS ORDERED: normal saline 1000ml 1,000 ML IV PRN (08:20)
[2019-04-16] MEDS ORDERED: albumin 25% 100mL bottle x 1 IV PRN (08:20)
[2019-04-16 09:35] VITALS: BP 120/82
[2019-04-16 09:45] VITALS: BP 151/85
[2019-04-16 10:00] VITALS: BP 134/87
[2019-04-16 10:15] VITALS: BP 136/81
[2019-04-16 10:30] VITALS: BP 122/69
== END 2019-04-16 10:40 | disposition home or self-care (01) ==
LOC: SSTAY O 07:52
PROVIDERS: ATTEND Radiology Vascular & Interventional Radiology
DX: R18.8 Other ascites (principal); K74.60 Unspecified cirrhosis of liver
CPT/HCPCS: 49083; C1729; J7030; P9047; 76937

== ENCOUNTER 2019-04-24 08:00 | Day surgery (SDC) | payer MEDICAID ==
[~2019-04-24] VITALS: Ht 152.4 cm; Wt 49.5 kg
[2019-04-24] VITALS (7 sets, daily range): BP systolic 108–132; BP diastolic 53–70
[2019-04-24] MEDS ORDERED: normal saline 1000ml 1,000 ML IV PRN (08:15)
[2019-04-24] MEDS ORDERED: albumin 25% 100mL bottle x 1 IV PRN (08:15)
== END 2019-04-24 11:00 | disposition home or self-care (01) ==
LOC: SSTAY O 08:00
PROVIDERS: ATTEND Radiology Vascular & Interventional Radiology
DX: R18.8 Other ascites (principal); K74.60 Unspecified cirrhosis of liver; E11.9 Type 2 diabetes mellitus without complications; Z87.11 Personal history of peptic ulcer disease; Z87.01 Personal history of pneumonia (recurrent); F15.90 Other stimulant use, unspecified, uncomplicated; F11.90 Opioid use, unspecified, uncomplicated; Z79.4 Long term (current) use of insulin; Z79.899 Other long term (current) drug therapy
CPT/HCPCS: 49083; C1729; J7030; P9047; 76937

== ENCOUNTER 2019-05-01 08:31 | Day surgery (SDC) | payer MEDICAID ==
[~2019-05-01] VITALS: Ht 152.4 cm; Wt 47.9 kg
[2019-05-01] VITALS (7 sets, daily range): BP systolic 134–160; BP diastolic 84–102
[2019-05-01] MEDS ORDERED: albumin 25% 100mL bottle x 1 IV PRN (09:00)
[2019-05-01] MEDS ORDERED: normal saline 1000ml 1,000 ML IV PRN (09:00)
== END 2019-05-01 11:25 | disposition home or self-care (01) ==
LOC: SSTAY O 08:31
PROVIDERS: ATTEND Radiology Diagnostic Radiology
DX: R18.8 Other ascites (principal); K74.60 Unspecified cirrhosis of liver; E11.9 Type 2 diabetes mellitus without complications; B18.2 Chronic viral hepatitis C; Z87.01 Personal history of pneumonia (recurrent); Z87.11 Personal history of peptic ulcer disease; F15.90 Other stimulant use, unspecified, uncomplicated; F11.90 Opioid use, unspecified, uncomplicated; Z88.8 Allergy status to other drugs, medicaments and biological substances; Z79.4 Long term (current) use of insulin; Z79.899 Other long term (current) drug therapy
CPT/HCPCS: 49083; C1729; J7030; P9047; 76937

== ENCOUNTER 2019-05-08 07:56 | Day surgery (SDC) | payer MEDICAID ==
[2019-05-08] VITALS (7 sets, daily range): BP systolic 102–137; BP diastolic 76–88
[~2019-05-08] VITALS: Ht 152.4 cm; Wt 48.0 kg
[2019-05-08] MEDS ORDERED: albumin 25% 100mL bottle x 1 IV PRN (08:30)
[2019-05-08] MEDS ORDERED: normal saline 1,000 ML IV SCH (08:30)
== END 2019-05-08 11:50 | disposition home or self-care (01) ==
LOC: SSTAY O 07:56
PROVIDERS: ATTEND Radiology Diagnostic Radiology
DX: K70.31 Alcoholic cirrhosis of liver with ascites (principal); E11.9 Type 2 diabetes mellitus without complications; Z86.19 Personal history of other infectious and parasitic diseases; Z87.01 Personal history of pneumonia (recurrent); Z87.11 Personal history of peptic ulcer disease; F15.90 Other stimulant use, unspecified, uncomplicated; F11.90 Opioid use, unspecified, uncomplicated; Z88.8 Allergy status to other drugs, medicaments and biological substances; Z79.4 Long term (current) use of insulin; Z79.899 Other long term (current) drug therapy
CPT/HCPCS: 49083; C1729; J7030; P9047; 76937

== ENCOUNTER 2019-05-12 11:00 | Outpatient (CLI) | payer MEDICAID ==
[2019-05-12] MEDS ORDERED: LIDOcaine 2% 5ml jelly ONE (11:56)
[2019-05-12] MEDS ORDERED: silver sulfadiazine cream 50gm TP ONE (12:45)
== END 2019-05-12 12:59 | disposition home or self-care (01) ==
LOC: WOUND CARE 11:00 → EDSTATUS 11:00 → WOUND CARE 12:59
PROVIDERS: ATTEND Surgery
DX: T81.89XA Other complications of procedures, not elsewhere classified, initial encounter (principal); E11.622 Type 2 diabetes mellitus with other skin ulcer; I70.242 Atherosclerosis of native arteries of left leg with ulceration of calf; L97.221 Non-pressure chronic ulcer of left calf limited to breakdown of skin; L97.821 Non-pressure chronic ulcer of other part of left lower leg limited to breakdown of skin; I70.232 Atherosclerosis of native arteries of right leg with ulceration of calf; L97.211 Non-pressure chronic ulcer of right calf limited to breakdown of skin; L97.811 Non-pressure chronic ulcer of other part of right lower leg limited to breakdown of skin; K70.31 Alcoholic cirrhosis of liver with ascites; F17.200 Nicotine dependence, unspecified, uncomplicated; F11.90 Opioid use, unspecified, uncomplicated; F15.90 Other stimulant use, unspecified, uncomplicated; Z86.19 Personal history of other infectious and parasitic diseases; Z90.49 Acquired absence of other specified parts of digestive tract; Z79.4 Long term (current) use of insulin; Z79.899 Other long term (current) drug therapy; Z87.11 Personal history of peptic ulcer disease; Y83.8 Other surgical procedures as the cause of abnormal reaction of the patient, or of later complication, without mention of misadventure at the time of the procedure
CPT/HCPCS: 36416; 82948; A6223; G0463; A4663; A6243; A6446

== ENCOUNTER 2019-05-15 07:54 | Day surgery (SDC) | payer MEDICAID ==
[2019-05-15] VITALS (7 sets, daily range): BP systolic 125–136; BP diastolic 75–81
[~2019-05-15] VITALS: Ht 152.4 cm; Wt 49.3 kg
[2019-05-15] MEDS ORDERED: albumin 25% 100mL bottle x 1 IV PRN (08:40)
[2019-05-15] MEDS ORDERED: normal saline 1000ml 1,000 ML IV PRN (08:40)
== END 2019-05-15 10:55 | disposition home or self-care (01) ==
LOC: SSTAY O 07:54
PROVIDERS: ATTEND Radiology Vascular & Interventional Radiology
DX: K70.31 Alcoholic cirrhosis of liver with ascites (principal); E11.9 Type 2 diabetes mellitus without complications; Z86.19 Personal history of other infectious and parasitic diseases; Z87.11 Personal history of peptic ulcer disease; Z87.01 Personal history of pneumonia (recurrent); F15.90 Other stimulant use, unspecified, uncomplicated; F11.90 Opioid use, unspecified, uncomplicated; Z88.8 Allergy status to other drugs, medicaments and biological substances; Z79.4 Long term (current) use of insulin; Z79.899 Other long term (current) drug therapy
CPT/HCPCS: 49083; C1729; J7030; P9047; 76937

== ENCOUNTER 2019-05-22 07:55 | Day surgery (SDC) | payer MEDICAID ==
[~2019-05-22] VITALS: Ht 152.4 cm; Wt 53.2 kg
[2019-05-22] VITALS (9 sets, daily range): BP systolic 107–140; BP diastolic 54–92
[2019-05-22] MEDS ORDERED: albumin 25% 100mL bottle x 1 IV PRN (08:25)
== END 2019-05-22 12:00 | disposition home or self-care (01) ==
LOC: SSTAY O 07:55
PROVIDERS: ATTEND Radiology Diagnostic Radiology
DX: K70.31 Alcoholic cirrhosis of liver with ascites (principal); E11.9 Type 2 diabetes mellitus without complications; F15.90 Other stimulant use, unspecified, uncomplicated; F11.90 Opioid use, unspecified, uncomplicated; Z88.8 Allergy status to other drugs, medicaments and biological substances; Z86.19 Personal history of other infectious and parasitic diseases; Z87.11 Personal history of peptic ulcer disease; Z87.01 Personal history of pneumonia (recurrent); Z79.4 Long term (current) use of insulin; Z79.899 Other long term (current) drug therapy
CPT/HCPCS: 49083; C1729; P9047; 76937

== ENCOUNTER 2019-05-22 12:05 | Outpatient (CLI) | payer MEDICAID ==
[2019-05-22] MEDS ORDERED: silver sulfadiazine cream 50gm TP ONE (12:26)
== END 2019-05-22 12:40 | disposition home or self-care (01) ==
LOC: WOUND CARE 12:05
PROVIDERS: ATTEND Surgery
DX: E11.622 Type 2 diabetes mellitus with other skin ulcer (principal); I70.242 Atherosclerosis of native arteries of left leg with ulceration of calf; L97.221 Non-pressure chronic ulcer of left calf limited to breakdown of skin; L97.821 Non-pressure chronic ulcer of other part of left lower leg limited to breakdown of skin; I70.232 Atherosclerosis of native arteries of right leg with ulceration of calf; L97.211 Non-pressure chronic ulcer of right calf limited to breakdown of skin; L97.811 Non-pressure chronic ulcer of other part of right lower leg limited to breakdown of skin; K70.31 Alcoholic cirrhosis of liver with ascites; F17.200 Nicotine dependence, unspecified, uncomplicated; F11.90 Opioid use, unspecified, uncomplicated; F15.90 Other stimulant use, unspecified, uncomplicated; Z86.19 Personal history of other infectious and parasitic diseases; Z90.49 Acquired absence of other specified parts of digestive tract; Z79.4 Long term (current) use of insulin; Z79.899 Other long term (current) drug therapy; Z87.11 Personal history of peptic ulcer disease
CPT/HCPCS: 36416; 82948; A6223; G0463; A4663; A6446

== ENCOUNTER 2019-05-29 07:59 | Day surgery (SDC) | payer MEDICAID ==
[~2019-05-29] VITALS: Ht 152.4 cm; Wt 55.2 kg
[2019-05-29 08:15] VITALS: BP 133/81
[2019-05-29] MEDS ORDERED: albumin 25% 100mL bottle x 1 IV PRN (08:20)
[2019-05-29] MEDS ORDERED: normal saline 1000ml 1,000 ML IV PRN (08:20)
[2019-05-29 08:40] VITALS: BP 123/79
[2019-05-29 08:55] VITALS: BP 130/86
[2019-05-29 09:10] VITALS: BP 137/78
[2019-05-29 09:25] VITALS: BP 118/72
[2019-05-29 09:30] VITALS: BP 99/63
== END 2019-05-29 09:40 | disposition home or self-care (01) ==
LOC: SSTAY O 07:59
PROVIDERS: ATTEND Radiology Diagnostic Radiology
DX: R18.8 Other ascites (principal); K74.60 Unspecified cirrhosis of liver; E11.9 Type 2 diabetes mellitus without complications; F15.90 Other stimulant use, unspecified, uncomplicated; F11.90 Opioid use, unspecified, uncomplicated; Z79.4 Long term (current) use of insulin; Z86.19 Personal history of other infectious and parasitic diseases; Z79.899 Other long term (current) drug therapy
CPT/HCPCS: 49083; C1729; J7030; P9047; 76937

== ENCOUNTER 2019-06-05 07:39 | Outpatient (CLI) | payer MEDICAID ==
[2019-06-05 08:43] LABS: BASOPHILS # (AUTO) 0.1 X10'3 (0-0.2); BASOPHILS % (AUTO) 1.9 % (0-1); EOSINOPHILS # (AUTO) 0.3 X10'3 (0-0.9); EOSINOPHILS % (AUTO) 6.5 % (0-6); HEMATOCRIT 31.7 % (35.0-45.0); HEMOGLOBIN 10.1 g/dl (12.0-16.0); LYMPHOCYTES # (AUTO) 0.7 X10'3 (1.1-4.8); LYMPHOCYTES % (AUTO) 19.1 % (21-51); MEAN CORPUSCULAR HEMOGLOBIN 23.8 PG (27.0-31.0); MEAN CORPUSCULAR VOLUME 74.6 FL (78-98); MEAN PLATELET VOLUME 6.7 FL (7.4-10.4); MONOCYTES # (AUTO) 0.2 X10'3 (0-0.9); NEUTROPHILS # (AUTO) 2.6 X10'3 (1.8-7.7); NEUTROPHILS % (AUTO) 68.5 % (42-75); PLATELET COUNT 155 X10'3 (140-440); RED BLOOD COUNT 4.25 X10'6 (4.20-5.60); WHITE BLOOD COUNT 3.9 X10'3 (4.5-11.0)
[2019-06-05 09:03] LABS: ALANINE AMINOTRANSFERASE 33 U/L (12-78); ALBUMIN 2.6 G/DL (3.4-5.0); ALBUMIN/GLOBULIN RATIO 0.5 (1.1-1.5); ALKALINE PHOSPHATASE 312 IU/L (46-116); ANION GAP 6 (8-16); ASPARTATE AMINO TRANSFERASE 50 U/L (10-37); BILIRUBIN,TOTAL 0.6 MG/DL (0.1-1.0); BLOOD UREA NITROGEN 13 MG/DL (7-18); BUN/CREATININE RATIO 19.7 (6.6-38.0); CALCIUM 8.3 MG/DL (8.5-10.1); CHLORIDE 108 MMOL/L (99-107); CHOL/HDL RATIO 2.5 (0.00-4.99); CHOLESTEROL 97 MG/DL (0-200); CREATININE 0.66 MG/DL (0.40-0.90); GLUCOSE 157 MG/DL (70-104); HDL CHOLESTEROL 39 MG/DL (35-60); LDL CHOLESTEROL 51 MG/DL (50-100); POTASSIUM 3.9 MMOL/L (3.5-5.1); SODIUM 141 MMOL/L (135-145); TOTAL CARBON DIOXIDE 26.7 MMOL/L (24-32); TOTAL PROTEIN 7.6 G/DL (6.4-8.2); TRIGLYCERIDES 42 MG/DL (20-135); eGFR > 90 ML/MIN
[2019-06-05 09:37] LABS: ANISOCYTOSIS 3+; MICROCYTOSIS 1+; PLATELET ESTIMATE NORMAL
== END 2019-06-05 23:59 | disposition home or self-care (01) ==
LOC: LAB 07:39
PROVIDERS: ATTEND Physician Assistant
DX: E11.69 Type 2 diabetes mellitus with other specified complication (principal); K76.9 Liver disease, unspecified; R19.7 Diarrhea, unspecified
CPT/HCPCS: 36415; 80053; 80061; 82103; 82140; 82306; 84443; 85025; 87045; 87046

== ENCOUNTER 2019-06-05 07:47 | Day surgery (SDC) | payer MEDICAID ==
[~2019-06-05] VITALS: Ht 152.4 cm; Wt 53.9 kg
[2019-06-05 08:10] VITALS: BP 135/84
[2019-06-05] MEDS ORDERED: normal saline 250ml IV soln 250 ML IV SCH (08:10)
[2019-06-05] MEDS ORDERED: albumin 25% 100mL bottle x 1 IV PRN (08:10)
[2019-06-05 08:30] VITALS: BP 135/84
[2019-06-05 11:03] VITALS: BP 136/78
== END 2019-06-05 10:30 | disposition home or self-care (01) ==
LOC: SSTAY O 07:47
PROVIDERS: ATTEND Radiology Vascular & Interventional Radiology
DX: R18.8 Other ascites (principal)
CPT/HCPCS: 49083; 76937; C1729; J7050

== ENCOUNTER 2019-06-13 07:45 | Day surgery (SDC) | payer MEDICAID ==
[~2019-06-13] VITALS: Ht 152.4 cm; Wt 53.3 kg
[2019-06-13] VITALS (9 sets, daily range): BP systolic 116–154; BP diastolic 40–94
[2019-06-13] MEDS ORDERED: albumin 25% 100mL bottle x 1 IV PRN (08:05)
[2019-06-13] MEDS ORDERED: normal saline 1000ml 1,000 ML IV PRN (08:05)
== END 2019-06-13 10:30 | disposition home or self-care (01) ==
LOC: SSTAY O 07:45
PROVIDERS: ATTEND Radiology Diagnostic Radiology
DX: R18.8 Other ascites (principal); F15.90 Other stimulant use, unspecified, uncomplicated; F11.90 Opioid use, unspecified, uncomplicated; E11.9 Type 2 diabetes mellitus without complications; Z87.01 Personal history of pneumonia (recurrent); Z87.11 Personal history of peptic ulcer disease; Z86.19 Personal history of other infectious and parasitic diseases; Z88.8 Allergy status to other drugs, medicaments and biological substances; Z79.4 Long term (current) use of insulin; Z79.899 Other long term (current) drug therapy
CPT/HCPCS: 49083; 82948; C1729; J7030; P9047

== ENCOUNTER 2019-06-20 07:58 | Day surgery (SDC) | payer MEDICAID ==
[~2019-06-20] VITALS: Ht 152.4 cm; Wt 53.0 kg
[2019-06-20] MEDS ORDERED: albumin 25% 100mL bottle x 1 IV PRN (08:15)
[2019-06-20] MEDS ORDERED: normal saline 1000ml 1,000 ML IV PRN (08:15)
[2019-06-20 08:30] VITALS: BP 145/85
[2019-06-20 09:30] VITALS: BP 140/86
[2019-06-20 09:45] VITALS: BP 138/85
[2019-06-20 10:00] VITALS: BP 125/77
[2019-06-20 10:15] VITALS: BP 126/86
== END 2019-06-20 10:30 | disposition home or self-care (01) ==
LOC: SSTAY O 07:58
PROVIDERS: ATTEND Radiology Vascular & Interventional Radiology
DX: R18.8 Other ascites (principal); E11.9 Type 2 diabetes mellitus without complications; F15.90 Other stimulant use, unspecified, uncomplicated; F11.90 Opioid use, unspecified, uncomplicated; Z87.01 Personal history of pneumonia (recurrent); Z87.11 Personal history of peptic ulcer disease; Z86.19 Personal history of other infectious and parasitic diseases; Z88.8 Allergy status to other drugs, medicaments and biological substances; Z79.4 Long term (current) use of insulin; Z79.899 Other long term (current) drug therapy
CPT/HCPCS: 49083; 76937; J7030; P9047; C1729

== ENCOUNTER 2019-06-26 07:35 | Day surgery (SDC) | payer MEDICAID ==
[2019-06-26] VITALS (7 sets, daily range): BP systolic 117–142; BP diastolic 61–80
[~2019-06-26] VITALS: Ht 152.4 cm; Wt 52.4 kg
[2019-06-26] MEDS ORDERED: normal saline 1000ml 1,000 ML IV PRN (07:55)
[2019-06-26] MEDS ORDERED: albumin 25% 100mL bottle x 1 IV PRN (07:55)
[2019-06-26] MEDS ORDERED: LACT10SO57 PO (08:45)
[2019-06-26] MEDS ORDERED: ondansetron/PF 4mg/2ml inj ONE (09:39)
[2019-06-26] MEDS ORDERED: ondansetron/PF 4mg/2ml inj IV ONE (10:00)
== END 2019-06-26 10:57 | disposition home or self-care (01) ==
LOC: SSTAY O 07:35
PROVIDERS: ATTEND Radiology Diagnostic Radiology
DX: R18.8 Other ascites (principal); Z88.8 Allergy status to other drugs, medicaments and biological substances; Z79.4 Long term (current) use of insulin; Z79.899 Other long term (current) drug therapy; K74.60 Unspecified cirrhosis of liver; E11.9 Type 2 diabetes mellitus without complications; F15.90 Other stimulant use, unspecified, uncomplicated; F11.90 Opioid use, unspecified, uncomplicated; Z87.01 Personal history of pneumonia (recurrent); Z87.11 Personal history of peptic ulcer disease
CPT/HCPCS: 49083; C1729; J2405; J7030; P9047; 76937

== ENCOUNTER 2019-07-02 07:41 | Day surgery (SDC) | payer MEDICAID ==
[2019-07-02] VITALS (7 sets, daily range): BP systolic 122–130; BP diastolic 71–87
[~2019-07-02] VITALS: Ht 152.4 cm; Wt 52.3 kg
[2019-07-02] MEDS ORDERED: normal saline 1000ml 1,000 ML IV SCH (08:00)
[2019-07-02] MEDS ORDERED: albumin 25% 100mL bottle x 1 IV PRN (08:25)
[2019-07-02] MEDS ORDERED: normal saline 1000ml 1,000 ML IV PRN (08:25)
== END 2019-07-02 11:20 | disposition home or self-care (01) ==
LOC: SSTAY O 07:41
PROVIDERS: ATTEND Radiology Diagnostic Radiology
DX: R18.8 Other ascites (principal); K74.60 Unspecified cirrhosis of liver; E11.9 Type 2 diabetes mellitus without complications; Z87.01 Personal history of pneumonia (recurrent); Z87.11 Personal history of peptic ulcer disease; F15.90 Other stimulant use, unspecified, uncomplicated; F11.90 Opioid use, unspecified, uncomplicated; Z79.4 Long term (current) use of insulin; Z79.899 Other long term (current) drug therapy; Z88.8 Allergy status to other drugs, medicaments and biological substances
CPT/HCPCS: 49083; C1729; J7030; P9047; 76937

== ENCOUNTER 2019-07-11 08:43 | Day surgery (SDC) | payer MEDICAID ==
[2019-07-11] VITALS (7 sets, daily range): BP systolic 109–146; BP diastolic 59–92
[~2019-07-11] VITALS: Ht 152.4 cm; Wt 53.8 kg
[2019-07-11] MEDS ORDERED: albumin 25% 100mL bottle x 1 IV PRN (09:15)
[2019-07-11] MEDS ORDERED: LACT10SO PO (09:18)
[2019-07-11] MEDS ORDERED: SPIR50TA5 PO (09:18)
[2019-07-11] MEDS ORDERED: GABA-532 PO (09:18)
[2019-07-11] MEDS ORDERED: normal saline 1000ml 1,000 ML IV PRN (09:20)
[2019-07-11] MEDS ORDERED: ondansetron/PF 4mg/2ml inj ONE (09:53)
== END 2019-07-11 11:30 | disposition home or self-care (01) ==
LOC: SSTAY O 08:43
PROVIDERS: ATTEND Radiology Vascular & Interventional Radiology
DX: R18.8 Other ascites (principal); E11.9 Type 2 diabetes mellitus without complications; Z87.01 Personal history of pneumonia (recurrent); Z87.11 Personal history of peptic ulcer disease; Z86.19 Personal history of other infectious and parasitic diseases; F15.90 Other stimulant use, unspecified, uncomplicated; F11.90 Opioid use, unspecified, uncomplicated; Z79.899 Other long term (current) drug therapy; Z79.4 Long term (current) use of insulin
CPT/HCPCS: 49083; C1729; J2405; J7030; P9047

== ENCOUNTER 2019-07-17 07:59 | Day surgery (SDC) | payer MEDICAID ==
[~2019-07-17] VITALS: Ht 154.9 cm; Wt 53.1 kg
[2019-07-17] VITALS (13 sets, daily range): BP systolic 126–157; BP diastolic 62–97
[~2019-07-17 07:59] MED LIST changes: -FURO40TA4 PO
[2019-07-17] MEDS ORDERED: normal saline 1000ml 1,000 ML IV PRN (08:25)
[2019-07-17] MEDS ORDERED: albumin 25% 100mL bottle x 1 IV PRN (08:25)
[2019-07-17] MEDS ORDERED: ondansetron/PF 4mg/2ml inj IM ONE (09:20)
[2019-07-17] MEDS ORDERED: ondansetron 4mg rapidly disintigrating tab PO ONE (09:40)
[2019-07-17] MEDS ORDERED: ondansetron/PF 4mg/2ml inj IV ONE (10:00)
--- NOTE | 2019-07-17 10:15 | NUR ---
Para DC'd, cannula intact. Drsg applied
--- NOTE | 2019-07-17 10:28 | NUR ---
After removal of para cannula, Pt rt abdominal puncture site was bleeding marleen, red blood. Pressure applied and held for 10min. Eliseo MAE was called to bedside. New abdominal dressing applied by Zak LazcanoNAra chaney. Ordered to monitor patient for 15min. VS stable as charted. Will continue to monitor.
--- NOTE | 2019-07-17 10:45 | NUR ---
Pt site stable. Eliseo MAE called to bedside to assess site for pt discharge. Pt able to go home. IV dc'd cannula intact. no s/s of bleeding.
== END 2019-07-17 10:55 | disposition home or self-care (01) ==
LOC: SSTAY O 07:59
PROVIDERS: ATTEND Radiology Diagnostic Radiology
DX: R18.8 Other ascites (principal); K74.60 Unspecified cirrhosis of liver; E11.9 Type 2 diabetes mellitus without complications; Z86.19 Personal history of other infectious and parasitic diseases; Z87.11 Personal history of peptic ulcer disease; Z87.01 Personal history of pneumonia (recurrent); Z79.899 Other long term (current) drug therapy; Z79.4 Long term (current) use of insulin
CPT/HCPCS: 49083; C1729; J7030; P9047; 76937; J2405

== ENCOUNTER 2019-07-24 07:55 | Day surgery (SDC) | payer MEDICAID ==
[2019-07-24] VITALS (7 sets, daily range): BP systolic 128–145; BP diastolic 61–93
[~2019-07-24] VITALS: Ht 152.4 cm; Wt 55.2 kg
[2019-07-24] MEDS ORDERED: normal saline 1000ml 1,000 ML IV PRN (08:20)
[2019-07-24] MEDS ORDERED: ondansetron/PF 4mg/2ml inj ONE (09:23)
[2019-07-24] MEDS: albumin 25% 100mL bottle x 1 IV PRN ×2 (10:09→10:39)
[2019-07-25] MEDS ORDERED: MIRT7.5T11 PO (21:34)
[2019-07-25] MEDS ORDERED: ONDA4TAB11 PO (21:36)
[2019-07-25] MEDS ORDERED: RIFA550T PO (21:36)
== END 2019-07-24 12:07 | disposition home or self-care (01) ==
LOC: SSTAY O 07:55
PROVIDERS: ATTEND Radiology Diagnostic Radiology
DX: R18.8 Other ascites (principal); R14.0 Abdominal distension (gaseous)
CPT/HCPCS: 49083; 76937; J2405; J7030; P9047

== ENCOUNTER 2019-07-25 18:22 | Inpatient (IN) | payer MEDICAID ==
[~2019-07-25] VITALS: Ht 152.4 cm; Wt 48.6 kg
[2019-07-25 19:23] LABS: BASOPHILS # (AUTO) 0.1 X10'3 (0-0.2); BASOPHILS % (AUTO) 1.2 % (0-1); EOSINOPHILS # (AUTO) 0.1 X10'3 (0-0.9); EOSINOPHILS % (AUTO) 1.3 % (0-6); HEMATOCRIT 23.8 % (35.0-45.0); HEMOGLOBIN 7.8 g/dl (12.0-16.0); LYMPHOCYTES # (AUTO) 0.9 X10'3 (1.1-4.8); LYMPHOCYTES % (AUTO) 13.9 % (21-51); MEAN CORPUSCULAR HEMOGLOBIN 24.2 PG (27.0-31.0); MEAN CORPUSCULAR HGB CONC 32.7 g/dL (33.0-36.5); MEAN CORPUSCULAR VOLUME 74.2 FL (78-98); MEAN PLATELET VOLUME 6.9 FL (7.4-10.4); MONOCYTES # (AUTO) 0.4 X10'3 (0-0.9); MONOCYTES % (AUTO) 6.5 % (2-12); NEUTROPHILS # (AUTO) 4.7 X10'3 (1.8-7.7); NEUTROPHILS % (AUTO) 77.1 % (42-75); PLATELET COUNT 149 X10'3 (140-440); RED BLOOD COUNT 3.21 X10'6 (4.20-5.60); RED CELL DISTRIBUTION WIDTH 18.4 % (11.5-14.5); WHITE BLOOD COUNT 6.1 X10'3 (4.5-11.0)
[2019-07-25 19:36] LABS: ALANINE AMINOTRANSFERASE 28 U/L (12-78); ALBUMIN/GLOBULIN RATIO 0.8 (1.1-1.5); ALKALINE PHOSPHATASE 234 IU/L (46-116); ANION GAP 7 (8-16); ASPARTATE AMINO TRANSFERASE 39 U/L (10-37); BILIRUBIN,TOTAL 0.6 MG/DL (0.1-1.0); BLOOD UREA NITROGEN 25 MG/DL (7-18); BUN/CREATININE RATIO 30.5 (6.6-38.0); CALCIUM 8.1 MG/DL (8.5-10.1); CHLORIDE 100 MMOL/L (99-107); CREATININE 0.82 MG/DL (0.40-0.90); GLUCOSE 203 MG/DL (70-104); LIPASE 63 U/L (73-393); POTASSIUM 3.9 MMOL/L (3.5-5.1); SODIUM 133 MMOL/L (135-145); TOTAL CARBON DIOXIDE 25.9 MMOL/L (24-32); TOTAL PROTEIN 6.9 G/DL (6.4-8.2); eGFR 71 ML/MIN
[2019-07-25] MEDS ORDERED: ondansetron 4mg rapidly disintigrating tab PO ONE (20:25)
[2019-07-25] MEDS ORDERED: pantoprazole 40 MG vial IV ONE (20:45)
[2019-07-25] MEDS ORDERED: iohexol 300mg/ml 100ml inj. ONE (20:48)
[2019-07-25] MEDS ORDERED: MIRT7.5T11 PO (21:34)
[2019-07-25] MEDS ORDERED: RIFA550T PO (21:36)
[2019-07-25] MEDS ORDERED: ONDA4TAB11 PO (21:36)
[2019-07-25] MEDS: pantoprazole 40MG/NS 100ML BAG 100 ML IV SCH (21:50)
[2019-07-26] VITALS (10 sets, daily range): BP systolic 93–129; BP diastolic 57–73
[2019-07-26] MEDS ORDERED: magnesium 4gm in 100ml NS 100 ML IV PRN (00:10)
[2019-07-26] MEDS ORDERED: magnesium Cl slow-release 64mg tablet PO PRN (00:10)
[2019-07-26] MEDS ORDERED: magnesium 2GM in 50ml NS 50 ML IV PRN (00:10)
[2019-07-26] MEDS ORDERED: potassium Cl 20 mEq SR tablet PO PRN ×2 (00:10)
[2019-07-26] MEDS ORDERED: ondansetron/PF 4mg/2ml inj IV PRN (00:10)
[2019-07-26] MEDS ORDERED: potassium CL 10mEq/100ml bag 100 ML IV PRN ×2 (00:10)
[2019-07-26] MEDS ORDERED: dextrose 50%-water 50ml dispensing syringe IV PRN ×2 (00:15)
[2019-07-26] MEDS ORDERED: glucagon, human recombinant 1mg kit SUBCUT PRN (00:15)
[2019-07-26] MEDS ORDERED: MESSAGE TO PHARMACY PO ONE (00:15)
[2019-07-26] MEDS ORDERED: dextrose ORAL solution 15 GM/59 ML bottle PO PRN ×2 (00:15)
[2019-07-26] MEDS: pantoprazole 40MG/NS 100ML BAG 100 ML IV SCH ×5 (01:00→22:30)
--- NOTE | 2019-07-26 04:53 | NUR ---
Patient in room PCU 3016. I have received report from Pj BULLOCK and had the opportunity to ask questions and assume patient care.
--- NOTE | 2019-07-26 05:05 | NUR ---
Page Sent promotional table spacer PAGER ID: [phone] MESSAGE: Margaux Morse [id number] just brought up from ED here for cirrhosis/hematemesis has a 10/10 stomach pain. she has nothing ordered. can she have anything? Julieta [phone]
[2019-07-26] MEDS ORDERED: HYDROmorphone inj. 0.5 MG/0.5 ML DISP.SYRIN IV ONE (05:10)
--- NOTE | 2019-07-26 05:56 | NUR ---
unable to dart patient due to time.
--- NOTE | 2019-07-26 06:17 | NUR ---
Problems reprioritized. Patient report given, questions answered & plan of care reviewed with Ariella RN.
--- NOTE | 2019-07-26 06:20 | NUR ---
Patient in room PCU 3016. I have received report from KOBE Rendon and had the opportunity to ask questions and assume patient care.
[2019-07-26 06:36] LABS: HEMOGLOBIN 7.1 g/dl (12.0-16.0); MEAN CORPUSCULAR HEMOGLOBIN 24.5 PG (27.0-31.0); MEAN CORPUSCULAR HGB CONC 33.1 g/dL (33.0-36.5); MEAN CORPUSCULAR VOLUME 73.9 FL (78-98); PLATELET COUNT 129 X10'3 (140-440); RED CELL DISTRIBUTION WIDTH 17.9 % (11.5-14.5); WHITE BLOOD COUNT 3.7 X10'3 (4.5-11.0)
[2019-07-26 06:43] LABS: HEMATOCRIT 21.4 % (35.0-45.0)
[2019-07-26 06:59] LABS: % IRON SATURATION 6 % (11-46); IRON 17 UG/DL (49-151); TOTAL IRON BINDING CAPACITY 277 UG/DL (259-388)
[2019-07-26] MEDS: K and/or MAG REPLACEMENT MC SCH ×2 (08:00→20:00)
[2019-07-26] MEDS ORDERED: pantoprazole 40 MG vial IV SCH (08:00)
--- NOTE | 2019-07-26 08:00 | NUR ---
Notified Dr. Carmen of patient critical low Hct of 21.4 and Hgb of 7.1. states he will look at her case and get back to nurse-no further orders at this time.
--- NOTE | 2019-07-26 09:10 | NUR ---
Patient was given regular tray and snacks 2hours before blood glucose assessment. Blood sugar was 249. Dr. Sanon would like to keep her NPO. Will recheck her blood glucose at 1200.
[2019-07-26] MEDS ORDERED: HYDROmorphone inj. 0.5 MG/0.5 ML DISP.SYRIN IV PRN (09:25)
[2019-07-26] MEDS ORDERED: octreotide 100mcg/1 ml ampule SQ ONE (09:25)
[2019-07-26] MEDS: octreotide inj. 500 MCG in normal saline 100ml IV soln 100 ML IV SCH (09:25)
[2019-07-26] MEDS: ceFAZolin 1GM/D5W- ADD-VANTAGE 50 ML IV SCH ×3 (09:30→23:53)
[2019-07-26] MEDS: HYDROmorphone 1 mg/ml syringe IV PRN ×3 (09:39→22:09)
--- NOTE | 2019-07-26 09:45 | NUR ---
Dr. Sanon notified of patient's IV access in abdomen-MD paging Dr. Cerna for central line for access for protonix drip and other IV injection medications.
[2019-07-26] MEDS ORDERED: octreotide 100mcg/1 ml ampule IV ONE (09:50)
[2019-07-26] MEDS ORDERED: octreotide inj. 500 MCG in normal saline 100ml IV soln 100 ML IV SCH (09:50)
[2019-07-26] MEDS ORDERED: LIDOcaine 1% W/epiNEPHrine 1:200,000 10ml vial IJ ONE (10:45)
[2019-07-26] MEDS ORDERED: LIDOcaine Viscous 15ml cup ONE (11:20)
[2019-07-26] MEDS ORDERED: MIDAZolam 5mg/5ml vial ONE (11:20)
[2019-07-26] MEDS ORDERED: fentaNYL/PF 50MCG/1 ML 2ML syringe ONE (11:20)
--- NOTE | 2019-07-26 11:52 | NUR ---
CENTRAL LINE XRAY REVIEWED BY DR JACKSON TO BE IN MID SVC AND OK TO USE.
--- NOTE | 2019-07-26 12:10 | NUR ---
Patient left for GI lab, notified GI KOBE Robertson that patient, although stated did not eat breakfast, did eat breakfast. GI RN states she will notify Dr. Sheehan. Will check blood glucose when patient arrives back from GI lab.
[2019-07-26] MEDS ORDERED: PEG 3350/Na sulf,bicarb,Cl/KCl oral sol 4 liter bottle PO ONE (14:15)
--- NOTE | 2019-07-26 15:00 | NUR ---
Patient in GI lab for 1500 vitals for endoscopy. will reassess after pt back from procedure.
--- NOTE | 2019-07-26 15:45 | NUR ---
Patient back from GI lab, checked blood glucose upon arrival and BG 174, post procedure vitals started and VSS. Patient reports minimal pain will continue to monitor.
--- NOTE | 2019-07-26 18:56 | NUR ---
Problems reprioritized. Patient report given, questions answered & plan of care reviewed with KOBE Aguirre.
[2019-07-26] MEDS: insulin glargine (Lantus) pen - multi-dose SQ SCH (21:00)
[2019-07-27 02:00] VITALS: BP 112/68
[2019-07-27] MEDS: HYDROmorphone 1 mg/ml syringe IV PRN ×4 (02:38→20:50)
[2019-07-27] MEDS: pantoprazole 40MG/NS 100ML BAG 100 ML IV SCH ×4 (02:49→16:19)
--- NOTE | 2019-07-27 03:55 | NUR ---
Patient in room PCU 3016. I have received report from KOBE Krishnan from Med/Surg and had the opportunity to ask questions and assume patient care.
--- NOTE | 2019-07-27 03:56 | NUR ---
Blood sugar of 249@0700 but handoff nurse said the patient was given a sandwich right before her shift started. Handoff nurse also said the noon blood sugar wasn't taken because patient was off the floor and at 1700 it was 175. The patient did technically meet protocol, but since the blood sugar @0700 was taken right after eating I did not count it as met and cover the sugars based on my judgement and nursing critical thinking skills. Also, the BS was 235@2100, but the 2100 sugar is not counted to first start someone on protocol.
[2019-07-27] MEDS: octreotide inj. 500 MCG in normal saline 100ml IV soln 100 ML IV SCH (05:18)
[2019-07-27 06:13] LABS: ALBUMIN 2.5 G/DL (3.4-5.0); ANION GAP 3 (8-16); BLOOD UREA NITROGEN 19 MG/DL (7-18); BUN/CREATININE RATIO 23.8 (6.6-38.0); CALCIUM 7.8 MG/DL (8.5-10.1); CHLORIDE 103 MMOL/L (99-107); GLUCOSE 145 MG/DL (70-104); POTASSIUM 3.8 MMOL/L (3.5-5.1); SODIUM 136 MMOL/L (135-145); TOTAL CARBON DIOXIDE 29.6 MMOL/L (24-32); eGFR 73 ML/MIN
[2019-07-27 06:14] LABS: BASOPHILS # (AUTO) 0.1 X10'3 (0-0.2); BASOPHILS % (AUTO) 1.7 % (0-1); EOSINOPHILS # (AUTO) 0.1 X10'3 (0-0.9); EOSINOPHILS % (AUTO) 3.5 % (0-6); HEMATOCRIT 22.7 % (35.0-45.0); HEMOGLOBIN 7.4 g/dl (12.0-16.0); LYMPHOCYTES # (AUTO) 0.7 X10'3 (1.1-4.8); LYMPHOCYTES % (AUTO) 23.7 % (21-51); MEAN CORPUSCULAR HEMOGLOBIN 24.1 PG (27.0-31.0); MEAN CORPUSCULAR HGB CONC 32.7 g/dL (33.0-36.5); MEAN CORPUSCULAR VOLUME 73.8 FL (78-98); MEAN PLATELET VOLUME 6.8 FL (7.4-10.4); MONOCYTES # (AUTO) 0.3 X10'3 (0-0.9); MONOCYTES % (AUTO) 8.6 % (2-12); NEUTROPHILS % (AUTO) 62.5 % (42-75); PLATELET COUNT 161 X10'3 (140-440); RED BLOOD COUNT 3.07 X10'6 (4.20-5.60); WHITE BLOOD COUNT 3.1 X10'3 (4.5-11.0)
--- NOTE | 2019-07-27 06:45 | NUR ---
Problems reprioritized. Patient report given, questions answered & plan of care reviewed with KOBE Steinberg.
[2019-07-27 07:00] VITALS: BP 105/63
[2019-07-27] MEDS: ceFAZolin 1GM/D5W- ADD-VANTAGE 50 ML IV SCH ×2 (07:31→16:20)
[2019-07-27] MEDS: K and/or MAG REPLACEMENT MC SCH ×2 (08:00→20:00)
--- NOTE | 2019-07-27 10:42 | NUR ---
Spoke with Dr. Sanon regarding patient and her lack of BM. Patient is to continue to drink the golytly prep for colonoscopy. Verbal order was obtained to bladder scan which showed 601mls post void. New verbal order obtained for welsh catheter for retention. Floey was placed, patient tolerated well with no issues. KUB was ordered for lack of bowel sounds, will continue to monitor.
--- NOTE | 2019-07-27 10:47 | NUR ---
PAGER ID: [phone] MESSAGE: Lito Mccartney. FYI: SO report is available. [place] [phone]
[2019-07-27 11:00] VITALS: BP 114/70
[2019-07-27 15:00] VITALS: BP 127/72
--- NOTE | 2019-07-27 15:48 | NUR ---
promotional table spacer PAGER ID: [phone] MESSAGE: Que 389Lito Skinner. Pt tele order has , do you want to continue this pt on tele? Maryan [phone]
--- NOTE | 2019-07-27 16:32 | NUR ---
PAGER ID: [phone] MESSAGE: Lito Mccartney. Pharmacy called and would like to know if the patient is supposed to be on sandostatin? Please clarify. Maryan [phone]
--- NOTE | 2019-07-27 18:32 | NUR ---
Problems reprioritized. Patient report given, questions answered & plan of care reviewed with Eduardo BULLOCK.
--- NOTE | 2019-07-27 18:59 | NUR ---
DM Consult: Pt admit w/ UGIB s/p EGD showing esophageal varices. Hx hep C cirrhosis and positive for meth prior admit in March. Hx TIPS shunt which is currently blocked pending IR consult per MD note. Pt advanced to clear liquids PO 75-100% meals. Hx DM A1C 9.8 up from 8.5 one year ago. Pt seen by RD for written/verbal DM ed w/ RD contact information provided. Pt reports is very hungry and wants to eat during RD visit. Pt had severe muscle/fat wasting present in addition to mild weakness/edema and meets severe malnutrition criteria at this time. MD notified. RD returned to provide written/verbal malnutrition ed. RD encouraged ONS options once diet advanced from clears. LBM 07/25 w/ abdominal pain noted as well as ascites +3 given hx per EMR. Will monitor for diet advancement and additional protein needs this admit. Rec: 1. advance diet per MD to carb controlled/heart healthy 2. monitor for ONS needs as diet advances 3. routine bowel care 4. weekly wts Addendum: 07/27/19 at [address] Amended: Links added.
[2019-07-27 19:00] VITALS: BP 140/86
[2019-07-27] MEDS: insulin glargine (Lantus) pen - multi-dose SQ SCH (20:37)
[2019-07-27] MEDS: pantoprazole 40 MG vial IV SCH (20:50)
--- NOTE | 2019-07-27 20:52 | NUR ---
elevated glucose at 254. pt just ate broth and jello. NPO at midnight. not starting protocol at this time.
[2019-07-27 22:37] VITALS: BP 114/77
[2019-07-28] VITALS (27 sets, daily range): BP systolic 103–149; BP diastolic 57–90
[2019-07-28] MEDS: ceFAZolin 1GM/D5W- ADD-VANTAGE 50 ML IV SCH ×3 (00:24→18:54)
[2019-07-28] MEDS: HYDROmorphone 1 mg/ml syringe IV PRN ×4 (02:37→21:02)
--- NOTE | 2019-07-28 06:29 | NUR ---
GI lab called - possible colonoscopy, paracentesis and TIPS procedure today. pt reminded of NPO status (except nay)
--- NOTE | 2019-07-28 06:29 | NUR ---
reported to days. blood drawn from CVL w/o difficulty. encouraged pt to drink golytly. pt taking sips
--- NOTE | 2019-07-28 06:31 | NUR ---
Patient in room PCU 3016. I have received report from Eduardo BULLOCK and had the opportunity to ask questions and assume patient care.
[2019-07-28 06:46] LABS: ALBUMIN 2.6 G/DL (3.4-5.0); ANION GAP 4 (8-16); BLOOD UREA NITROGEN 15 MG/DL (7-18); BUN/CREATININE RATIO 19.5 (6.6-38.0); CHLORIDE 104 MMOL/L (99-107); CREATININE 0.77 MG/DL (0.40-0.90); GLUCOSE 157 MG/DL (70-104); POTASSIUM 3.6 MMOL/L (3.5-5.1); SODIUM 137 MMOL/L (135-145); TOTAL CARBON DIOXIDE 28.9 MMOL/L (24-32); eGFR 77 ML/MIN
[2019-07-28] MEDS: K and/or MAG REPLACEMENT MC SCH ×2 (06:57→20:00)
[2019-07-28 07:04] LABS: BASOPHILS % (AUTO) 1.9 % (0-1); EOSINOPHILS # (AUTO) 0.1 X10'3 (0-0.9); EOSINOPHILS % (AUTO) 3.2 % (0-6); HEMATOCRIT 23.4 % (35.0-45.0); HEMOGLOBIN 7.6 g/dl (12.0-16.0); LYMPHOCYTES # (AUTO) 0.5 X10'3 (1.1-4.8); LYMPHOCYTES % (AUTO) 21.7 % (21-51); MEAN CORPUSCULAR HEMOGLOBIN 24.1 PG (27.0-31.0); MEAN CORPUSCULAR HGB CONC 32.5 g/dL (33.0-36.5); MEAN CORPUSCULAR VOLUME 74.3 FL (78-98); MEAN PLATELET VOLUME 6.6 FL (7.4-10.4); MONOCYTES # (AUTO) 0.2 X10'3 (0-0.9); NEUTROPHILS # (AUTO) 1.5 X10'3 (1.8-7.7); NEUTROPHILS % (AUTO) 63.2 % (42-75); PLATELET COUNT 168 X10'3 (140-440); RED BLOOD COUNT 3.15 X10'6 (4.20-5.60); RED CELL DISTRIBUTION WIDTH 18.1 % (11.5-14.5); WHITE BLOOD COUNT 2.4 X10'3 (4.5-11.0)
[2019-07-28] MEDS: pantoprazole 40 MG vial IV SCH ×2 (07:14→21:01)
[2019-07-28] MEDS ORDERED: LIDOcaine 1%/PF 5ML 10 MG/ML VIAL ONE (08:15)
[2019-07-28] MEDS ORDERED: iohexol 300mg/ml 100ml inj. ONE (08:15)
[2019-07-28] MEDS ORDERED: heparin 1,000 UNITS/NS 500ml 500 ML ONE (08:15)
[2019-07-28] MEDS ORDERED: diphenhydrAMINE 50 mg/ml inj ONE (08:35)
[2019-07-28] MEDS ORDERED: fentaNYL/PF 50MCG/1 ML 2ML syringe ONE ×3 (08:35→16:11)
[2019-07-28] MEDS ORDERED: ondansetron/PF 4mg/2ml inj ONE (09:04)
[2019-07-28] MEDS ORDERED: albumin (human) 25% 100 ML IV solution IV ONE (09:20)
[2019-07-28 09:24] LABS: PLATELET ESTIMATE NORMAL; TOTAL CELLS COUNTED 100
[2019-07-28 09:27] LABS: ANISOCYTOSIS 2+; MICROCYTOSIS 1+
[2019-07-28 09:48] LABS: GLUCOSE,BODY FLUID 164 MG/DL; LDH,BODY FLUID 138 U/L
[2019-07-28 10:18] LABS: TOTAL PROTEIN,BODY FLUID < 2.0 G/DL
--- NOTE | 2019-07-28 11:13 | NUR ---
promotional table spacer PAGER ID: [phone] MESSAGE: Que [id number] Skinner. Patient has returned from angio from the paracentesis and would like to eat clear liquids, please advise. Maryan [phone]
--- NOTE | 2019-07-28 11:24 | NUR ---
Rm [id number], Lito. Pt needs darted, Thank you!
[2019-07-28 11:25] LABS: BF RBC COUNT 13400 /CU MM; BF WBC COUNT 28 /CU MM (0-1000); BFAPPEAR BLOODY; BFCOLOR RED; BFVOLUME 62 ML
[2019-07-28 11:26] LABS: LYMPHOCYTES,BODY FLUID 54 %; MONOCYTES,BODY FLUID 24 %; NEUTROPHILS,BODY FLUID 22 %
[2019-07-28] MEDS ORDERED: MIDAZolam 5mg/5ml vial ONE (16:11)
--- NOTE | 2019-07-28 18:31 | NUR ---
Problems reprioritized. Patient report given, questions answered & plan of care reviewed with Maureen BULLOCK.
[2019-07-28] MEDS: insulin Lispro (HumaLOG) vial - multi-dose SQ SCH (19:58)
[2019-07-28] MEDS: insulin glargine (Lantus) pen - multi-dose SQ SCH (21:00)
--- NOTE | 2019-07-28 23:00 | NUR ---
bladder scanned the pt which displyed 689mL of urine in the bladder, will put welsh back in pt per MD orders
[2019-07-29] VITALS (7 sets, daily range): BP systolic 112–144; BP diastolic 64–76
[2019-07-29] MEDS: ceFAZolin 1GM/D5W- ADD-VANTAGE 50 ML IV SCH ×4 (00:51→23:40)
[2019-07-29] MEDS: HYDROmorphone 1 mg/ml syringe IV PRN ×5 (03:43→23:40)
--- NOTE | 2019-07-29 06:00 | NUR ---
Problems reprioritized. Patient report given, questions answered & plan of care reviewed with Maryan Chong RN.
[2019-07-29 06:07] LABS: BASOPHILS % (AUTO) 1.6 % (0-1); EOSINOPHILS # (AUTO) 0.1 X10'3 (0-0.9); EOSINOPHILS % (AUTO) 3.1 % (0-6); HEMOGLOBIN 7.1 g/dl (12.0-16.0); LYMPHOCYTES # (AUTO) 0.6 X10'3 (1.1-4.8); LYMPHOCYTES % (AUTO) 28.8 % (21-51); MEAN CORPUSCULAR HGB CONC 32.4 g/dL (33.0-36.5); MEAN PLATELET VOLUME 6.4 FL (7.4-10.4); MONOCYTES # (AUTO) 0.2 X10'3 (0-0.9); MONOCYTES % (AUTO) 9.2 % (2-12); NEUTROPHILS # (AUTO) 1.3 X10'3 (1.8-7.7); NEUTROPHILS % (AUTO) 57.3 % (42-75); PLATELET COUNT 132 X10'3 (140-440); RED BLOOD COUNT 2.97 X10'6 (4.20-5.60); RED CELL DISTRIBUTION WIDTH 17.8 % (11.5-14.5); WHITE BLOOD COUNT 2.3 X10'3 (4.5-11.0)
[2019-07-29 06:14] LABS: ANION GAP 6 (8-16); BLOOD UREA NITROGEN 10 MG/DL (7-18); BUN/CREATININE RATIO 13.3 (6.6-38.0); CHLORIDE 103 MMOL/L (99-107); CREATININE 0.75 MG/DL (0.40-0.90); GLUCOSE 99 MG/DL (70-104); POTASSIUM 3.3 MMOL/L (3.5-5.1); SODIUM 137 MMOL/L (135-145); TOTAL CARBON DIOXIDE 28.3 MMOL/L (24-32)
[2019-07-29 06:15] LABS: ALBUMIN 2.5 G/DL (3.4-5.0); CALCIUM 7.4 MG/DL (8.5-10.1); MAGNESIUM 1.8 MG/DL (1.5-2.4); eGFR 79 ML/MIN
[2019-07-29 07:06] LABS: ANISOCYTOSIS 1+; HYPOCHROMASIA 1+; MICROCYTOSIS 1+; PLATELET ESTIMATE DECREASED; TOTAL CELLS COUNTED 100
[2019-07-29] MEDS: K and/or MAG REPLACEMENT MC SCH ×2 (08:00→20:00)
[2019-07-29] MEDS: pantoprazole 40 MG vial IV SCH ×2 (08:49→21:01)
[2019-07-29] MEDS ORDERED: potassium CL 10mEq/100ml bag 100 ML IV PRN (09:10)
[2019-07-29] MEDS ORDERED: potassium Cl 20 mEq SR tablet PO PRN (09:10)
[2019-07-29] MEDS ORDERED: magnesium Cl slow-release 64mg tablet PO PRN (09:10)
[2019-07-29] MEDS ORDERED: magnesium 4gm in 100ml NS 100 ML IV PRN (09:10)
--- NOTE | 2019-07-29 09:10 | NUR ---
promotional table spacer PAGER ID: [phone] MESSAGE: Que [id number]. Pt c/o 05/15 upper inner thigh pain and tightness. Please advise. Maryan [phone]
[2019-07-29] MEDS: potassium Cl 20 mEq SR tablet PO PRN (10:58)
[2019-07-29] MEDS: lactulose 20gm/30ml cup PO SCH ×3 (10:58→20:00)
--- NOTE | 2019-07-29 11:19 | NUR ---
4700D, Lito. Pt has new order for vascular study, Thank you. Paged for vascular study
--- NOTE | 2019-07-29 13:15 | NUR ---
Pt c/o pain in abdomen and RLE 9/10, pain meds administered per MD order.
--- NOTE | 2019-07-29 13:19 | NUR ---
Patient was given apple juice and crackers right before her blood glucose check. The patient had a blood glucose of 250 due to these factors, I will wait to see what the dinner blood sugar is before qualifying her for the protocol.
--- NOTE | 2019-07-29 15:14 | NUR ---
Reassessment: Pt advanced to carb controlled/heart healthy diet PO 75-100% meals meeting needs. Pt reported strong appetite during initial RD visit. S/p colonoscopy and polypectomy showing diverticulosis, colonic edema, rather than neoplasia, and colon polyp which was removed per MD note. LBM 07/28. Receiving Fe for anemia. Will continue to monitor. Rec: 1. continue carb controlled/heart healthy diet per MD 2. monitor for ONS needs 3. routine bowel care 4. weekly wts Addendum: 07/29/19 at [address] Amended: Links added.
--- NOTE | 2019-07-29 18:30 | NUR ---
Problems reprioritized. Patient report given, questions answered & plan of care reviewed with Maureen BULLOCK. patient stable at transfer of care.
[2019-07-29] MEDS: iron sucrose complex injection 200 MG in normal saline 100ml IV soln 100 ML IV SCH (18:50)
[2019-07-29] MEDS: insulin Lispro (HumaLOG) vial - multi-dose SQ SCH (20:00)
[2019-07-29] MEDS: insulin glargine (Lantus) pen - multi-dose SQ SCH (21:00)
--- NOTE | 2019-07-29 23:30 | NUR ---
bladder scanned pt and more than 999ML of urine retained in bladder, will put welsh back in pt per MD order, will continue to monitor pt
[2019-07-30] MEDS: potassium Cl 20 mEq SR tablet PO PRN ×2 (01:04→05:21)
[2019-07-30] MEDS: lactulose 20gm/30ml cup PO SCH ×5 (01:04→19:43)
[2019-07-30 02:00] VITALS: BP 124/69
--- NOTE | 2019-07-30 03:30 | NUR ---
pt requested for her lactulose, undid nonadmit for 0200 administration of this medication and administered the medication at this time
[2019-07-30] MEDS: HYDROmorphone 1 mg/ml syringe IV PRN ×2 (05:24→15:31)
[2019-07-30 06:20] LABS: BASOPHILS % (AUTO) 1.2 % (0-1); EOSINOPHILS # (AUTO) 0.1 X10'3 (0-0.9); EOSINOPHILS % (AUTO) 2.5 % (0-6); HEMATOCRIT 24.1 % (35.0-45.0); HEMOGLOBIN 7.9 g/dl (12.0-16.0); LYMPHOCYTES % (AUTO) 24.7 % (21-51); MEAN CORPUSCULAR HEMOGLOBIN 24.2 PG (27.0-31.0); MEAN CORPUSCULAR HGB CONC 32.7 g/dL (33.0-36.5); MEAN PLATELET VOLUME 6.6 FL (7.4-10.4); MONOCYTES # (AUTO) 0.3 X10'3 (0-0.9); NEUTROPHILS # (AUTO) 2.6 X10'3 (1.8-7.7); NEUTROPHILS % (AUTO) 63.6 % (42-75); PLATELET COUNT 140 X10'3 (140-440); RED BLOOD COUNT 3.25 X10'6 (4.20-5.60); RED CELL DISTRIBUTION WIDTH 17.5 % (11.5-14.5)
--- NOTE | 2019-07-30 06:30 | NUR ---
Patient in room U 3016. I have received report from KOBE Reddy and had the opportunity to ask questions and assume patient care. Patient awake and sitting up in bed, and in no acute distress.
[2019-07-30 06:34] LABS: ALBUMIN 2.6 G/DL (3.4-5.0); ANION GAP 2 (8-16); BLOOD UREA NITROGEN 12 MG/DL (7-18); BUN/CREATININE RATIO 16.4 (6.6-38.0); CALCIUM 7.9 MG/DL (8.5-10.1); CHLORIDE 105 MMOL/L (99-107); CREATININE 0.73 MG/DL (0.40-0.90); GLUCOSE 147 MG/DL (70-104); MAGNESIUM 1.9 MG/DL (1.5-2.4); POTASSIUM 4.6 MMOL/L (3.5-5.1); SODIUM 137 MMOL/L (135-145); TOTAL CARBON DIOXIDE 29.9 MMOL/L (24-32); eGFR 82 ML/MIN
--- NOTE | 2019-07-30 06:43 | NUR ---
Problems reprioritized. Patient report given, questions answered & plan of care reviewed with Anh Blandon.
[2019-07-30 07:00] VITALS: BP 145/58
[2019-07-30] MEDS: K and/or MAG REPLACEMENT MC SCH ×2 (08:00→20:00)
[2019-07-30] MEDS: pantoprazole 40 MG vial IV SCH (08:01)
[2019-07-30] MEDS: iron sucrose complex injection 200 MG in normal saline 100ml IV soln 100 ML IV SCH (08:04)
[2019-07-30] MEDS: insulin Lispro (HumaLOG) vial - multi-dose SQ SCH ×3 (08:23→19:59)
[2019-07-30 11:00] VITALS: BP 161/92
[2019-07-30] MEDS: ceFAZolin 1GM/D5W- ADD-VANTAGE 50 ML IV SCH ×2 (11:18→17:21)
--- NOTE | 2019-07-30 13:42 | NUR ---
Paged Dr. Walker regarding patient being able to void in commode after Ren removal. PAGER ID: [phone] MESSAGE: [id number]. Margaux Morse. Voided in commode. Thank you. Anh BULLOCK x [phone]
--- NOTE | 2019-07-30 14:23 | NUR ---
Paged Dr. Walker with post void residuals from bladder scan. PAGER ID: [phone] MESSAGE: [id number]. Margaux Morse. 520mL post void from bladder scan. Thank you. Anh BULLOCK x [phone]
[2019-07-30] MEDS ORDERED: hydrocortisone acetate 25mg rectal suppository RC PRN (14:30)
[2019-07-30] MEDS: tamsulosin 0.4mg capsule PO SCH (14:42)
[2019-07-30 15:00] VITALS: BP 139/69
--- NOTE | 2019-07-30 15:49 | NUR ---
Per Primary RN request, paged to see if he wants to change pt from IV pain management to PO. ----- PAGER ID: [phone] MESSAGE: AshutoshA Sixto Morse. Would you like to change IV Dilaudid to a PO as she will likely discharge soon? Anabella Kamara [phone] ----- Received okay to change IV Dilaudid to patient's home pain medication regimen of 30mg PO Morphine Q4H.
--- NOTE | 2019-07-30 18:40 | NUR ---
Problems reprioritized. Patient report given, questions answered & plan of care reviewed with KOBE Oneal. Patient stable at transfer of care.
[2019-07-30 19:00] VITALS: BP 116/69
--- NOTE | 2019-07-30 19:25 | NUR ---
Patient in room PCU 3016. I have received report from Anh BULLOCK and had the opportunity to ask questions and assume patient care.
[2019-07-30] MEDS: pantoprazole 40mg Tablet.DR PO SCH (19:43)
[2019-07-30] MEDS: phenazopyridine 100mg tablet PO SCH (19:43)
[2019-07-30] MEDS: morphine IR (immed. release) 30mg tablet PO PRN (20:41)
[2019-07-30] MEDS: insulin glargine (Lantus) pen - multi-dose SQ SCH (22:17)
[2019-07-30 23:00] VITALS: BP 108/61
[2019-07-31] VITALS (13 sets, daily range): BP systolic 106–141; BP diastolic 58–83
[2019-07-31] MEDS: ceFAZolin 1GM/D5W- ADD-VANTAGE 50 ML IV SCH ×3 (00:17→17:03)
[2019-07-31] MEDS: morphine IR (immed. release) 30mg tablet PO PRN ×4 (01:07→19:40)
[2019-07-31] MEDS: lactulose 20gm/30ml cup PO SCH ×4 (02:23→19:43)
[2019-07-31 04:49] LABS: BASOPHILS # (AUTO) 0.1 X10'3 (0-0.2); BASOPHILS % (AUTO) 1.2 % (0-1); EOSINOPHILS # (AUTO) 0.1 X10'3 (0-0.9); EOSINOPHILS % (AUTO) 2.2 % (0-6); LYMPHOCYTES % (AUTO) 20.7 % (21-51); MEAN CORPUSCULAR HEMOGLOBIN 24.1 PG (27.0-31.0); MEAN CORPUSCULAR HGB CONC 32.2 g/dL (33.0-36.5); MEAN CORPUSCULAR VOLUME 74.6 FL (78-98); MEAN PLATELET VOLUME 6.7 FL (7.4-10.4); MONOCYTES # (AUTO) 0.3 X10'3 (0-0.9); MONOCYTES % (AUTO) 5.7 % (2-12); NEUTROPHILS # (AUTO) 3.4 X10'3 (1.8-7.7); NEUTROPHILS % (AUTO) 70.2 % (42-75); PLATELET COUNT 114 X10'3 (140-440); RED BLOOD COUNT 2.79 X10'6 (4.20-5.60); RED CELL DISTRIBUTION WIDTH 17.5 % (11.5-14.5); WHITE BLOOD COUNT 4.8 X10'3 (4.5-11.0)
--- NOTE | 2019-07-31 04:50 | NUR ---
Spoke with Dr Scherer in regards to patients HGB being 6.7 and Hematocrit 20.8 MD wants repeat CBC at 0800.
[2019-07-31 04:53] LABS: HEMOGLOBIN 6.7 g/dl (12.0-16.0)
[2019-07-31 04:54] LABS: HEMATOCRIT 20.8 % (35.0-45.0)
[2019-07-31 04:57] LABS: ALBUMIN 2.5 G/DL (3.4-5.0); ANION GAP 3 (8-16); BLOOD UREA NITROGEN 14 MG/DL (7-18); BUN/CREATININE RATIO 16.1 (6.6-38.0); CALCIUM 7.6 MG/DL (8.5-10.1); CHLORIDE 103 MMOL/L (99-107); CREATININE 0.87 MG/DL (0.40-0.90); GLUCOSE 195 MG/DL (70-104); MAGNESIUM 1.9 MG/DL (1.5-2.4); POTASSIUM 4.4 MMOL/L (3.5-5.1); SODIUM 134 MMOL/L (135-145); TOTAL CARBON DIOXIDE 28.5 MMOL/L (24-32); eGFR 67 ML/MIN
--- NOTE | 2019-07-31 06:17 | NUR ---
Problems reprioritized. Patient report given, questions answered & plan of care reviewed with Anh Blandon .
--- NOTE | 2019-07-31 06:20 | NUR ---
Patient in room PCU 3016. I have received report from KOBE Oneal and had the opportunity to ask questions and assume patient care. Patient asleep in bed and in no acute distress.
[2019-07-31] MEDS: K and/or MAG REPLACEMENT MC SCH ×2 (08:00→20:00)
[2019-07-31] MEDS: pantoprazole 40mg Tablet.DR PO SCH ×2 (08:04→19:40)
[2019-07-31] MEDS: tamsulosin 0.4mg capsule PO SCH (08:04)
[2019-07-31] MEDS: phenazopyridine 100mg tablet PO SCH ×3 (08:04→19:52)
[2019-07-31] MEDS: insulin Lispro (HumaLOG) vial - multi-dose SQ SCH ×2 (08:24→19:50)
[2019-07-31] MEDS: iron sucrose complex injection 200 MG in normal saline 100ml IV soln 100 ML IV SCH (09:04)
[2019-07-31 09:37] LABS: EOSINOPHILS # (AUTO) 0.1 X10'3 (0-0.9); EOSINOPHILS % (AUTO) 1.9 % (0-6); LYMPHOCYTES # (AUTO) 0.6 X10'3 (1.1-4.8); LYMPHOCYTES % (AUTO) 13.1 % (21-51); MEAN CORPUSCULAR HGB CONC 32.2 g/dL (33.0-36.5); MEAN CORPUSCULAR VOLUME 74.6 FL (78-98); MEAN PLATELET VOLUME 6.8 FL (7.4-10.4); MONOCYTES # (AUTO) 0.2 X10'3 (0-0.9); MONOCYTES % (AUTO) 3.7 % (2-12); NEUTROPHILS # (AUTO) 3.6 X10'3 (1.8-7.7); NEUTROPHILS % (AUTO) 80.3 % (42-75); PLATELET COUNT 121 X10'3 (140-440); RED BLOOD COUNT 2.84 X10'6 (4.20-5.60); RED CELL DISTRIBUTION WIDTH 17.4 % (11.5-14.5); WHITE BLOOD COUNT 4.5 X10'3 (4.5-11.0)
[2019-07-31 09:41] LABS: HEMATOCRIT 21.2 % (35.0-45.0); HEMOGLOBIN 6.8 g/dl (12.0-16.0)
--- NOTE | 2019-07-31 09:42 | NUR ---
Paged Dr. Walker regarding critical lab values of Hemoglobin and Hematocrit. PAGER ID: [phone] MESSAGE: [id number]. Margaux Mrose. Critical labs of Hgb 6.8, and Hct 21.2. Thank you. Anh BULLOCK x [phone]
--- NOTE | 2019-07-31 18:00 | NUR ---
Patient in room PCU 3016. I have received report from Anh BULLOCK and had the opportunity to ask questions and assume patient care.
--- NOTE | 2019-07-31 18:31 | NUR ---
Problems reprioritized. Patient report given, questions answered & plan of care reviewed with KOBE Patterson. Patient stable at transfer of care.
[2019-07-31] MEDS: insulin glargine (Lantus) pen - multi-dose SQ SCH (22:19)
[2019-08-01] MEDS: morphine IR (immed. release) 30mg tablet PO PRN ×5 (00:13→18:02)
[2019-08-01] MEDS: ceFAZolin 1GM/D5W- ADD-VANTAGE 50 ML IV SCH ×3 (00:24→16:01)
[2019-08-01 01:06] LABS: BASOPHILS % (AUTO) 0.4 % (0-1); EOSINOPHILS # (AUTO) 0.1 X10'3 (0-0.9); EOSINOPHILS % (AUTO) 1.3 % (0-6); HEMOGLOBIN 10.3 g/dl (12.0-16.0); LYMPHOCYTES % (AUTO) 9.6 % (21-51); MEAN CORPUSCULAR HGB CONC 33.2 g/dL (33.0-36.5); MEAN CORPUSCULAR VOLUME 78.1 FL (78-98); MEAN PLATELET VOLUME 6.9 FL (7.4-10.4); MONOCYTES # (AUTO) 0.4 X10'3 (0-0.9); MONOCYTES % (AUTO) 3.6 % (2-12); NEUTROPHILS # (AUTO) 8.7 X10'3 (1.8-7.7); NEUTROPHILS % (AUTO) 85.1 % (42-75); PLATELET COUNT 134 X10'3 (140-440); RED BLOOD COUNT 3.97 X10'6 (4.20-5.60); RED CELL DISTRIBUTION WIDTH 19.1 % (11.5-14.5); WHITE BLOOD COUNT 10.2 X10'3 (4.5-11.0)
[2019-08-01 01:18] LABS: ALBUMIN 2.8 G/DL (3.4-5.0); ANION GAP 1 (8-16); BLOOD UREA NITROGEN 17 MG/DL (7-18); BUN/CREATININE RATIO 22.1 (6.6-38.0); CALCIUM 8.3 MG/DL (8.5-10.1); CHLORIDE 104 MMOL/L (99-107); CREATININE 0.77 MG/DL (0.40-0.90); GLUCOSE 105 MG/DL (70-104); MAGNESIUM 2.1 MG/DL (1.5-2.4); POTASSIUM 4.7 MMOL/L (3.5-5.1); SODIUM 135 MMOL/L (135-145); TOTAL CARBON DIOXIDE 29.9 MMOL/L (24-32); eGFR 77 ML/MIN
[2019-08-01 02:00] VITALS: BP 134/76
[2019-08-01] MEDS: lactulose 20gm/30ml cup PO SCH ×3 (02:00→14:00)
--- NOTE | 2019-08-01 05:00 | NUR ---
END NOC NOTE Patient was able to rest a bit last night. Morphine PO was given for pain every four hours when available. Antibiotic has been administered. Patient able to reposition in bed and use the bedside commode independently. Patient refused to be bladder scanned tonight, also stated that she has been able to urinate. Will continue to monitor.
[2019-08-01 06:00] VITALS: BP 133/72
--- NOTE | 2019-08-01 06:36 | NUR ---
Problems reprioritized. Patient report given, questions answered & plan of care reviewed with Komal BULLOCK.
--- NOTE | 2019-08-01 06:37 | NUR ---
Patient in room PCU 3016. I have received report from KOBE Patterson and had the opportunity to ask questions and assume patient care.
[2019-08-01] MEDS: pantoprazole 40mg Tablet.DR PO SCH (07:42)
[2019-08-01] MEDS: tamsulosin 0.4mg capsule PO SCH (07:42)
[2019-08-01] MEDS: phenazopyridine 100mg tablet PO SCH ×2 (07:42→12:53)
[2019-08-01] MEDS: iron sucrose complex injection 200 MG in normal saline 100ml IV soln 100 ML IV SCH (07:43)
[2019-08-01] MEDS: K and/or MAG REPLACEMENT MC SCH (08:00)
[2019-08-01] MEDS: insulin Lispro (HumaLOG) vial - multi-dose SQ SCH ×2 (08:02→12:51)
[2019-08-01] MEDS: propranolol 10mg tablet PO SCH ×2 (09:56→12:54)
[2019-08-01 10:30] VITALS: BP 131/72
[2019-08-01 11:00] VITALS: BP 116/68
[2019-08-01 11:05] VITALS: BP 116/72
[2019-08-01] MEDS ORDERED: albumin (human) 25% 100 ML IV solution IV ONE (11:05)
[2019-08-01] MEDS ORDERED: LACT10SO32 PO (14:05)
[2019-08-01] MEDS ORDERED: PROP20TA6 PO (14:05)
[2019-08-01] MEDS ORDERED: tamsulosin capsule PO (14:05)
[2019-08-01] MEDS ORDERED: PANT40TA4 PO (14:05)
[2019-08-01 15:00] VITALS: BP 95/53
--- NOTE | 2019-08-01 18:00 | NUR ---
Patient in room PCU 3016. I have received report from Komal BULLOCK and had the opportunity to ask questions and assume patient care. Patient was discharged shortly after with all belongings and stable.
--- NOTE | 2019-08-01 19:13 | NUR ---
pt. d/c from facility at 1813. pt. was wheeled down to private car by staff accompanied by friend. pt. understood and signed all paperwork. pt. IJ was d/c with cannula intact. pt. understand to make f/u appointment with PCP. pt. left with all belongings.
[2019-08-04 15:46] LABS: OCCULT BLOOD STOOL POSITIVE (Neg)
== END 2019-08-01 18:00 | disposition home health service (06) ==
LOC: ER 18:22 → ED HOLD 07-26 00:14 → PCU 3S 07-26 04:30
PROVIDERS: ADMIT Internal Medicine; ATTEND Family Medicine
PROC: BW211ZZ Computerized Tomography (CT Scan) of Abdomen and Pelvis using Low Osmolar Contrast (ICD-10-PCS; 2019-07-25)
PROC: 0DJ08ZZ Inspection of Upper Intestinal Tract, Via Natural or Artificial Opening Endoscopic (ICD-10-PCS; principal; 2019-07-26)
PROC: 02HV33Z Insertion of Infusion Device into Superior Vena Cava, Percutaneous Approach (ICD-10-PCS; 2019-07-26)
PROC: 0DBL8ZX Excision of Transverse Colon, Via Natural or Artificial Opening Endoscopic, Diagnostic (ICD-10-PCS; 2019-07-28)
PROC: 0W9G3ZZ Drainage of Peritoneal Cavity, Percutaneous Approach (ICD-10-PCS; 2019-07-28)
PROC: B5131ZA Fluoroscopy of Right Jugular Veins using Low Osmolar Contrast, Guidance (ICD-10-PCS; 2019-07-28)
PROC: 30233N1 Transfusion of Nonautologous Red Blood Cells into Peripheral Vein, Percutaneous Approach (ICD-10-PCS; 2019-07-31)
PROC: 0W9G3ZZ Drainage of Peritoneal Cavity, Percutaneous Approach (ICD-10-PCS; 2019-08-01)
DX: K76.6 Portal hypertension (principal); I85.11 Secondary esophageal varices with bleeding; D61.818 Other pancytopenia; E11.42 Type 2 diabetes mellitus with diabetic polyneuropathy; L03.115 Cellulitis of right lower limb; E87.1 Hypo-osmolality and hyponatremia; L03.116 Cellulitis of left lower limb; K72.90 Hepatic failure, unspecified without coma; R18.8 Other ascites; B18.2 Chronic viral hepatitis C; D50.9 Iron deficiency anemia, unspecified; F17.210 Nicotine dependence, cigarettes, uncomplicated; K57.90 Diverticulosis of intestine, part unspecified, without perforation or abscess without bleeding; K74.60 Unspecified cirrhosis of liver; E86.0 Dehydration; I86.8 Varicose veins of other specified sites; K21.0 Gastro-esophageal reflux disease with esophagitis; F11.90 Opioid use, unspecified, uncomplicated; F15.90 Other stimulant use, unspecified, uncomplicated; R00.0 Tachycardia, unspecified; K31.89 Other diseases of stomach and duodenum; K63.5 Polyp of colon; K64.4 Residual hemorrhoidal skin tags; K64.8 Other hemorrhoids; N13.9 Obstructive and reflux uropathy, unspecified; Z79.4 Long term (current) use of insulin; Z87.11 Personal history of peptic ulcer disease; E87.6 Hypokalemia; Z79.899 Other long term (current) drug therapy
CPT/HCPCS: 36415; 37183; 43235; 45385; 49083; 71045; 74018; 74177; 80048; 80053; 82140; 82272; 82945; 82948; 83036; 83540; 83550; 83615; 83690; 83735; 84132; 84157; 85025; 85027; 85610; 86885; 86900; 86901; 86920; 87070; 87081; 89051; 93971; 96374; 97110; 97116; 97162; 99152; 99153; 99285; A4620; C1769; C1773; C1894; C9113; G0378; J0690; J1170; J1200; J1644; J1756; J1815; J2250; J2354; J2405; J3010; J7040; P9016; P9047; Q9967

== ENCOUNTER 2019-08-07 07:57 | Day surgery (SDC) | payer MEDICAID ==
[~2019-08-07] VITALS: Ht 152.4 cm; Wt 50.9 kg
[2019-08-07] VITALS (7 sets, daily range): BP systolic 133–156; BP diastolic 76–93
[~2019-08-07 07:57] MED LIST changes: -LACT10SO PO; +LACT10SO32 PO; +MIRT7.5T11 PO; +ONDA4TAB11 PO; +PANT40TA4 PO; -POTA10TA36 PO; +PROP20TA6 PO; -SPIR50TA5 PO; +tamsulosin capsule PO
[2019-08-07] MEDS ORDERED: ondansetron/PF 4mg/2ml inj IV ONE (09:00)
[2019-08-07] MEDS ORDERED: PROP40TA7 PO (09:14)
[2019-08-07] MEDS ORDERED: PANT-47 PO (09:14)
[2019-08-07] MEDS ORDERED: FLO0.4C PO (09:14)
[2019-08-07] MEDS ORDERED: LACT10SO7 PO (09:14)
[2019-08-07] MEDS ORDERED: albumin 25% 100mL bottle x 1 IV PRN (09:15)
[2019-08-07] MEDS ORDERED: normal saline 1000ml 1,000 ML IV PRN (09:15)
== END 2019-08-07 10:37 | disposition home or self-care (01) ==
LOC: SSTAY O 07:57
PROVIDERS: ATTEND Radiology Vascular & Interventional Radiology
DX: R18.8 Other ascites (principal); K74.60 Unspecified cirrhosis of liver; E11.9 Type 2 diabetes mellitus without complications; Z87.01 Personal history of pneumonia (recurrent); Z87.11 Personal history of peptic ulcer disease; Z86.19 Personal history of other infectious and parasitic diseases; F15.90 Other stimulant use, unspecified, uncomplicated; F11.90 Opioid use, unspecified, uncomplicated; Z79.899 Other long term (current) drug therapy; Z79.4 Long term (current) use of insulin
CPT/HCPCS: 49083; 76937; C1729; J2405; J7030; P9047

== ENCOUNTER 2019-08-19 07:52 | Day surgery (SDC) | payer MEDICAID ==
[~2019-08-19] VITALS: Ht 152.4 cm; Wt 55.5 kg
[2019-08-19] VITALS (7 sets, daily range): BP systolic 116–150; BP diastolic 67–81
[~2019-08-19 07:52] MED LIST changes: +FLO0.4C PO; -LACT10SO32 PO; +LACT10SO7 PO; +ONDA-103 PO; -ONDA4TAB11 PO; +PANT-47 PO; -PANT40TA4 PO; -PROP20TA6 PO; +PROP40TA7 PO; -tamsulosin capsule PO
[2019-08-19] MEDS ORDERED: albumin 25% 100mL bottle x 1 IV PRN (08:15)
[2019-08-19] MEDS ORDERED: normal saline 1000ml 1,000 ML IV PRN (08:15)
--- NOTE | 2019-08-19 10:30 | NUR ---
Bilateral legs dressed using Xeroform gauze and lightly wrapped with gauze roll from ankles to knees. Instructed to keep it in place till her appt with wound care and keep clean and dry.
--- NOTE | 2019-08-19 10:53 | NUR ---
Per outpatient wound care they should continue to see patient. Appointment made for this Aug 21, patient states she is in agreement and will be able to make the appointment.
--- NOTE | 2019-08-19 11:30 | NUR ---
Paracentesis catheter removed and site dressed with gauze and tape. 3750 ml of light bharathi clear fluid out. vss, denies lightheaded or dizzy. One bottle 25% 100 ml albumin given. Addendum: 08/19/19 at 1617 by Yanni Nino RN [id number] out from para
== END 2019-08-19 12:00 | disposition home or self-care (01) ==
LOC: SSTAY O 07:52
PROVIDERS: ATTEND Radiology Vascular & Interventional Radiology
DX: R18.8 Other ascites (principal); D50.9 Iron deficiency anemia, unspecified; E87.1 Hypo-osmolality and hyponatremia; E11.9 Type 2 diabetes mellitus without complications; K74.60 Unspecified cirrhosis of liver; Z87.01 Personal history of pneumonia (recurrent); Z87.11 Personal history of peptic ulcer disease; Z86.19 Personal history of other infectious and parasitic diseases; F11.90 Opioid use, unspecified, uncomplicated; F15.90 Other stimulant use, unspecified, uncomplicated; Z79.4 Long term (current) use of insulin; Z79.899 Other long term (current) drug therapy
CPT/HCPCS: 49083; 76937; C1729; J7030; P9047

== ENCOUNTER 2019-08-21 10:25 | Outpatient (CLI) | payer MEDICAID ==
[2019-08-21] MEDS ORDERED: silver sulfadiazine cream 50gm TP ONE (12:04)
== END 2019-08-21 12:45 | disposition home or self-care (01) ==
LOC: WOUND CARE 10:25 → EDSTATUS 10:30 → WOUND CARE 12:45
PROVIDERS: ATTEND Surgery
DX: L03.115 Cellulitis of right lower limb (principal); L03.116 Cellulitis of left lower limb; E11.42 Type 2 diabetes mellitus with diabetic polyneuropathy; K21.0 Gastro-esophageal reflux disease with esophagitis; K72.90 Hepatic failure, unspecified without coma; I86.8 Varicose veins of other specified sites; F11.90 Opioid use, unspecified, uncomplicated; F15.90 Other stimulant use, unspecified, uncomplicated; F17.210 Nicotine dependence, cigarettes, uncomplicated; Z86.010 Personal history of colon polyps; Z79.899 Other long term (current) drug therapy; Z90.49 Acquired absence of other specified parts of digestive tract; Z86.19 Personal history of other infectious and parasitic diseases; Z79.4 Long term (current) use of insulin
CPT/HCPCS: 36416; 82948; A6223; G0463; A4663; A6446

== ENCOUNTER 2019-08-26 08:27 | Day surgery (SDC) | payer MEDICAID ==
[2019-08-26] VITALS (8 sets, daily range): BP systolic 103–135; BP diastolic 54–86
[~2019-08-26] VITALS: Ht 154.9 cm; Wt 56.0 kg
[2019-08-26] MEDS ORDERED: normal saline 1000ml 1,000 ML IV PRN (08:55)
[2019-08-26] MEDS ORDERED: albumin 25% 100mL bottle x 1 IV PRN (08:55)
[2019-08-26] MEDS ORDERED: SPIR50TA5 PO (10:14)
== END 2019-08-26 12:15 | disposition home or self-care (01) ==
LOC: SSTAY O 08:27
PROVIDERS: ATTEND Radiology Diagnostic Radiology
DX: R18.8 Other ascites (principal); D50.9 Iron deficiency anemia, unspecified; E11.9 Type 2 diabetes mellitus without complications; K74.60 Unspecified cirrhosis of liver; E87.1 Hypo-osmolality and hyponatremia; Z87.11 Personal history of peptic ulcer disease; F15.90 Other stimulant use, unspecified, uncomplicated; F11.90 Opioid use, unspecified, uncomplicated; Z87.01 Personal history of pneumonia (recurrent); Z79.899 Other long term (current) drug therapy; Z79.4 Long term (current) use of insulin
CPT/HCPCS: 49083; C1729; J7030; P9047; 76937

== ENCOUNTER 2019-08-31 09:23 | Inpatient (IN) | payer MEDICAID ==
[2019-08-31] VITALS (16 sets, daily range): BP systolic 85–121; BP diastolic 45–91
[~2019-08-31] VITALS: Ht 154.9 cm; Wt 58.0 kg
[~2019-08-31 09:23] MED LIST changes: +SPIR50TA5 PO
[2019-08-31] MEDS ORDERED: ondansetron/PF 4mg/2ml inj IV ONE (09:40)
[2019-08-31] MEDS ORDERED: pantoprazole 40 MG vial IV ONE ×2 (09:40→12:25)
[2019-08-31] MEDS ORDERED: normal saline 1000ML IV soln IV ONE (09:40)
[2019-08-31] MEDS ORDERED: morphine 4 MG/ML inj SYRINge IV ONE (09:45)
[2019-08-31] MEDS ORDERED: octreotide inj. 1,250 MCG in normal saline 250ml IV soln 250 ML IV SCH (09:45)
[2019-08-31 10:23] LABS: BASOPHILS % (AUTO) 0.4 % (0-1); EOSINOPHILS # (AUTO) 0.1 X10'3 (0-0.9); EOSINOPHILS % (AUTO) 0.9 % (0-6); HEMATOCRIT 24.8 % (35.0-45.0); HEMOGLOBIN 8.2 g/dl (12.0-16.0); LYMPHOCYTES # (AUTO) 1.1 X10'3 (1.1-4.8); LYMPHOCYTES % (AUTO) 13.3 % (21-51); MEAN CORPUSCULAR HEMOGLOBIN 26.1 PG (27.0-31.0); MEAN CORPUSCULAR HGB CONC 32.9 g/dL (33.0-36.5); MEAN CORPUSCULAR VOLUME 79.3 FL (78-98); MONOCYTES # (AUTO) 0.4 X10'3 (0-0.9); MONOCYTES % (AUTO) 4.7 % (2-12); NEUTROPHILS # (AUTO) 6.5 X10'3 (1.8-7.7); NEUTROPHILS % (AUTO) 80.7 % (42-75); PLATELET COUNT 114 X10'3 (140-440); RED BLOOD COUNT 3.13 X10'6 (4.20-5.60); RED CELL DISTRIBUTION WIDTH 22.5 % (11.5-14.5); WHITE BLOOD COUNT 8.1 X10'3 (4.5-11.0)
[2019-08-31] MEDS ORDERED: CefTRIAXone/D5W-Rocephin 1gm 50 ML IV ONE (10:30)
[2019-08-31] MEDS ORDERED: MIDAZolam 5mg/5ml vial ONE (10:31)
[2019-08-31] MEDS ORDERED: fentaNYL/PF 50MCG/1 ML 2ML syringe ONE (10:31)
[2019-08-31] MEDS ORDERED: LIDOcaine Viscous 15ml cup ONE (10:31)
[2019-08-31 10:34] LABS: PARTIAL THROMBOPLASTIN TIME 30 SECONDS (22-32)
[2019-08-31 10:36] LABS: ALANINE AMINOTRANSFERASE 33 U/L (12-78); ALBUMIN 1.8 G/DL (3.4-5.0); ALBUMIN/GLOBULIN RATIO 0.4 (1.1-1.5); ALKALINE PHOSPHATASE 297 IU/L (46-116); ANION GAP 6 (8-16); ASPARTATE AMINO TRANSFERASE 53 U/L (10-37); BILIRUBIN,TOTAL 1.7 MG/DL (0.1-1.0); BLOOD UREA NITROGEN 50 MG/DL (7-18); BUN/CREATININE RATIO 37.6 (6.6-38.0); CHLORIDE 103 MMOL/L (99-107); CREATININE 1.33 MG/DL (0.40-0.90); GLUCOSE 144 MG/DL (70-104); POTASSIUM 4.9 MMOL/L (3.5-5.1); SODIUM 136 MMOL/L (135-145); TOTAL CARBON DIOXIDE 26.6 MMOL/L (24-32); TOTAL PROTEIN 6.1 G/DL (6.4-8.2); eGFR 41 ML/MIN
[2019-08-31 10:44] LABS: ANISOCYTOSIS 3+; HYPOCHROMASIA 1+; MICROCYTOSIS 1+; PLATELET ESTIMATE DECREASED; POLYCHROMASIA 1+
--- NOTE | 2019-08-31 10:52 | NUR ---
PT. OFF TO GI LAB WITH GI RN AND TECH.
[2019-08-31] MEDS ORDERED: pantoprazole 40MG/NS 100ML BAG 100 ML IV SCH (11:00)
--- NOTE | 2019-08-31 12:08 | NUR ---
BACK FROM GI LAB, RECEIED 1MG OF VERSED BY GI LAB.
[2019-08-31] MEDS ORDERED: magnesium hydroxide 30ml (MOM) UD suspension PO PRN (12:25)
[2019-08-31] MEDS ORDERED: potassium Cl 20mEq/100mL bag 100 ML IV PRN ×2 (12:25)
[2019-08-31] MEDS ORDERED: potassium Cl 20 mEq SR tablet PO PRN (12:25)
[2019-08-31] MEDS ORDERED: ondansetron/PF 4mg/2ml inj IV PRN (12:25)
[2019-08-31] MEDS ORDERED: potassium CL 10mEq/100ml bag 100 ML IV PRN ×2 (12:25)
[2019-08-31] MEDS: octreotide inj. 500 MCG in normal saline 100ml IV soln 100 ML IV SCH (13:54)
[2019-08-31] MEDS: normal saline 1000ml 1,000 ML IV SCH (14:48)
[2019-08-31] MEDS: pantoprazole 40MG/NS 100ML BAG 100 ML IV SCH ×2 (15:46→21:00)
[2019-08-31 16:33] LABS: CLARITY,URINE SLIGHTLY CLOUDY (Clear); COLOR,URINE YELLOW (Yellow); GLUCOSE, URINE NEGATIVE (Neg); KETONES,URINE NEGATIVE (Neg); LEUKOCYTE ESTERASE ,URINE SMALL (Neg); NITRITES, URINE NEGATIVE (Neg); OCCULT BLOOD,URINE NEGATIVE (Neg); PROTEIN,URINE NEGATIVE (Neg)
[2019-08-31 16:36] LABS: SODIUM,URINE RANDOM < 15 MEQ/L
--- NOTE | 2019-08-31 16:44 | NUR ---
NG tube placed in L nostril as ordered. Aspirated burgundy blood tinged output, positive placement per auscultation.
[2019-08-31 16:49] LABS: UA COLLECTION TYPE FOLEY CATH
[2019-08-31 16:51] LABS: BACTERIA,URINE 4+ /HPF (Neg); MUCUS STRANDS NONE SEEN /LPF (Neg); RBC,URINE NONE SEEN /HPF (0-2); SQUAMOUS EPITHELIAL CELL,UR FEW /LPF (FEW); WBC CLUMPS,URINE FEW /HPF (NEGATIVE); WBC,URINE 20-30 /HPF (0-4)
[2019-08-31] MEDS: lactulose 20gm/30ml cup PO SCH ×2 (16:56→22:27)
[2019-08-31 17:01] LABS: MEAN CORPUSCULAR HEMOGLOBIN 25.8 PG (27.0-31.0); MEAN CORPUSCULAR VOLUME 78.1 FL (78-98); MEAN PLATELET VOLUME 6.7 FL (7.4-10.4); PLATELET COUNT 86 X10'3 (140-440); RED BLOOD COUNT 2.58 X10'6 (4.20-5.60); RED CELL DISTRIBUTION WIDTH 22.7 % (11.5-14.5); WHITE BLOOD COUNT 7.5 X10'3 (4.5-11.0)
[2019-08-31 17:17] LABS: UA EOSINOPHILS NO EOS /HPF
[2019-08-31 17:19] LABS: HEMATOCRIT 20.1 % (35.0-45.0); HEMOGLOBIN 6.6 g/dl (12.0-16.0)
[2019-08-31] MEDS: docusate sod 100mg capsule PO SCH (20:00)
[2019-08-31] MEDS: sennosides/docusate sodium tablet PO SCH (21:00)
[2019-08-31 21:57] LABS: HEMATOCRIT 26.4 % (35.0-45.0); HEMOGLOBIN 8.9 g/dl (12.0-16.0); MEAN CORPUSCULAR HEMOGLOBIN 27.1 PG (27.0-31.0); MEAN CORPUSCULAR HGB CONC 33.7 g/dL (33.0-36.5); MEAN CORPUSCULAR VOLUME 80.3 FL (78-98); PLATELET COUNT 90 X10'3 (140-440); RED BLOOD COUNT 3.29 X10'6 (4.20-5.60); RED CELL DISTRIBUTION WIDTH 21.6 % (11.5-14.5); WHITE BLOOD COUNT 8.8 X10'3 (4.5-11.0)
[2019-08-31 22:19] LABS: PARTIAL THROMBOPLASTIN TIME 25 SECONDS (22-32)
[2019-09-01] VITALS (21 sets, daily range): BP systolic 104–146; BP diastolic 46–75
[2019-09-01] MEDS: pantoprazole 40MG/NS 100ML BAG 100 ML IV SCH ×3 (00:11→19:56)
[2019-09-01] MEDS: normal saline 1000ml 1,000 ML IV SCH ×2 (01:44→15:04)
[2019-09-01] MEDS: morphine 2 MG/ML inj. syringe IV PRN ×3 (04:26→21:45)
[2019-09-01] MEDS: lactulose 20gm/30ml cup PO SCH ×4 (04:33→19:47)
[2019-09-01 05:25] LABS: BASOPHILS % (AUTO) 0.2 % (0-1); EOSINOPHILS % (AUTO) 0.1 % (0-6); HEMATOCRIT 27.8 % (35.0-45.0); HEMOGLOBIN 9.4 g/dl (12.0-16.0); LYMPHOCYTES # (AUTO) 1.1 X10'3 (1.1-4.8); LYMPHOCYTES % (AUTO) 9.8 % (21-51); MEAN CORPUSCULAR HEMOGLOBIN 26.8 PG (27.0-31.0); MEAN CORPUSCULAR HGB CONC 33.6 g/dL (33.0-36.5); MEAN CORPUSCULAR VOLUME 79.7 FL (78-98); MONOCYTES # (AUTO) 0.7 X10'3 (0-0.9); MONOCYTES % (AUTO) 6.1 % (2-12); NEUTROPHILS # (AUTO) 9.8 X10'3 (1.8-7.7); NEUTROPHILS % (AUTO) 83.8 % (42-75); PLATELET COUNT 121 X10'3 (140-440); RED BLOOD COUNT 3.49 X10'6 (4.20-5.60); RED CELL DISTRIBUTION WIDTH 21.4 % (11.5-14.5); WHITE BLOOD COUNT 11.6 X10'3 (4.5-11.0)
[2019-09-01 05:36] LABS: ALANINE AMINOTRANSFERASE 36 U/L (12-78); ALBUMIN/GLOBULIN RATIO 0.5 (1.1-1.5); ALKALINE PHOSPHATASE 287 IU/L (46-116); ANION GAP 12 (8-16); ASPARTATE AMINO TRANSFERASE 70 U/L (10-37); BILIRUBIN,TOTAL 2.7 MG/DL (0.1-1.0); BLOOD UREA NITROGEN 56 MG/DL (7-18); BUN/CREATININE RATIO 41.5 (6.6-38.0); CALCIUM 7.8 MG/DL (8.5-10.1); CHLORIDE 105 MMOL/L (99-107); CREATININE 1.35 MG/DL (0.40-0.90); GLUCOSE 124 MG/DL (70-104); MAGNESIUM 1.9 MG/DL (1.5-2.4); PHOSPHORUS 3.7 MG/DL (2.3-4.5); POTASSIUM 4.7 MMOL/L (3.5-5.1); SODIUM 137 MMOL/L (135-145); TOTAL CARBON DIOXIDE 20.1 MMOL/L (24-32); TOTAL PROTEIN 6.3 G/DL (6.4-8.2); eGFR 40 ML/MIN
[2019-09-01 06:13] LABS: ANISOCYTOSIS 3+; BURR CELLS FEW; MICROCYTOSIS 1+; PLATELET ESTIMATE DECREASED; POLYCHROMASIA FEW
--- NOTE | 2019-09-01 06:25 | NUR ---
Problems reprioritized. Patient report given, questions answered & plan of care reviewed with KOBE Tabor.
--- NOTE | 2019-09-01 06:26 | NUR ---
Patient had 3 large sized liquid BM's of rust color.
--- NOTE | 2019-09-01 06:46 | NUR ---
PT BELONGINGS: pt clothing in pt belonging bag and home medications in [employer] bag placed in hand drawer in room. Addendum: 09/01/19 at 0653 by Leander Zayas RN PT BELONGINGS: pt clothing in pt belonging bag and home medications and black wallet in [employer] bag along with ID, debit card, and some change - placed in hand drawer in room.
[2019-09-01] MEDS: docusate sod 100mg capsule PO SCH ×2 (07:45→19:47)
[2019-09-01] MEDS: octreotide inj. 500 MCG in normal saline 100ml IV soln 100 ML IV SCH (07:47)
[2019-09-01 09:24] LABS: HEMATOCRIT 25.8 % (35.0-45.0); HEMOGLOBIN 8.7 g/dl (12.0-16.0); MEAN CORPUSCULAR HEMOGLOBIN 27.1 PG (27.0-31.0); MEAN CORPUSCULAR HGB CONC 33.8 g/dL (33.0-36.5); MEAN PLATELET VOLUME 6.6 FL (7.4-10.4); PLATELET COUNT 94 X10'3 (140-440); RED BLOOD COUNT 3.23 X10'6 (4.20-5.60); RED CELL DISTRIBUTION WIDTH 21.5 % (11.5-14.5); WHITE BLOOD COUNT 9.1 X10'3 (4.5-11.0)
[2019-09-01] MEDS ORDERED: pantoprazole 40MG/NS 100ML BAG 100 ML IV SCH (10:54)
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
--- NOTE | 2019-09-01 12:49 | NUR ---
Cheryl Jones, palliative RN who has been working with pt, is at bedside talking with social human services assistants and case worker. Cheryl states that pt has expressed wishes to make sister, Adry/Marie, to be main decision maker. drying tumbler operator with daughters in waiting room.
--- NOTE | 2019-09-01 13:30 | NUR ---
Family meeting with 2 daughters, [id number], Cheryl Jones (palliative RN who has been taking care of patient for ~1 year), rn social services, and Dr. Rey. Family agreed to make pt a DNAR.
[2019-09-01] MEDS ORDERED: FURO40TA4 PO (15:33)
[2019-09-01] MEDS ORDERED: SPIR100T5 PO (15:33)
[2019-09-01] MEDS ORDERED: MSC30T PO (15:33)
[2019-09-01] MEDS ORDERED: PROP20TA6 PO (15:33)
--- NOTE | 2019-09-01 16:19 | NUR ---
pt pulled out NGT, per Dr. Candido romero not to reinsert d/t bleeding risk
[2019-09-01] MEDS: octreotide 100mcg/1 ml ampule IV SCH (16:20)
--- NOTE | 2019-09-01 16:27 | NUR ---
Malnutrition consult, Patient visibly malnourished with visible fat and muscle wasting. History of liver cirrhosis and hepatitic C, weekly paracentesis, multiple admission with GI bleed per MD note. Currently on clear liquid diet, may need BSS prior to diet advancement will d/w MD at rounds. Ammonia elevated at 34. Failed TIPS procedure in past per MD note. Per physical assessment patient is obtunded and minimally responsive. Per SS note family considering comfort care. Current weight may reflect fluid weight with ascites, face and arms appear very cachetic. Appears to have weight gain rather than loss, likely weight gain is fluids. Will follow. Recommend: 1. recommend a BSS prior to diet advancement as patient is obtunded 2. weight per rx 3. monitor need for ONS when diet advanced Addendum: 09/01/19 at [address] Amended: Links added.
[2019-09-01 16:53] LABS: HEMATOCRIT 25.8 % (35.0-45.0); HEMOGLOBIN 8.8 g/dl (12.0-16.0); MEAN CORPUSCULAR HEMOGLOBIN 27.1 PG (27.0-31.0); MEAN CORPUSCULAR HGB CONC 33.9 g/dL (33.0-36.5); MEAN PLATELET VOLUME 6.5 FL (7.4-10.4); PLATELET COUNT 102 X10'3 (140-440); RED BLOOD COUNT 3.23 X10'6 (4.20-5.60); WHITE BLOOD COUNT 10.9 X10'3 (4.5-11.0)
--- NOTE | 2019-09-01 17:00 | NUR ---
Cheryl came by and dropped off POLST and incomplete advance directive.
--- NOTE | 2019-09-01 17:14 | NUR ---
PT BELONGINGS: DELFINO AND JESSY SENT HOME WITH SISTER, LISBETH/DENIA.
--- NOTE | 2019-09-01 18:46 | NUR ---
Patient in room CICU 2014. I have received report from Leander BULLOCK and had the opportunity to ask questions and assume patient care.
[2019-09-01] MEDS: sennosides/docusate sodium tablet PO SCH (19:47)
[2019-09-01 22:42] LABS: HEMATOCRIT 25.2 % (35.0-45.0); HEMOGLOBIN 8.6 g/dl (12.0-16.0); MEAN CORPUSCULAR HEMOGLOBIN 27.3 PG (27.0-31.0); MEAN CORPUSCULAR VOLUME 80.3 FL (78-98); MEAN PLATELET VOLUME 6.3 FL (7.4-10.4); PLATELET COUNT 89 X10'3 (140-440); RED BLOOD COUNT 3.14 X10'6 (4.20-5.60); RED CELL DISTRIBUTION WIDTH 21.4 % (11.5-14.5); WHITE BLOOD COUNT 9.7 X10'3 (4.5-11.0)
[2019-09-02] VITALS (16 sets, daily range): BP systolic 116–159; BP diastolic 35–84
[2019-09-02] MEDS: lactulose 20gm/30ml cup PO SCH ×4 (00:43→20:18)
[2019-09-02] MEDS: octreotide 100mcg/1 ml ampule IV SCH ×4 (01:18→23:50)
[2019-09-02] MEDS: morphine 2 MG/ML inj. syringe IV PRN ×2 (02:01→09:14)
[2019-09-02] MEDS: normal saline 1000ml 1,000 ML IV SCH (03:34)
[2019-09-02 04:02] LABS: BASOPHILS % (AUTO) 0.3 % (0-1); EOSINOPHILS % (AUTO) 0.1 % (0-6); HEMATOCRIT 25.2 % (35.0-45.0); HEMOGLOBIN 8.4 g/dl (12.0-16.0); LYMPHOCYTES # (AUTO) 0.9 X10'3 (1.1-4.8); LYMPHOCYTES % (AUTO) 8.1 % (21-51); MEAN CORPUSCULAR HGB CONC 33.4 g/dL (33.0-36.5); MEAN CORPUSCULAR VOLUME 80.7 FL (78-98); MEAN PLATELET VOLUME 6.2 FL (7.4-10.4); MONOCYTES # (AUTO) 0.8 X10'3 (0-0.9); MONOCYTES % (AUTO) 7.7 % (2-12); NEUTROPHILS # (AUTO) 8.8 X10'3 (1.8-7.7); NEUTROPHILS % (AUTO) 83.8 % (42-75); PLATELET COUNT 84 X10'3 (140-440); RED BLOOD COUNT 3.12 X10'6 (4.20-5.60); RED CELL DISTRIBUTION WIDTH 21.4 % (11.5-14.5); WHITE BLOOD COUNT 10.5 X10'3 (4.5-11.0)
[2019-09-02 04:17] LABS: ALANINE AMINOTRANSFERASE 37 U/L (12-78); ALBUMIN/GLOBULIN RATIO 0.5 (1.1-1.5); ALKALINE PHOSPHATASE 255 IU/L (46-116); ANION GAP 12 (8-16); ASPARTATE AMINO TRANSFERASE 72 U/L (10-37); BLOOD UREA NITROGEN 59 MG/DL (7-18); BUN/CREATININE RATIO 43.4 (6.6-38.0); CALCIUM 8.1 MG/DL (8.5-10.1); CHLORIDE 108 MMOL/L (99-107); CREATININE 1.36 MG/DL (0.40-0.90); GLUCOSE 148 MG/DL (70-104); PHOSPHORUS 4.1 MG/DL (2.3-4.5); POTASSIUM 3.9 MMOL/L (3.5-5.1); SODIUM 140 MMOL/L (135-145); eGFR 40 ML/MIN
[2019-09-02] MEDS ORDERED: morphine 2 MG/ML inj. syringe IV ONE (04:45)
[2019-09-02 05:15] LABS: ANISOCYTOSIS 2+; PLATELET ESTIMATE DECREASED
[2019-09-02] MEDS: morphine 4 MG/ML inj SYRINge IV PRN ×3 (05:59→19:24)
--- NOTE | 2019-09-02 06:14 | NUR ---
Problems reprioritized. Patient report given, questions answered & plan of care reviewed with Leander BULLOCK.
[2019-09-02] MEDS: pantoprazole 40MG/NS 100ML BAG 100 ML IV SCH ×2 (07:05→20:07)
[2019-09-02] MEDS: docusate sod 100mg capsule PO SCH ×2 (08:00→20:00)
[2019-09-02] MEDS: amoxicillin 250mg capsule PO SCH ×3 (09:44→23:55)
[2019-09-02 10:51] LABS: HEMATOCRIT 25.1 % (35.0-45.0); HEMOGLOBIN 8.3 g/dl (12.0-16.0); MEAN CORPUSCULAR HEMOGLOBIN 26.6 PG (27.0-31.0); MEAN CORPUSCULAR HGB CONC 32.9 g/dL (33.0-36.5); MEAN CORPUSCULAR VOLUME 80.7 FL (78-98); MEAN PLATELET VOLUME 6.4 FL (7.4-10.4); PLATELET COUNT 78 X10'3 (140-440); RED BLOOD COUNT 3.11 X10'6 (4.20-5.60); RED CELL DISTRIBUTION WIDTH 21.3 % (11.5-14.5); WHITE BLOOD COUNT 11.8 X10'3 (4.5-11.0)
[2019-09-02] MEDS ORDERED: albumin (human) 25% 100 ML IV solution IV ONE (11:45)
--- NOTE | 2019-09-02 12:38 | NUR ---
Reassessment: Pt with ally of 12, skin intact. Pt with 4+ severe abdominal ascites and 2+ BLE edema. Pt s/p paracentesis today, no documentation of quantity of fluid removed. Pt remains on clear liquid diet with 100% PO intake, not meeting nutrient needs given the nature of the diet. Pt currently AOx2, PO intake may fluctuate r/t decreased mentation. LBM 09/01. Pt pending transfer to medical floor per MD note. Will continue to monitor. Recommend: 1. recommend a BSS prior to diet advancement as patient is obtunded 2. weight per rx 3. monitor need for ONS when diet advanced 4. bowel care as needed Addendum: 09/02/19 at 1239 by Wing Maria Del Carmen PEREZ Amended: Links added. Addendum: 09/02/19 at [address] I have reviewed and agree with note by Order Desk Caller. Marielle Madison RD
--- NOTE | 2019-09-02 13:30 | NUR ---
pt transferred to 352 via wheelchair. Called report to KOBE Metzger. Home meds sent down to pharmacy. Pt clothing in pt belonging bag in new room. Sister, Adry, at bedside. VSS upon arrival, pt c/o overall pain upon transfer.
--- NOTE | 2019-09-02 13:35 | NUR ---
received report from KOBE Tabor in ICU. Patient arrived to the floor with RN assisting and with pt's sister, dAry. VSS will continue to monitor.
--- NOTE | 2019-09-02 13:49 | NUR ---
Nutrition consult: Pt malnutrition status addressed and triggered for severe malnutrition. See prior RD note for further details. Pending MAPPING EDITOR BSS at this time since advanced to clear liquids. Addendum: 09/02/19 at [address] Amended: Links added.
[2019-09-02] MEDS ORDERED: glucagon, human recombinant 1mg kit SUBCUT PRN (17:20)
[2019-09-02] MEDS ORDERED: dextrose 50%-water 50ml dispensing syringe IV PRN ×2 (17:20)
[2019-09-02] MEDS ORDERED: dextrose ORAL solution 15 GM/59 ML bottle PO PRN ×2 (17:20)
--- NOTE | 2019-09-02 17:23 | NUR ---
Critically high blood sugar of 416-notified Dr. Munoz and orders received to put on hyperglycemic protocol and change diet to Carb controlled clear liquid diet.
[2019-09-02 17:50] LABS: HEMATOCRIT 27.7 % (35.0-45.0); HEMOGLOBIN 9.1 g/dl (12.0-16.0); MEAN CORPUSCULAR HEMOGLOBIN 27.1 PG (27.0-31.0); MEAN CORPUSCULAR HGB CONC 32.6 g/dL (33.0-36.5); MEAN CORPUSCULAR VOLUME 82.9 FL (78-98); MEAN PLATELET VOLUME 6.4 FL (7.4-10.4); PLATELET COUNT 69 X10'3 (140-440); RED BLOOD COUNT 3.34 X10'6 (4.20-5.60); RED CELL DISTRIBUTION WIDTH 21.4 % (11.5-14.5); WHITE BLOOD COUNT 8.6 X10'3 (4.5-11.0)
[2019-09-02] MEDS: insulin Lispro (HumaLOG) vial - multi-dose SQ SCH ×2 (17:52→20:53)
--- NOTE | 2019-09-02 18:45 | NUR ---
Problems reprioritized. Patient report given, questions answered & plan of care reviewed with Faye Mckinney RN.
--- NOTE | 2019-09-02 18:50 | NUR ---
Patient in room [facility]A 352. I have received report from MILTON BULLOCK and had the opportunity to ask questions and assume patient care.
[2019-09-02] MEDS: morphine ER 15mg tablet PO SCH (20:18)
[2019-09-02] MEDS: sennosides/docusate sodium tablet PO SCH (20:19)
[2019-09-02] MEDS ORDERED: insulin glargine (Lantus) pen - multi-dose SQ SCH (21:00)
[2019-09-02 23:18] LABS: HEMATOCRIT 28.6 % (35.0-45.0); HEMOGLOBIN 9.3 g/dl (12.0-16.0); MEAN CORPUSCULAR HEMOGLOBIN 26.9 PG (27.0-31.0); MEAN CORPUSCULAR HGB CONC 32.7 g/dL (33.0-36.5); MEAN CORPUSCULAR VOLUME 82.4 FL (78-98); MEAN PLATELET VOLUME 6.4 FL (7.4-10.4); PLATELET COUNT 67 X10'3 (140-440); RED BLOOD COUNT 3.47 X10'6 (4.20-5.60); RED CELL DISTRIBUTION WIDTH 21.8 % (11.5-14.5); WHITE BLOOD COUNT 11.6 X10'3 (4.5-11.0)
[2019-09-02 23:35] LABS: PLATELET ESTIMATE DECREASED
[2019-09-02 23:36] LABS: ANISOCYTOSIS 3+
[2019-09-03] MEDS: lactulose 20gm/30ml cup PO SCH ×3 (02:00→20:33)
[2019-09-03 03:48] VITALS: BP 104/44
--- NOTE | 2019-09-03 06:30 | NUR ---
Problems reprioritized. Patient report given, questions answered & plan of care reviewed with MILTON RN.
--- NOTE | 2019-09-03 06:33 | NUR ---
Patient in room [facility]A 352. I have received report from Faye Mckinney RN and had the opportunity to ask questions and assume patient care.
[2019-09-03 07:57] LABS: BASOPHILS % (AUTO) 0.4 % (0-1); EOSINOPHILS # (AUTO) 0.2 X10'3 (0-0.9); EOSINOPHILS % (AUTO) 1.9 % (0-6); HEMOGLOBIN 7.9 g/dl (12.0-16.0); LYMPHOCYTES # (AUTO) 1.5 X10'3 (1.1-4.8); LYMPHOCYTES % (AUTO) 12.7 % (21-51); MEAN CORPUSCULAR HEMOGLOBIN 26.8 PG (27.0-31.0); MEAN CORPUSCULAR HGB CONC 33.1 g/dL (33.0-36.5); MEAN CORPUSCULAR VOLUME 81.1 FL (78-98); MEAN PLATELET VOLUME 6.6 FL (7.4-10.4); MONOCYTES # (AUTO) 0.6 X10'3 (0-0.9); MONOCYTES % (AUTO) 5.4 % (2-12); NEUTROPHILS # (AUTO) 9.4 X10'3 (1.8-7.7); NEUTROPHILS % (AUTO) 79.6 % (42-75); PLATELET COUNT 56 X10'3 (140-440); RED BLOOD COUNT 2.96 X10'6 (4.20-5.60); RED CELL DISTRIBUTION WIDTH 21.6 % (11.5-14.5); WHITE BLOOD COUNT 11.8 X10'3 (4.5-11.0)
[2019-09-03 08:00] VITALS: BP 83/53
[2019-09-03] MEDS: docusate sod 100mg capsule PO SCH ×2 (08:00→20:00)
[2019-09-03 08:10] LABS: ALANINE AMINOTRANSFERASE 37 U/L (12-78); ALBUMIN 2.4 G/DL (3.4-5.0); ALBUMIN/GLOBULIN RATIO 0.6 (1.1-1.5); ALKALINE PHOSPHATASE 218 IU/L (46-116); ANION GAP 9 (8-16); ASPARTATE AMINO TRANSFERASE 59 U/L (10-37); BILIRUBIN,TOTAL 1.7 MG/DL (0.1-1.0); BLOOD UREA NITROGEN 59 MG/DL (7-18); BUN/CREATININE RATIO 48.4 (6.6-38.0); CALCIUM 7.7 MG/DL (8.5-10.1); CHLORIDE 105 MMOL/L (99-107); CREATININE 1.22 MG/DL (0.40-0.90); MAGNESIUM 1.9 MG/DL (1.5-2.4); PHOSPHORUS 3.5 MG/DL (2.3-4.5); POTASSIUM 3.2 MMOL/L (3.5-5.1); SODIUM 138 MMOL/L (135-145); TOTAL CARBON DIOXIDE 24.1 MMOL/L (24-32); TOTAL PROTEIN 6.1 G/DL (6.4-8.2); eGFR 45 ML/MIN
[2019-09-03 08:11] LABS: GLUCOSE 46 MG/DL (70-104)
[2019-09-03 08:15] VITALS: BP 122/60
[2019-09-03 08:27] LABS: ANISOCYTOSIS 3+; HYPOCHROMASIA 1+; LARGE PLATELETS FEW; PLATELET ESTIMATE DECREASED; POLYCHROMASIA 1+
[2019-09-03] MEDS: morphine ER 15mg tablet PO SCH ×2 (08:47→20:33)
[2019-09-03] MEDS: amoxicillin 250mg capsule PO SCH ×3 (08:47→23:38)
[2019-09-03] MEDS: pantoprazole 40MG/NS 100ML BAG 100 ML IV SCH (08:48)
[2019-09-03] MEDS: potassium Cl 20 mEq SR tablet PO PRN ×3 (11:04→20:33)
[2019-09-03 12:09] VITALS: BP 132/71
--- NOTE | 2019-09-03 13:10 | NUR ---
DM consult: Pt documented with A1c of 7.5. Pt currently AOx1, not appropriate for education at this time. Pt diet upgraded to carb controlled pureed diet per ST recs, pending documentation of PO intake since diet advancement. LBM 09/02. Will continue to monitor. Recommend: 1. continue carb controlled, pureed diet per ST recs 2. weight per rx 3. monitor need for ONS 4. bowel care as needed Addendum: 09/03/19 at 1310 by Wing Maria Del Carmen PEREZ Amended: Links added. Addendum: 09/03/19 at [address] I have reviewed and agree with note by Education Research Analyst. Marielle Madison RD
[2019-09-03] MEDS: morphine 4 MG/ML inj SYRINge IV PRN ×3 (13:16→23:42)
[2019-09-03] MEDS: furosemide 40mg tablet PO SCH (14:42)
[2019-09-03 18:00] VITALS: BP 142/77
--- NOTE | 2019-09-03 18:41 | NUR ---
Problems reprioritized. Patient report given, questions answered & plan of care reviewed with KOBE Whelan.
--- NOTE | 2019-09-03 18:54 | NUR ---
Problems reprioritized. Patient report given, questions answered & plan of care reviewed with KOBE Whelan.
[2019-09-03] MEDS: insulin Lispro (HumaLOG) vial - multi-dose SQ SCH ×2 (19:01→22:04)
[2019-09-03] MEDS: sennosides/docusate sodium tablet PO SCH (20:12)
[2019-09-03] MEDS: lactobacillus rhamnosus 10,000 MMU CELLS/CAPSULE PO SCH (20:33)
[2019-09-03] MEDS: pantoprazole 40 MG vial IV SCH (20:34)
[2019-09-04] VITALS: BP 126/74
[2019-09-04] MEDS: morphine 4 MG/ML inj SYRINge IV PRN ×3 (03:50→17:22)
[2019-09-04 06:08] LABS: BASOPHILS # (AUTO) 0.1 X10'3 (0-0.2); BASOPHILS % (AUTO) 0.5 % (0-1); EOSINOPHILS # (AUTO) 0.1 X10'3 (0-0.9); EOSINOPHILS % (AUTO) 0.7 % (0-6); HEMATOCRIT 26.4 % (35.0-45.0); HEMOGLOBIN 8.7 g/dl (12.0-16.0); LYMPHOCYTES # (AUTO) 1.2 X10'3 (1.1-4.8); LYMPHOCYTES % (AUTO) 7.6 % (21-51); MEAN CORPUSCULAR HGB CONC 33.1 g/dL (33.0-36.5); MEAN CORPUSCULAR VOLUME 81.8 FL (78-98); MEAN PLATELET VOLUME 6.7 FL (7.4-10.4); MONOCYTES # (AUTO) 0.5 X10'3 (0-0.9); MONOCYTES % (AUTO) 3.3 % (2-12); NEUTROPHILS # (AUTO) 14.4 X10'3 (1.8-7.7); NEUTROPHILS % (AUTO) 87.9 % (42-75); RED BLOOD COUNT 3.23 X10'6 (4.20-5.60); RED CELL DISTRIBUTION WIDTH 21.8 % (11.5-14.5); WHITE BLOOD COUNT 16.3 X10'3 (4.5-11.0)
[2019-09-04 06:12] LABS: ALANINE AMINOTRANSFERASE 39 U/L (12-78); ALBUMIN 2.4 G/DL (3.4-5.0); ALBUMIN/GLOBULIN RATIO 0.6 (1.1-1.5); ALKALINE PHOSPHATASE 246 IU/L (46-116); ANION GAP 10 (8-16); ASPARTATE AMINO TRANSFERASE 63 U/L (10-37); BILIRUBIN,TOTAL 1.5 MG/DL (0.1-1.0); BLOOD UREA NITROGEN 54 MG/DL (7-18); BUN/CREATININE RATIO 44.6 (6.6-38.0); CALCIUM 7.5 MG/DL (8.5-10.1); CHLORIDE 103 MMOL/L (99-107); CREATININE 1.21 MG/DL (0.40-0.90); GLUCOSE 125 MG/DL (70-104); MAGNESIUM 1.8 MG/DL (1.5-2.4); PHOSPHORUS 3.7 MG/DL (2.3-4.5); POTASSIUM 4.3 MMOL/L (3.5-5.1); SODIUM 136 MMOL/L (135-145); TOTAL CARBON DIOXIDE 22.9 MMOL/L (24-32); TOTAL PROTEIN 6.4 G/DL (6.4-8.2); eGFR 45 ML/MIN
[2019-09-04 06:14] LABS: PLATELET COUNT 40 X10'3 (140-440)
--- NOTE | 2019-09-04 06:23 | NUR ---
Patient in room [facility]A 352. I have received report from KOBE SALMERON and had the opportunity to ask questions and assume patient care.
[2019-09-04 07:00] VITALS: BP 137/74
[2019-09-04 07:19] LABS: ANISOCYTOSIS 3+; LARGE PLATELETS FEW; PLATELET ESTIMATE DECREASED
[2019-09-04 07:20] LABS: HYPOCHROMASIA 1+; POLYCHROMASIA FEW
--- NOTE | 2019-09-04 07:53 | NUR ---
PATIENT'S O2 DROPPED TO HIGH 80'S PATIENT IS NOW GETTING O2 AT 4L, DR CROWELL WAITING FOR CALL BACK
[2019-09-04] MEDS: lactobacillus rhamnosus 10,000 MMU CELLS/CAPSULE PO SCH ×2 (08:43→21:46)
[2019-09-04] MEDS: pantoprazole 40 MG vial IV SCH ×2 (08:43→21:47)
[2019-09-04] MEDS: morphine ER 15mg tablet PO SCH ×2 (08:43→21:46)
[2019-09-04] MEDS: spironolactone 50 MG tablet PO SCH (08:43)
[2019-09-04] MEDS: amoxicillin 250mg capsule PO SCH ×2 (08:43→17:21)
[2019-09-04] MEDS: lactulose 20gm/30ml cup PO SCH ×2 (08:43→20:00)
[2019-09-04] MEDS: furosemide 40mg tablet PO SCH (08:44)
[2019-09-04] MEDS: docusate sod 100mg capsule PO SCH ×2 (08:47→20:00)
--- NOTE | 2019-09-04 08:50 | NUR ---
Colace was dropped on the floor and wasted appropriately. 2nd colace was removed from omnicell and administered to patient.
[2019-09-04] MEDS: insulin Lispro (HumaLOG) vial - multi-dose SQ SCH ×3 (08:59→18:56)
[2019-09-04 11:00] VITALS: BP 137/83
[2019-09-04 13:39] VITALS: BP 99/73
[2019-09-04 13:43] VITALS: BP 101/57
[2019-09-04 18:00] VITALS: BP 178/80
--- NOTE | 2019-09-04 19:01 | NUR ---
Problems reprioritized. Patient report given, questions answered & plan of care reviewed with KOBE SALMERON.
[2019-09-04] MEDS: sennosides/docusate sodium tablet PO SCH (21:00)
[2019-09-05] VITALS: BP 103/65
[2019-09-05] MEDS: amoxicillin 250mg capsule PO SCH ×3 (00:40→17:03)
[2019-09-05] MEDS: morphine 4 MG/ML inj SYRINge IV PRN ×3 (00:48→17:36)
--- NOTE | 2019-09-05 06:32 | NUR ---
Patient in room [facility]A 352. I have received report from KOBE SALMERON and had the opportunity to ask questions and assume patient care.
[2019-09-05 07:00] VITALS: BP 165/76
[2019-09-05] MEDS: pantoprazole 40 MG vial IV SCH (07:22)
[2019-09-05] MEDS: lactobacillus rhamnosus 10,000 MMU CELLS/CAPSULE PO SCH ×2 (07:23→19:37)
[2019-09-05] MEDS: lactulose 20gm/30ml cup PO SCH ×2 (07:24→22:11)
[2019-09-05] MEDS: furosemide 40mg tablet PO SCH (07:24)
[2019-09-05] MEDS: morphine ER 15mg tablet PO SCH ×2 (07:24→19:37)
[2019-09-05] MEDS: docusate sod 100mg capsule PO SCH ×2 (07:24→19:36)
[2019-09-05 07:49] LABS: BASOPHILS % (AUTO) 0.2 % (0-1); EOSINOPHILS % (AUTO) 0.2 % (0-6); HEMATOCRIT 25.3 % (35.0-45.0); HEMOGLOBIN 8.2 g/dl (12.0-16.0); LYMPHOCYTES % (AUTO) 4.9 % (21-51); MEAN CORPUSCULAR HEMOGLOBIN 26.5 PG (27.0-31.0); MEAN CORPUSCULAR HGB CONC 32.4 g/dL (33.0-36.5); MEAN CORPUSCULAR VOLUME 81.9 FL (78-98); MONOCYTES # (AUTO) 0.5 X10'3 (0-0.9); MONOCYTES % (AUTO) 2.6 % (2-12); NEUTROPHILS # (AUTO) 19.1 X10'3 (1.8-7.7); NEUTROPHILS % (AUTO) 92.1 % (42-75); RED BLOOD COUNT 3.09 X10'6 (4.20-5.60); RED CELL DISTRIBUTION WIDTH 22.6 % (11.5-14.5); WHITE BLOOD COUNT 20.8 X10'3 (4.5-11.0)
[2019-09-05 08:05] LABS: ALANINE AMINOTRANSFERASE 33 U/L (12-78); ALBUMIN/GLOBULIN RATIO 0.5 (1.1-1.5); ALKALINE PHOSPHATASE 279 IU/L (46-116); ANION GAP 11 (8-16); ASPARTATE AMINO TRANSFERASE 81 U/L (10-37); BILIRUBIN,TOTAL 1.8 MG/DL (0.1-1.0); BLOOD UREA NITROGEN 57 MG/DL (7-18); BUN/CREATININE RATIO 41.3 (6.6-38.0); CALCIUM 7.5 MG/DL (8.5-10.1); CHLORIDE 101 MMOL/L (99-107); CREATININE 1.38 MG/DL (0.40-0.90); GLUCOSE 204 MG/DL (70-104); MAGNESIUM 1.8 MG/DL (1.5-2.4); PHOSPHORUS 3.6 MG/DL (2.3-4.5); POTASSIUM 4.8 MMOL/L (3.5-5.1); SODIUM 133 MMOL/L (135-145); TOTAL PROTEIN 5.7 G/DL (6.4-8.2); eGFR 39 ML/MIN
[2019-09-05 08:25] LABS: PLATELET COUNT 31 X10'3 (140-440)
[2019-09-05 08:35] LABS: ANISOCYTOSIS 3+; PLATELET ESTIMATE DECREASED; TOTAL CELLS COUNTED 100; TOXIC GRANULATION 3+
[2019-09-05 08:36] LABS: HYPOCHROMASIA 1+; POIKILOCYTOSIS 1+; POLYCHROMASIA 2+
[2019-09-05] MEDS: spironolactone 50 MG tablet PO SCH (09:41)
[2019-09-05] MEDS: insulin Lispro (HumaLOG) vial - multi-dose SQ SCH ×3 (10:00→19:43)
[2019-09-05 10:40] LABS: ABG BASE EXCESS -3.6 mmol/L (-2.0-3.0); ABG OXYGEN SATURATION 89.6 % (95-98); ABG PCO2 (T) 30.2 mmHg (35.0-45.0); ABG PH (T) 7.438 (7.350-7.450); ABG PO2 (T) 55.4 mmHg (83-108); ALLEN'S TEST POSITIVE; FCOHb 0.4 % (0.5-1.5); FLOW 6 L/min; FMetHb 0.1 % (0.3-1.12); FO2Hb 89.2 % (94-100); TOTAL HEMOGLOBIN 8.8 G/dl (12.0-16.0)
[2019-09-05 12:00] VITALS: BP 94/52
--- NOTE | 2019-09-05 12:00 | NUR ---
WHEN I WENT TO GIVEN PATIENT THEIR MORNING MEDS AND INSULIN I NOTICED THE PATIENT WAS MORE SLEEPY THAN EARLIER AND WAS HARD TO AROUSE, I CHECKED THE O2 AND IT WAS 77 ON 6 LITERS. I LEFT THE ROOM TO FIND MY CHARGE NURSE AND TOLD HER THE SITUATION, SHE TOLD ME TO GET A NONREBREATHER WHICH I GOT, THEN I WENT TO GET THE DR. THE PATIENT WAS ENCOURAGED TO BREATH AND HER POSITION WAS CHANGED TO HELP PATIENT BREATH BETTER. O2 CAME BACK UP TO MID TO LOW 90'S, THE PATIENT, MORE ALERT, WAS PUT BACK ON THE NASAL CANULA AT 6 LITERS. LATER ABGS WERE ORDERED AND PATIENT WAS PUT ON A HIGH FLOW CANULA AT 10 LITTERS
--- NOTE | 2019-09-05 12:14 | NUR ---
Reassessment: Pt s/p paracentesis x 2 with 6.9L fluid removed 09/02 and 3.2L fluid removed 09/04. Pt continues on CHO controlled pureed diet per ST recs with average 75-100% PO intake meeting nutrient needs. Pt very confused today and Lactulose to increase per MD notes. LBM 09/05 documented as liquid, likely r/t Lactulose. Will continue to follow and monitor need for nutrition intervention. Recommend: 1. continue carb controlled pureed diet per ST recs 2. monitor need for ONS 4. DM education once stable, alert, oriented 5. bowel care as needed 6. wt per rx Addendum: 09/05/19 at [address] Amended: Links added.
--- NOTE | 2019-09-05 13:44 | NUR ---
PRESSURE ULCER EDUCATION: DEFINITION: A pressure ulcer is an area of skin that breaks down when you stay in one position too long. The constant pressure against the skin reduces the blood flow to that area and the affected tissue dies. CAUSES: "Being bedridden or in a wheelchair "Fragile skin "Having a chronic condition, such as diabetes or vascular disease "Inability to move certain parts of your body without assistance "Older age "Incontinence of urine or stool SYMPTOMS: "A reddened area that DOES NOT turn white when pressed on - this can be the beginning of a pressure ulcer "A blister, deep sore or a crater - these can be advanced pressure ulcers FIRST AID: "Relieve the pressure on this area "Keep the area clean and dry "Call your primary doctor if you see any of the above symptoms "DO NOT massage the area "DO NOT use a donut shaped or ring shaped pillow- these actually interfere with the blood flow and cause complications PREVENTION: "Check for pressure ulcers everyday "Change position at least every two hours to relieve pressure "Use items that help relieve pressure- pillows, sheepskin, foam padding, and powders. "Keep skin clean and dry "Eat healthy well balanced meals "Exercise daily IF YOU SEE ANY OF THESE SYMPTOMS WHILE IN THE HOSPITAL - TELL YOUR NURSE IMMEDIATELY. IF YOU SEE ANY OF THESE SYMPTOMS WHILE AT HOME OR HAVE ANY QUESTIONS OR CONCERNS ABOUT PRESSURE ULCERS - CALL YOUR PRIMARY DOCTOR IMMEDIATELY. Addendum: 09/05/19 at 1344 by Piper Griffiths RN Amended: Links added.
--- NOTE | 2019-09-05 17:30 | NUR ---
PATIENT HAD ONE MEDIUM SOFT BOWEL MOVEMENT AND 3 SMALL SOFT BOWEL MOVEMENTS DURING SHIFT
[2019-09-05 18:00] VITALS: BP 114/56
--- NOTE | 2019-09-05 18:15 | NUR ---
Problems reprioritized. Patient report given, questions answered & plan of care reviewed with KOBE MORLEY.
[2019-09-05] MEDS: pantoprazole 40mg Tablet.DR PO SCH (19:36)
[2019-09-05] MEDS ORDERED: pantoprazole 40mg Tablet.DR PO SCH (20:00)
[2019-09-05] MEDS: sennosides/docusate sodium tablet PO SCH (22:11)
--- NOTE | 2019-09-05 22:52 | NUR ---
Notified Dr Trejo of the situation with her O2 satuations. She has been running between lower 80s and lower 90s. aware.
[2019-09-06] VITALS: BP 98/49
[2019-09-06] MEDS: amoxicillin 250mg capsule PO SCH ×2 (00:48→07:14)
[2019-09-06] MEDS: morphine 4 MG/ML inj SYRINge IV PRN ×4 (01:54→17:09)
[2019-09-06 06:04] LABS: BASOPHILS % (AUTO) 0.1 % (0-1); EOSINOPHILS % (AUTO) 0.1 % (0-6); HEMATOCRIT 25.5 % (35.0-45.0); HEMOGLOBIN 8.3 g/dl (12.0-16.0); LYMPHOCYTES % (AUTO) 5.3 % (21-51); MEAN CORPUSCULAR HEMOGLOBIN 26.8 PG (27.0-31.0); MEAN CORPUSCULAR HGB CONC 32.6 g/dL (33.0-36.5); MEAN CORPUSCULAR VOLUME 82.3 FL (78-98); MEAN PLATELET VOLUME 7.8 FL (7.4-10.4); MONOCYTES # (AUTO) 0.4 X10'3 (0-0.9); MONOCYTES % (AUTO) 2.1 % (2-12); NEUTROPHILS # (AUTO) 17.9 X10'3 (1.8-7.7); NEUTROPHILS % (AUTO) 92.4 % (42-75); PLATELET COUNT 58 X10'3 (140-440); RED CELL DISTRIBUTION WIDTH 22.6 % (11.5-14.5); WHITE BLOOD COUNT 19.4 X10'3 (4.5-11.0)
--- NOTE | 2019-09-06 06:11 | NUR ---
Problems reprioritized. Patient report given, questions answered & plan of care reviewed with Mer BULLOCK.
[2019-09-06 06:22] LABS: ALANINE AMINOTRANSFERASE 30 U/L (12-78); ALBUMIN/GLOBULIN RATIO 0.5 (1.1-1.5); ALKALINE PHOSPHATASE 282 IU/L (46-116); ANION GAP 8 (8-16); ASPARTATE AMINO TRANSFERASE 84 U/L (10-37); BILIRUBIN,TOTAL 2.3 MG/DL (0.1-1.0); BLOOD UREA NITROGEN 56 MG/DL (7-18); BUN/CREATININE RATIO 42.4 (6.6-38.0); CALCIUM 8.1 MG/DL (8.5-10.1); CHLORIDE 101 MMOL/L (99-107); CREATININE 1.32 MG/DL (0.40-0.90); GLUCOSE 155 MG/DL (70-104); MAGNESIUM 1.9 MG/DL (1.5-2.4); POTASSIUM 4.6 MMOL/L (3.5-5.1); SODIUM 132 MMOL/L (135-145); TOTAL CARBON DIOXIDE 22.9 MMOL/L (24-32); TOTAL PROTEIN 6.1 G/DL (6.4-8.2); eGFR 41 ML/MIN
--- NOTE | 2019-09-06 06:31 | NUR ---
Patient in room [facility]A 352. I have received report from Gerson BULLOCK and had the opportunity to ask questions and assume patient care. Addendum: 09/06/19 at 0632 by Mer Simmons RN Patient in room [facility]A 352. I have received report from nasir bullock and had the opportunity to ask questions and assume patient care.
[2019-09-06 07:06] LABS: ANISOCYTOSIS 3+; HYPOCHROMASIA 1+; MICROCYTOSIS 1+; PLATELET ESTIMATE DECREASED; POLYCHROMASIA 1+
[2019-09-06 07:07] LABS: POIKILOCYTOSIS FEW
[2019-09-06] MEDS: lactulose 20gm/30ml cup PO SCH ×2 (07:13→13:00)
[2019-09-06] MEDS: lactobacillus rhamnosus 10,000 MMU CELLS/CAPSULE PO SCH (07:13)
[2019-09-06] MEDS: pantoprazole 40mg Tablet.DR PO SCH (07:13)
[2019-09-06] MEDS: morphine ER 15mg tablet PO SCH (07:13)
[2019-09-06] MEDS: docusate sod 100mg capsule PO SCH (07:14)
[2019-09-06] MEDS: furosemide 40mg tablet PO SCH (07:14)
[2019-09-06 08:00] VITALS: BP 108/74
[2019-09-06] MEDS: insulin Lispro (HumaLOG) vial - multi-dose SQ SCH (08:56)
[2019-09-06] MEDS: spironolactone 50 MG tablet PO SCH (09:01)
--- NOTE | 2019-09-06 10:04 | NUR ---
patient bladder scanned 675mls observed order received from DR Acharya to place Ren Catheter.
[2019-09-06 11:00] VITALS: BP 113/59
[2019-09-06] MEDS ORDERED: morphine 10mg/ml inj. IV PRN (12:55)
[2019-09-06] MEDS ORDERED: LORazepam 2 mg/ml vial IV PRN (12:55)
[2019-09-06] MEDS ORDERED: acetaminophen 325mg tablet PO PRN (12:55)
[2019-09-06] MEDS: morphine 2 MG/ML inj. syringe IV PRN (14:56)
[2019-09-06 18:00] VITALS: BP 120/76
[2019-09-06] MEDS ORDERED: morphine 4 MG/ML inj SYRINge IV PRN (18:35)
[2019-09-06] MEDS ORDERED: morphine 2 MG/ML inj. syringe IV PRN (18:35)
--- NOTE | 2019-09-06 18:51 | NUR ---
Patient seen by JO Agustin [place] present conference had with this RN and DR rivers for patient to be made DNR with comfort care . All cares given. Report given to Marcelle BULLOCK
--- NOTE | 2019-09-06 19:16 | NUR ---
Patient in room [facility]A 352. I have received report from MIKEY BULLOCK and had the opportunity to ask questions and assume patient care.
[2019-09-06] MEDS: morphine 10mg/ml inj. IV PRN ×2 (19:25→22:25)
[2019-09-06] MEDS ORDERED: sennosides/docusate sodium tablet PO SCH (20:00)
[2019-09-07 00:57] VITALS: BP 134/59
[2019-09-07] MEDS: morphine 10mg/0.5ml (conc. morphine) oral syringe PO PRN ×9 (01:54→23:09)
--- NOTE | 2019-09-07 06:18 | NUR ---
Problems reprioritized. Patient report given, questions answered & plan of care reviewed with Jody BULLOCK. patient is with the sitter and shows no sign of distress.
[2019-09-07 08:00] VITALS: BP 90/50
--- NOTE | 2019-09-07 16:01 | NUR ---
Emma Blandon from [facility] came to evaluate pt. for hospice services, however found the pt. to be too immanent for transport at this time. The son and youngest daughter wish for the mother to go to the son's home because the pt. does not want to pass in the hospital, however the family has been feeding the patient and encouraging pt. not to rest but to stay awake and alert. The pt. has been agonal breathing, but at times does speak and make appropriate requests.
--- NOTE | 2019-09-07 17:46 | NUR ---
Although pt. states at this time she would like all three of children to be making decisions for her, they are not her legal POA and the pt. is unresponsive and confused at times. Spoke with LEGAL POA Marie Morse- pt.'s sister and she states pt. is absolutely not going home to stay with her son because of a previous issue. States she "does not trust those kids".
--- NOTE | 2019-09-07 18:19 | NUR ---
Gave report to Annette BULLOCK.
--- NOTE | 2019-09-07 18:30 | NUR ---
Patient in room [facility]A 352. I have received report from THOMAS and had the opportunity to ask questions and assume patient care. ASSUMED CARE OF PT WITH RN STUDENT SPEEDY Carcamo FAMILY AT THE BEDSIDE
[2019-09-07 19:15] VITALS: BP 128/77
[2019-09-08] MEDS: morphine 10mg/0.5ml (conc. morphine) oral syringe PO PRN ×4 (01:04→18:21)
[2019-09-08] MEDS: LORazepam 1 MG tablet PO PRN ×2 (01:32→19:21)
--- NOTE | 2019-09-08 06:30 | NUR ---
Patient in room [facility]A 352. I have received report from Krissy BULLOCK and had the opportunity to ask questions and assume patient care.
--- NOTE | 2019-09-08 06:33 | NUR ---
Problems reprioritized. Patient report given, questions answered & plan of care reviewed with LUBA .
[2019-09-08 07:01] VITALS: BP 133/60
--- NOTE | 2019-09-08 12:44 | NUR ---
F/u: Pt has been made DNR w/ comfort care. LBM 2/ large per EMR. Will continue to monitor. Recommend: 1. continue carb controlled pureed diet per ST recs 2. bowel care as needed 3. wt per rx Addendum: 09/08/19 at [address] Amended: Links added.
--- NOTE | 2019-09-08 18:30 | NUR ---
Patient in room [facility]A 352. I have received report from LUBA and had the opportunity to ask questions and assume patient care. ASSUMED CARE OF PT WITH RN STUDENT SPEEDY Carcamo
--- NOTE | 2019-09-08 18:30 | NUR ---
Patient in room [facility]A 352. I have received report from LUBA and had the opportunity to ask questions and assume patient care. ASSUMED CARE OF WITH RN STUDENT SPEEDY Carcamo
--- NOTE | 2019-09-08 18:35 | NUR ---
Problems reprioritized. Patient report given, questions answered & plan of care reviewed with Annette BULLOCK.
[2019-09-08 19:00] VITALS: BP 114/48
[2019-09-09] VITALS: BP 147/70
--- NOTE | 2019-09-09 05:52 | NUR ---
Student documentation: I have reviewed and agree with all interventions, assessments performed and documented by SPEEDY. Student documentation: I have reviewed and agree with all interventions, assessments performed and documented by SPEEDY Carcamo
--- NOTE | 2019-09-09 06:26 | NUR ---
Problems reprioritized. Patient report given, questions answered & plan of care reviewed with LUBA.
--- NOTE | 2019-09-09 06:30 | NUR ---
Patient in room [facility]A 352. I have received report from Krissy BULLOCK and had the opportunity to ask questions and assume patient care.
[2019-09-09 07:31] VITALS: BP 100/53
--- NOTE | 2019-09-09 12:18 | NUR ---
Pt's visitor, "Bharathi", was in hallway near [facility] loudly stating, "Leave me alone!" "Stop following me!", directing her statements to "Marie" who was also in the hallway near the station. When approached, the loud conversation continued regarding a note being given to Marie by Bharathi, and the argument continued. I requested that the loud conversation cease d/t disruption to other patients, for them to separate due to Bharathi requesting that Marie not follow her. was called. Marie stated, "I'm suing this hospital because every day I get a call that the patient is going home!" and stated "I dont even know who she is (referring to bharathi), or her name!" Daniel King, arrived and escorted the women to the chen in front of the patients room. Bharathi stated regarding the patient, "Now that she's awake (referring to the pt) we want her to sign another power of insurance attorney." JAYDON Quintero, was paged. stated Marie was currently in the patients room, and Bharathi had left. JAYDON Quintero, arrived to the unit and was apprised of the situation.
[2019-09-09] MEDS: morphine 10mg/0.5ml (conc. morphine) oral syringe PO PRN ×4 (12:22→21:28)
--- NOTE | 2019-09-09 18:30 | NUR ---
Patient in room [facility]A 352. I have received report from Daniel BULLOCK and had the opportunity to ask questions and assume patient care.
--- NOTE | 2019-09-09 18:30 | NUR ---
Patient in room [facility]A 352. I have received report from Daniel BULLOCK and had the opportunity to ask questions and assume patient care.
[2019-09-09 20:00] VITALS: BP 147/70
[2019-09-10] MEDS: morphine 10mg/0.5ml (conc. morphine) oral syringe PO PRN ×6 (00:51→20:51)
--- NOTE | 2019-09-10 06:27 | NUR ---
Problems reprioritized. Patient report given, questions answered & plan of care reviewed with Miranda BULLOCK.
--- NOTE | 2019-09-10 06:30 | NUR ---
Problems reprioritized. Patient report given, questions answered & plan of care reviewed with Miranda BULLOCK.
[2019-09-10 07:00] VITALS: BP 113/57
--- NOTE | 2019-09-10 10:00 | NUR ---
PT WAS MOANING WITH EVERY BREATH. I ASKED PT IF SHE WOULD LIKE SOMETHING FOR PAIN. SHE NODDED HER HEAD IN AGREEMENT. WHEN I BROUGHT MEDICATION IN TO GIVE TO PT FAMILY AT BEDSIDE STATED THAT THEY DID NOT BELIEVE THAT SHE NEEDED PAIN MEDICATION. I EXPLAINED THAT THE PT NODDED THAT SHE WANTED IT AND THE IDEA OF COMFORT CARE IS FOR THE PT TO BE COMFORTABLE AND NOT SUFFER SHE IS UNABLE TO VERBALIZE THAT SHE IS IN PAIN AND WE RELY ON QUES FROM PT, SUCH MOANING. THEY GOT VISIBLY UPSET AND LEFT THE ROOM. WILL CONT TO MONITOR PT AND THE NEED FOR PAIN CONTROL AND COMFORT MEASURES.
--- NOTE | 2019-09-10 18:06 | NUR ---
Problems reprioritized. Patient report given, questions answered & plan of care reviewed with CHARO BULLOCK.
--- NOTE | 2019-09-10 18:30 | NUR ---
Patient in room ISA 352. I have received report from Miranda BULLOCK and had the opportunity to ask questions and assume patient care.
--- NOTE | 2019-09-10 18:30 | NUR ---
Patient in room ISA 352. I have received report from Miranda BULLOCK and had the opportunity to ask questions and assume patient care.
[2019-09-10 20:00] VITALS: BP 108/51
[2019-09-11] MEDS: morphine 10mg/0.5ml (conc. morphine) oral syringe PO PRN ×9 (02:00→23:21)
--- NOTE | 2019-09-11 06:12 | NUR ---
Problems reprioritized. Patient report given, questions answered & plan of care reviewed with Sandy BULLOCK.
--- NOTE | 2019-09-11 06:13 | NUR ---
Problems reprioritized. Patient report given, questions answered & plan of care reviewed with Yolanda BULLOCK.
--- NOTE | 2019-09-11 06:56 | NUR ---
Problems reprioritized. Patient report given, questions answered & plan of care reviewed with Sandy BULLOCK.
--- NOTE | 2019-09-11 07:05 | NUR ---
Patient in room ISA 352. I have received report from Yesica BULLOCK and had the opportunity to ask questions and assume patient care.
[2019-09-11 08:00] VITALS: BP 101/58
[2019-09-11 08:31] VITALS: BP 101/58
[2019-09-11 18:00] VITALS: BP 131/53
--- NOTE | 2019-09-11 18:40 | NUR ---
Problems reprioritized. Patient report given, questions answered & plan of care reviewed with Gerson BULLOCK.
[2019-09-12] MEDS: morphine 10mg/0.5ml (conc. morphine) oral syringe PO PRN ×5 (01:59→19:24)
--- NOTE | 2019-09-12 06:08 | NUR ---
Problems reprioritized. Patient report given, questions answered & plan of care reviewed with Sandy BULLOCK.
--- NOTE | 2019-09-12 06:51 | NUR ---
Patient in room ISA 352. I have received report from Gerson BULLOCK and had the opportunity to ask questions and assume patient care.
[2019-09-12 18:15] VITALS: BP 142/92
--- NOTE | 2019-09-12 18:34 | NUR ---
Patient in room ISA 352. I have received report from KOBE Delgado and had the opportunity to ask questions and assume patient care.
--- NOTE | 2019-09-12 18:55 | NUR ---
Problems reprioritized. Patient report given, questions answered & plan of care reviewed with Mercy BULLOCK.
[2019-09-13] MEDS: morphine 10mg/0.5ml (conc. morphine) oral syringe PO PRN ×6 (00:02→21:31)
--- NOTE | 2019-09-13 06:30 | NUR ---
Patient in room ISA 352. I have received report from AYAZ BULLOCK and had the opportunity to ask questions and assume patient care.
--- NOTE | 2019-09-13 06:40 | NUR ---
Problems reprioritized. Patient report given, questions answered & plan of care reviewed with KOBE Sanchez.
[2019-09-13 11:21] VITALS: BP 134/68
[2019-09-13 18:50] VITALS: BP 77/27
--- NOTE | 2019-09-13 18:56 | NUR ---
Patient in room ISA 352. I have received report from Daniel Blandon and had the opportunity to ask questions and assume patient care. Addendum: 09/13/19 at 1857 by Brooke Chambers RN Amended: Links added.
--- NOTE | 2019-09-13 18:58 | NUR ---
Problems reprioritized. Patient report given, questions answered & plan of care reviewed with Brooke BULLOCK.
[2019-09-14] MEDS: morphine 10mg/0.5ml (conc. morphine) oral syringe PO PRN ×3 (01:04→19:48)
--- NOTE | 2019-09-14 04:15 | NUR ---
pt awoke and medicated for pain with Roxanol taking pd fluids well.
[2019-09-14] MEDS: LORazepam 1 MG tablet PO PRN (05:02)
--- NOTE | 2019-09-14 05:05 | NUR ---
pt anxious and medicated with po ativan for this drinking ice cold water several cups. asking for cold Dr huggins and ordered it from the kitchen for her.
--- NOTE | 2019-09-14 05:46 | NUR ---
resting eyes closed 02 repositioned in her mouth. mouth breathing.
--- NOTE | 2019-09-14 06:28 | NUR ---
Problems reprioritized. Patient report given, questions answered & plan of care reviewed with Daniel Blandon. Student documentation: I have reviewed and agree with all interventions, assessments performed and documented by Salome valverde Rn student. Addendum: 09/14/19 at 0630 by Brooke Chambers RN Amended: Links added.
--- NOTE | 2019-09-14 06:30 | NUR ---
Patient in room [facility]A 352. I have received report from Brooke BULLOCK and had the opportunity to ask questions and assume patient care.
[2019-09-14 07:39] VITALS: BP 72/40
--- NOTE | 2019-09-14 15:41 | NUR ---
F/u: Pt has been made DNR w/ comfort care. LBM 09/09. ANA [employer] and d/w RN regarding routine bowel care given constipation on comfort care per MD approval. Will continue to monitor. Recommend: 1. continue carb controlled pureed diet per ST recs 2. bowel care as needed 3. wt per rx Addendum: 09/14/19 at [address] Amended: Links added.
--- NOTE | 2019-09-14 18:38 | NUR ---
Problems reprioritized. Patient report given, questions answered & plan of care reviewed with Brooke BULLOCK.
--- NOTE | 2019-09-14 18:51 | NUR ---
Patient in room [facility]A 352. I have received report from LUBA BULLOCK and had the opportunity to ask questions and assume patient care. Addendum: 09/14/19 at 1851 by Brooke Chambers RN Amended: Links added.
[2019-09-14 19:15] VITALS: BP 78/46
--- NOTE | 2019-09-14 19:30 | NUR ---
pt inc of light medium stool hs care done and repositioned in bed. tolerated well.
--- NOTE | 2019-09-14 21:01 | NUR ---
pt inc of stool second time and hs care done and welsh care at this time. tolerated well.
[2019-09-14] MEDS ORDERED: fentaNYL/PF 50MCG/1 ML 2ML syringe ONE (21:08)
[2019-09-14] MEDS ORDERED: LIDOcaine 2% (20mg/ml) 5ml vial ONE (21:08)
[2019-09-14] MEDS ORDERED: midazolam 2 mg/2 ml injection ONE (21:08)
[2019-09-14] MEDS ORDERED: propofol inj 20 ML IV ONE (21:08)
[2019-09-14] MEDS ORDERED: rocuronium 10mg/ml inj IV ONE (21:22)
[2019-09-14] MEDS ORDERED: ondansetron/PF 4mg/2ml inj ONE (21:23)
[2019-09-14] MEDS ORDERED: meperidine/PF 50mg/ml syringe ONE (21:31)
[2019-09-14] MEDS ORDERED: glycopyrrolate 0.2mg/ml inj ONE (22:27)
[2019-09-14] MEDS ORDERED: ketorolac trometh. 30mg/ml inj. ONE (22:29)
--- NOTE | 2019-09-14 23:00 | NUR ---
pt resting appears comfortable. turned,
--- NOTE | 2019-09-15 00:10 | NUR ---
pt repositioned in bed noted inc of sm amt of stool skin care done and medicated for pain with Roxanol for this.
[2019-09-15] MEDS: morphine 10mg/0.5ml (conc. morphine) oral syringe PO PRN ×6 (00:23→22:27)
--- NOTE | 2019-09-15 01:15 | NUR ---
pt ressting eyes closed without changes.
--- NOTE | 2019-09-15 05:16 | NUR ---
medicated for pain with Roxanol po repositioned in bed. drinking Dr Pepper and water.
--- NOTE | 2019-09-15 06:35 | NUR ---
Problems reprioritized. Patient report given, questions answered & plan of care reviewed with Hannah Blandon. Addendum: 09/15/19 at 0635 by Brooke Chambers RN Amended: Links added.
--- NOTE | 2019-09-15 06:50 | NUR ---
Patient in room [facility]A 352. I have received report from Clover BULLOCK and had the opportunity to ask questions and assume patient care.
[2019-09-15 08:00] VITALS: BP 99/47
--- NOTE | 2019-09-15 18:30 | NUR ---
Patient in room [facility]A 352. I have received report from URIAH BULLOCK and had the opportunity to ask questions and assume patient care. Addendum: 09/15/19 at 1937 by Brooke Chambers RN Amended: Links added.
--- NOTE | 2019-09-15 18:43 | NUR ---
Problems reprioritized. Patient report given, questions answered & plan of care reviewed with Clover Blandon.
[2019-09-15 19:00] VITALS: BP 88/47
--- NOTE | 2019-09-15 22:27 | NUR ---
medicated for pain with Roxanol 02/12 and taking sips of water.
[2019-09-16] MEDS: morphine 10mg/0.5ml (conc. morphine) oral syringe PO PRN ×4 (01:01→21:53)
--- NOTE | 2019-09-16 06:13 | NUR ---
Problems reprioritized. Patient report given, questions answered & plan of care reviewed with URIAH BULLOCK. she is aware pt's labia, legs and abd remain edematous and of medication times. Addendum: 09/16/19 at 0615 by Brooke Chambers RN Amended: Links added.
--- NOTE | 2019-09-16 06:20 | NUR ---
Student documentation: I have reviewed and agree with all interventions, assessments performed and documented by Salome Naidu Rn student.Student Medication Administration: For this medication-pass time frame, all medication were reviewed, dispensed, administered and documented per hospital policy by Salome Naidu Student . Addendum: 09/16/19 at 0716 by Brooke Chambers RN Amended: Links added.
[2019-09-16 08:00] VITALS: BP 170/139
[2019-09-16 18:00] VITALS: BP 96/50
--- NOTE | 2019-09-16 18:38 | NUR ---
Problems reprioritized. Patient report given, questions answered & plan of care reviewed with Eric BULLOCK.
--- NOTE | 2019-09-16 18:49 | NUR ---
Patient in room ISA 352. I have received report from KOBE Delgado and had the opportunity to ask questions and assume patient care.
[2019-09-17] MEDS: morphine 10mg/0.5ml (conc. morphine) oral syringe PO PRN ×6 (00:04→22:03)
[2019-09-17] MEDS: LORazepam 0.5 MG tablet PO PRN ×2 (00:08→22:02)
--- NOTE | 2019-09-17 06:12 | NUR ---
Problems reprioritized. Patient report given, questions answered & plan of care reviewed with KOBE Sanchez.
--- NOTE | 2019-09-17 06:30 | NUR ---
Patient in room [facility]A 352. I have received report from NAYELY BULLOCK and had the opportunity to ask questions and assume patient care.
--- NOTE | 2019-09-17 12:48 | NUR ---
Student documentation: I have reviewed interventions, assessments performed and documented by Candido RODRIGUEZ [facility].
[2019-09-17 18:00] VITALS: BP 133/63
--- NOTE | 2019-09-17 18:15 | NUR ---
Patient in room [facility]A 352. I have received report from Daniel BULLOCK and had the opportunity to ask questions and assume patient care.
--- NOTE | 2019-09-17 18:30 | NUR ---
Problems reprioritized. Patient report given, questions answered & plan of care reviewed with Humaira BULLOCK.
[2019-09-18] MEDS: morphine 10mg/0.5ml (conc. morphine) oral syringe PO PRN ×4 (01:26→15:20)
--- NOTE | 2019-09-18 06:18 | NUR ---
Problems reprioritized. Patient report given, questions answered & plan of care reviewed with Daniel RN.
[2019-09-18 08:00] VITALS: BP 88/45
[2019-09-18 12:00] VITALS: BP 92/51
--- NOTE | 2019-09-18 14:24 | NUR ---
Student documentation: I have reviewed all interventions, assessments performed and documented by Jessica MARTINI.
--- NOTE | 2019-09-18 14:51 | NUR ---
pt on comfort care, unable to respond to any A&O results Addendum: 09/18/19 at 1454 by Jessica ROJAS Amended: Links added.
--- NOTE | 2019-09-18 14:53 | NUR ---
unable to state if pt is passing gas Addendum: 09/18/19 at 1454 by Jessica ROJAS Amended: Links added.
[2019-09-18 18:00] VITALS: BP 91/49
--- NOTE | 2019-09-18 18:30 | NUR ---
Problems reprioritized. Patient report given, questions answered & plan of care reviewed with Gerson BULLOCK.
[2019-09-19] MEDS: morphine 10mg/0.5ml (conc. morphine) oral syringe PO PRN ×2 (05:38→08:41)
--- NOTE | 2019-09-19 06:10 | NUR ---
Patient in room [facility]A 352. I have received report from KOBE Nieto and had the opportunity to ask questions and assume patient care.
--- NOTE | 2019-09-19 06:30 | NUR ---
Pt refused VS check
[2019-09-19] MEDS: LORazepam 0.5 MG tablet PO PRN (08:42)
[2019-09-19 18:00] VITALS: BP 90/43
--- NOTE | 2019-09-19 18:05 | NUR ---
Problems reprioritized. Patient report given, questions answered & plan of care reviewed with KOBE Nieto.
--- NOTE | 2019-09-20 06:05 | NUR ---
Patient in room [facility]A 352. I have received report from KOBE Nieto and had the opportunity to ask questions and assume patient care.
[2019-09-20 06:30] VITALS: BP 114/62
[2019-09-20] MEDS: LORazepam 0.5 MG tablet PO PRN ×2 (07:10→12:55)
[2019-09-20] MEDS: morphine 10mg/0.5ml (conc. morphine) oral syringe PO PRN ×2 (07:10→12:55)
--- NOTE | 2019-09-20 18:10 | NUR ---
Problems reprioritized. Patient report given, questions answered & plan of care reviewed with KOBE Nieto.
[2019-09-21] MEDS: morphine 10mg/0.5ml (conc. morphine) oral syringe PO PRN ×4 (05:49→22:05)
--- NOTE | 2019-09-21 06:10 | NUR ---
Patient in room [facility]A 352. I have received report from KOBE Nieto and had the opportunity to ask questions and assume patient care.
[2019-09-21 06:30] VITALS: BP 117/70
[2019-09-21] MEDS: LORazepam 0.5 MG tablet PO PRN ×2 (12:24→19:19)
--- NOTE | 2019-09-21 14:23 | NUR ---
Reassessment: Pt is DNR w/ comfort care. LBM 09/19. Will continue to monitor. Recommend: 1. continue carb controlled pureed diet per ST recs 2. bowel care as needed 3. wt per rx Addendum: 09/21/19 at [address] Amended: Links added.
--- NOTE | 2019-09-21 18:10 | NUR ---
Patient in room [facility]A 352. I have received report from Hanny BULLOCK and had the opportunity to ask questions and assume patient care.
--- NOTE | 2019-09-21 18:15 | NUR ---
Problems reprioritized. Patient report given, questions answered & plan of care reviewed with KOBE Vargas.
[2019-09-21 19:00] VITALS: BP 112/64
--- NOTE | 2019-09-21 19:30 | NUR ---
Respirations came down to 24 per minute after receiving pain medications.
--- NOTE | 2019-09-21 19:45 | NUR ---
Patient was placed on comfort care during this hospital stay. Addendum: 09/21/19 at 2159 by Alicia Ivan RN Amended: Links added.
--- NOTE | 2019-09-22 | NUR ---
Patient given a bed bath and lotion to skin. Optifoam to buttocks removed as drainage noted. Picture taken of wound and recovered with an optifoam for protection. also placed 3 optifoams to bony mid-upper back spine. These areas remain intact. Picture taken of left blackened heel and optifoam placed for protection/comfort as well as optifoam to right heel which remain intact. Patient is being turned q2 and pain medicine being administered. Addendum: 09/22/19 at 0158 by Alicia Ivan RN Old foam dressing to RLQ removed. No new drainage noted at this time
[2019-09-22] MEDS: morphine 10mg/0.5ml (conc. morphine) oral syringe PO PRN ×3 (00:18→20:48)
--- NOTE | 2019-09-22 06:43 | NUR ---
Problems reprioritized. Patient report given, questions answered & plan of care reviewed with Hetal BULLOCK.
[2019-09-22 06:58] VITALS: BP 74/42
--- NOTE | 2019-09-22 18:30 | NUR ---
Patient in room [facility]. I have received report from Hetal BULLOCK and had the opportunity to ask questions and assume patient care.
--- NOTE | 2019-09-22 18:32 | NUR ---
Problems reprioritized. Patient report given, questions answered & plan of care reviewed with Alicia BULLOCK.
[2019-09-22 19:00] VITALS: BP 119/65
[2019-09-22 20:48] VITALS: BP 119/65
[2019-09-23] MEDS: morphine 10mg/0.5ml (conc. morphine) oral syringe PO PRN ×4 (01:59→16:12)
--- NOTE | 2019-09-23 06:10 | NUR ---
Patient in room [facility]. I have received report from Alicia BULLOCK and had the opportunity to ask questions and assume patient care.
[2019-09-23 06:42] VITALS: BP_SYST 119; BP_SYST 97; BP_DIAS 62; BP_DIAS 65
--- NOTE | 2019-09-23 06:46 | NUR ---
Problems reprioritized. Patient report given, questions answered & plan of care reviewed with Hetal BULLOCK.
--- NOTE | 2019-09-23 18:25 | NUR ---
Patient in room [facility]. I have received report from Hetal BULLOCK and had the opportunity to ask questions and assume patient care.
--- NOTE | 2019-09-23 18:29 | NUR ---
Problems reprioritized. Patient report given, questions answered & plan of care reviewed with Alicia BULLOCK.
[2019-09-23 20:00] VITALS: BP 95/49
--- NOTE | 2019-09-23 23:00 | NUR ---
Patients sister Marie called to check in on patient. Code word "Adelaida" verified.Informed Marie that she could call anytime and check on her, and that patient is being kept comfortable, and medicated for pain when needed. Marie expressed her sincere appreciation and thanks to all staff caring for her sister,.
[2019-09-24] MEDS: morphine 10mg/0.5ml (conc. morphine) oral syringe PO PRN ×5 (01:58→17:50)
--- NOTE | 2019-09-24 07:05 | NUR ---
Patient in room [facility]. I have received report from Alicia BULLOCK and had the opportunity to ask questions and assume patient care.
[2019-09-24 08:06] VITALS: BP 93/54
--- NOTE | 2019-09-24 18:40 | NUR ---
Problems reprioritized. Patient report given, questions answered & plan of care reviewed with Rafaela Iniguez
--- NOTE | 2019-09-24 19:00 | NUR ---
Patient in room [facility]. I have received report from KOBE KRUSE and had the opportunity to ask questions and assume patient care. Addendum: 09/24/19 at 1900 by Eunice Sandra RN Amended: Links added.
[2019-09-24 20:00] VITALS: BP 138/67
[2019-09-25] MEDS: morphine 10mg/0.5ml (conc. morphine) oral syringe PO PRN ×4 (02:50→19:35)
[2019-09-25] MEDS: LORazepam 0.5 MG tablet PO PRN (03:45)
--- NOTE | 2019-09-25 03:48 | NUR ---
patient was noted screaming and asking for water, she appears restless and so ativan was given.
--- NOTE | 2019-09-25 07:10 | NUR ---
Patient in room [facility]. I have received report from Rafaela Downs and had the opportunity to ask questions and assume patient care.
--- NOTE | 2019-09-25 07:34 | NUR ---
Problems reprioritized. Patient report given, questions answered & plan of care reviewed with KOBE Delgado.
[2019-09-25 18:00] VITALS: BP 92/46
--- NOTE | 2019-09-25 18:10 | NUR ---
Problems reprioritized. Patient report given, questions answered & plan of care reviewed with Rafaela Iniguez
--- NOTE | 2019-09-25 19:32 | NUR ---
Patient in room [facility]. I have received report from KOBE KRUSE and had the opportunity to ask questions and assume patient care. Addendum: 09/25/19 at 1932 by Eunice Sandra RN Amended: Links added.
[2019-09-26] MEDS: morphine 10mg/0.5ml (conc. morphine) oral syringe PO PRN ×5 (05:51→20:13)
--- NOTE | 2019-09-26 06:40 | NUR ---
Problems reprioritized. Patient report given, questions answered & plan of care reviewed with KOBE KRUSE.
[2019-09-26 18:00] VITALS: BP 126/73
--- NOTE | 2019-09-26 18:30 | NUR ---
Patient in room [facility]. I have received report from URIAH BULLOCK and had the opportunity to ask questions and assume patient care. Addendum: 09/26/19 at 1906 by Brooke Chambers RN Amended: Links added.
--- NOTE | 2019-09-26 18:45 | NUR ---
Patient in room [facility]. I have received report from AMANDA Ruiz RN and had the opportunity to ask questions and assume patient care. Addendum: 09/26/19 at 1905 by Brooke Chambers RN Amended: Links added. Addendum: 09/26/19 at 1907 by Brooke Chambers RN Patient in room [facility]. I have received report from URIAH BULLOCK and had the opportunity to ask questions and assume patient care.
[2019-09-26 19:00] VITALS: BP 90/57
--- NOTE | 2019-09-26 19:04 | NUR ---
Problems reprioritized. Patient report given, questions answered & plan of care reviewed with Brooke BULLOCK.
--- NOTE | 2019-09-26 20:00 | NUR ---
pt medicated for pain with oral morphine and positioned to comfort.
--- NOTE | 2019-09-26 22:00 | NUR ---
pt repositioned skin care done and mouth care.
--- NOTE | 2019-09-27 00:10 | NUR ---
pt inc of small to medium soft formed stool and skin care done. opti foam to buttox removed and replaced after skin care done and optifoam left calf where it appears to have a blood blister area.
[2019-09-27] MEDS: morphine 10mg/0.5ml (conc. morphine) oral syringe PO PRN ×4 (00:19→19:48)
--- NOTE | 2019-09-27 01:30 | NUR ---
Patient ate an entire cup of yogurt and all of her chocolate pudding. She drank several cups of water and I performed oral care. Patient now content and sleeping.
--- NOTE | 2019-09-27 02:25 | NUR ---
pt inc of small to medium soft formed stool. skin care done and repositioned to comfort. barrier cream applied.
--- NOTE | 2019-09-27 04:12 | NUR ---
medicated for pain making facial grimace and a moan ie of 02/12. taking po water well. positioned to comfort,
--- NOTE | 2019-09-27 05:37 | NUR ---
Student documentation: I have reviewed and agree with all interventions, assessments performed and documented by JAMES MARSH RN STUDENT.Student Medication Administration: For this medication-pass time frame, all medication were reviewed, dispensed, administered and documented per hospital policy by JAMES MARSH RN STUDENT. Addendum: 09/27/19 at 0538 by Brooke Chambers RN Amended: Links added.
--- NOTE | 2019-09-27 06:03 | NUR ---
Problems reprioritized. Patient report given, questions answered & plan of care reviewed with PRAVEEN BULLOCK. Addendum: 09/27/19 at 0614 by Brooke Chambers RN Amended: Links added.
--- NOTE | 2019-09-27 06:59 | NUR ---
Patient in room [facility]. I have received report from KOBE EL and had the opportunity to ask questions and assume patient care.
[2019-09-27 08:00] VITALS: BP 99/56
--- NOTE | 2019-09-27 18:45 | NUR ---
Problems reprioritized. Patient report given, questions answered & plan of care reviewed with KOBE EL.
--- NOTE | 2019-09-27 18:57 | NUR ---
Patient in room [facility]. I have received report from PRAVEEN BULLOCK and had the opportunity to ask questions and assume patient care. Addendum: 09/27/19 at 1857 by Brooke Chambers RN Amended: Links added.
[2019-09-27 19:00] VITALS: BP 114/66
--- NOTE | 2019-09-27 19:50 | NUR ---
MEDICATED FOR PAIN WITH ROXANOL PO AND THEN FEED 75-80% OF DINNER. ATE 100% OF SOUP, MEAT, PEACHES AND 25% OF POTAOES AND CARROTS. THEN DRANK 2BOXES OF JUICES AND A SPRITE. PT TOLERATED WELL CLLEAR ON HER REQUESTS AND NEEDS.
[2019-09-28] MEDS: morphine 10mg/0.5ml (conc. morphine) oral syringe PO PRN ×8 (01:16→22:45)
--- NOTE | 2019-09-28 01:16 | NUR ---
pt medicated for pain legs back shoulders generalized and abd
--- NOTE | 2019-09-28 03:10 | NUR ---
medicated for pain with roxanol and pt skin care done cleaned for inc of stool and new optifoam to sacral decub applied due to soiling from the other dressing. taking po fluids well.
--- NOTE | 2019-09-28 05:15 | NUR ---
medicated for pain, then repositioned in bed. liens changed under her.
--- NOTE | 2019-09-28 06:33 | NUR ---
Problems reprioritized. Patient report given, questions answered & plan of care reviewed with Sunita Blandon. Addendum: 09/28/19 at 0633 by Brooke Chambers RN Amended: Links added.
--- NOTE | 2019-09-28 06:39 | NUR ---
Patient in room [facility]. I have received report from KOBE EL and had the opportunity to ask questions and assume patient care.
[2019-09-28 07:00] VITALS: BP 85/48
--- NOTE | 2019-09-28 16:35 | NUR ---
Reassessment: Pt is DNR w/ comfort care. LBM 09/27. Will continue to monitor. Recommend: 1. continue carb controlled pureed diet per ST recs 2. bowel care as needed 3. wt per rx Addendum: 09/28/19 at [address] Amended: Links added.
--- NOTE | 2019-09-28 19:00 | NUR ---
Patient in room [facility]. I have received report from PRAVEEN BULLOCK and had the opportunity to ask questions and assume patient care. Addendum: 09/28/19 at 1900 by Brooke Chambers RN Amended: Links added.
--- NOTE | 2019-09-28 19:30 | NUR ---
medicated for pain with norco po positioned to comfort.
[2019-09-28 20:00] VITALS: BP 106/67
--- NOTE | 2019-09-28 20:20 | NUR ---
Problems reprioritized. Patient report given, questions answered & plan of care reviewed with KOBE EL.
--- NOTE | 2019-09-28 22:10 | NUR ---
welsh care done positioned to comfort and skin care done then medicated for pain with Roxanol at this time.
--- NOTE | 2019-09-29 00:18 | NUR ---
pt positioned to comfort no s&S of distress at this time.
[2019-09-29] MEDS: morphine 10mg/0.5ml (conc. morphine) oral syringe PO PRN ×4 (00:42→17:06)
--- NOTE | 2019-09-29 04:25 | NUR ---
Student documentation: I have reviewed and agree with all interventions, assessments performed and documented by SPEEDY ROBISON RN STUDENT.Student Medication Administration: For this medication-pass time frame, all medication were reviewed, dispensed, administered and documented per hospital policy by SPEEDY DAY RN STUDENT. Addendum: 09/29/19 at 0426 by Brooke Chambers RN Amended: Links added.
--- NOTE | 2019-09-29 05:30 | NUR ---
medicated for pain with roxanol and turned to comfort skin care given.
--- NOTE | 2019-09-29 06:20 | NUR ---
Problems reprioritized. Patient report given, questions answered & plan of care reviewed with MIKEY BULLOCK. Addendum: 09/29/19 at 0703 by Brooke Chambers RN Amended: Links added.
--- NOTE | 2019-09-29 07:12 | NUR ---
Patient in room [facility]. I have received report from Michelle BULLOCK and had the opportunity to ask questions and assume patient care.
[2019-09-29 08:00] VITALS: BP 83/44
[2019-09-29 11:00] VITALS: BP 121/59
[2019-09-29] MEDS ORDERED: morphine 10mg/ml inj. IV PRN (11:25)
[2019-09-29] MEDS: morphine 10mg/ml inj. IV PRN ×3 (13:51→23:13)
--- NOTE | 2019-09-29 17:36 | NUR ---
All cares given. Roxanol and Morphine given as per EMAR. patient able to eat 25% of both meals. Alert and orientated. will continue to monitor.
--- NOTE | 2019-09-29 18:07 | NUR ---
Problems reprioritized. Patient report given, questions answered & plan of care reviewed with Mercy BULLOCK.
[2019-09-29 18:15] VITALS: BP 92/54
[2019-09-29] MEDS ORDERED: PEG 400/HYPROMELLOSE/GLYCERIN 15ml bottle EACHEYE PRN (18:35)
--- NOTE | 2019-09-29 18:38 | NUR ---
Patient in room [facility]. I have received report from KOBE Del Angel and had the opportunity to ask questions and assume patient care.
[2019-09-30] MEDS: morphine 10mg/0.5ml (conc. morphine) oral syringe PO PRN (05:50)
--- NOTE | 2019-09-30 06:31 | NUR ---
Problems reprioritized. Patient report given, questions answered & plan of care reviewed with KOBE Del Angel.
--- NOTE | 2019-09-30 06:40 | NUR ---
Patient in room ISA 352. I have received report from AYAZ BULLOCK and had the opportunity to ask questions and assume patient care.
[2019-09-30 07:00] VITALS: BP 82/55
[2019-09-30] MEDS: morphine 10mg/ml inj. IV PRN ×2 (07:38→23:10)
[2019-09-30 07:52] VITALS: BP 82/55
[2019-09-30] MEDS: LORazepam 2 mg/ml vial IV PRN (08:53)
[2019-09-30 11:00] VITALS: BP 75/45
--- NOTE | 2019-09-30 14:10 | NUR ---
ALL cares given 2hrly turns done. patient given Ativan responded well resting comfortably
--- NOTE | 2019-09-30 16:49 | NUR ---
Patient is 64%o2 on 2L. Patients sister edgar notified of patients status. Note made in [facility] for [facility] to be called when patient expires. will continue to care for patient.
--- NOTE | 2019-09-30 18:33 | NUR ---
Patient in room [facility]. I have received report from KOBE Del Angel and had the opportunity to ask questions and assume patient care.
[2019-09-30 20:00] VITALS: BP 82/47
[2019-10-01] MEDS: morphine 10mg/ml inj. IV PRN ×2 (00:37→05:33)
--- NOTE | 2019-10-01 06:30 | NUR ---
Patient in room [facility]. I have received report from Mercy BULLOCK and had the opportunity to ask questions and assume patient care.
--- NOTE | 2019-10-01 07:10 | NUR ---
Problems reprioritized. Patient report given, questions answered & plan of care reviewed with KOBE Sanchez.
[2019-10-01 08:04] VITALS: BP 78/44
[2019-10-01] MEDS: morphine 2 MG/ML inj. syringe IV PRN ×2 (10:47→21:02)
--- NOTE | 2019-10-01 18:45 | NUR ---
Problems reprioritized. Patient report given, questions answered & plan of care reviewed with Aimee BULLOCK.
[2019-10-01 20:00] VITALS: BP 113/38
--- NOTE | 2019-10-01 20:21 | NUR ---
Patient in room [facility]. I have received report from KOBE Sanchez and had the opportunity to ask questions and assume patient care. Addendum: 10/01/19 at 2022 by Aimee Child RN Amended: Links added.
[2019-10-02] MEDS: morphine 2 MG/ML inj. syringe IV PRN ×4 (01:41→10:50)
[2019-10-02] MEDS: morphine 10mg/0.5ml (conc. morphine) oral syringe PO PRN ×4 (05:52→21:09)
--- NOTE | 2019-10-02 06:41 | NUR ---
Problems reprioritized. Patient report given, questions answered & plan of care reviewed with KOBE Sanchez. Addendum: 10/02/19 at 0642 by Aimee Child RN Amended: Links added.
--- NOTE | 2019-10-02 06:45 | NUR ---
Patient in room [facility]. I have received report from Aimee BULLOCK and had the opportunity to ask questions and assume patient care.
[2019-10-02 07:38] VITALS: BP 90/48
--- NOTE | 2019-10-02 15:16 | NUR ---
Had conversation with Cheryl from patients hospice care team, Cheryl visited with patient prior day, team feels that increasing morphine to 4mg iv and 15mg oral would be advantageous, the team also believes use of lidocaine patches to wound areas would also be advantages to patients comfort.
--- NOTE | 2019-10-02 17:44 | NUR ---
Daniel Surg 1089 Re: [address]. Cheryl from [facility] is hoping that you would increase IV and oral Morphine dosing as well as add lidocaine patches for wounds. Thanks Daniel. Hospitalist was sent this message at this time
--- NOTE | 2019-10-02 18:30 | NUR ---
Patient in room [facility]A 352. I have received report from Daniel BULLOCK and had the opportunity to ask questions and assume patient care.
--- NOTE | 2019-10-02 18:53 | NUR ---
Problems reprioritized. Patient report given, questions answered & plan of care reviewed with Yesica BULLOCK.
[2019-10-02 20:00] VITALS: BP 91/34
[2019-10-03] MEDS: morphine 2 MG/ML inj. syringe IV PRN ×2 (01:14→04:22)
[2019-10-03] MEDS: morphine 10mg/0.5ml (conc. morphine) oral syringe PO PRN ×3 (06:51→17:01)
[2019-10-03 07:00] VITALS: BP 98/55
--- NOTE | 2019-10-03 07:00 | NUR ---
Problems reprioritized. Patient report given, questions answered & plan of care reviewed with Helga BULLOCK.
[2019-10-03] MEDS: LORazepam 2 mg/ml vial IV PRN ×2 (10:58→19:39)
--- NOTE | 2019-10-03 15:18 | NUR ---
Spoke to patients sister Marie blanco received updated her on patients status, all questions answered.
--- NOTE | 2019-10-03 18:54 | NUR ---
Problems reprioritized. Patient report given, questions answered & plan of care reviewed with Yesica BULLOCK.
--- NOTE | 2019-10-03 22:23 | NUR ---
RN IS TO DOCUMENT YES TO ALL APPLICABLE AREAS Pronouncement of : 1. Time Physician Notified:[id number] 2. Date of :10-03-19 3. Time of : 2155 4. DNR/Withdraw life support documented:YES 5. Monitor strip has been placed on chart:YES 6. Assessment process is of one-minute duration and includes following criteria: a) Patient is unresponsive to all stimuli: YES b) Pupils fixed and non-reactive:YES c) Auscultation of precordium reveals absence of heart tones:YES d) Auscultation of lungs reveals absence of breath sounds:YES e) Absence of blood pressure / all vital signs:YES f) QRS complexes are not present on monitor / EKG strip:YES g) Pacer spikes without capture:YES 4. Comments: Marie has been notified
== END 2019-10-03 21:56 | disposition expired ==
LOC: ER 09:24 → ED HOLD 12:24 → CICU 2S 14:12 → SUR 3N 09-02 13:26
PROVIDERS: ADMIT Internal Medicine Critical Care Medicine; ATTEND Internal Medicine
PROC: 0DJ08ZZ Inspection of Upper Intestinal Tract, Via Natural or Artificial Opening Endoscopic (ICD-10-PCS; principal; 2019-08-31)
PROC: 02HV33Z Insertion of Infusion Device into Superior Vena Cava, Percutaneous Approach (ICD-10-PCS; 2019-08-31)
PROC: 30233N1 Transfusion of Nonautologous Red Blood Cells into Peripheral Vein, Percutaneous Approach (ICD-10-PCS; 2019-08-31)
PROC: 0W9G3ZZ Drainage of Peritoneal Cavity, Percutaneous Approach (ICD-10-PCS; 2019-09-02)
PROC: 0W9G3ZZ Drainage of Peritoneal Cavity, Percutaneous Approach (ICD-10-PCS; 2019-09-04)
DX: K74.69 Other cirrhosis of liver (principal); J96.01 Acute respiratory failure with hypoxia; G93.40 Encephalopathy, unspecified; I85.11 Secondary esophageal varices with bleeding; N17.9 Acute kidney failure, unspecified; K29.81 Duodenitis with bleeding; K76.6 Portal hypertension; K63.5 Polyp of colon; D69.6 Thrombocytopenia, unspecified; K20.9 Esophagitis, unspecified; K31.89 Other diseases of stomach and duodenum; R18.8 Other ascites; R64 Cachexia; K72.90 Hepatic failure, unspecified without coma; E11.42 Type 2 diabetes mellitus with diabetic polyneuropathy; E11.649 Type 2 diabetes mellitus with hypoglycemia without coma; D62 Acute posthemorrhagic anemia; E88.09 Other disorders of plasma-protein metabolism, not elsewhere classified; B19.20 Unspecified viral hepatitis C without hepatic coma; F11.90 Opioid use, unspecified, uncomplicated; F15.90 Other stimulant use, unspecified, uncomplicated; F17.210 Nicotine dependence, cigarettes, uncomplicated; Z66 Do not resuscitate; N39.0 Urinary tract infection, site not specified; B95.2 Enterococcus as the cause of diseases classified elsewhere; Z51.5 Encounter for palliative care; Z87.11 Personal history of peptic ulcer disease; Z87.01 Personal history of pneumonia (recurrent); Z68.24 Body mass index [BMI] 24.0-24.9, adult
CPT/HCPCS: 36415; 36556; 36600; 43235; 49083; 71045; 76937; 80053; 81001; 82140; 82330; 82570; 82803; 82948; 83036; 83735; 83880; 84100; 84300; 85018; 85025; 85027; 85610; 85730; 86885; 86900; 86901; 86920; 87077; 87081; 87088; 87186; 87207; 92508; 92616; 93005; 94760; 96374; 96375; 97116; 97124; 97161; 97530; 97535; 99152; 99291; A4620; C9113; G0378; J0696; J1815; J1885; J2001; J2060; J2175; J2250; J2270; J2354; J2405; J2704; J3010; J3490; J7030; J7050; P9016; P9047